=== PATIENT | male | born 1975 | race Caucasian/White ===

== ENCOUNTER 2022-03-05 18:53 | Inpatient (IN) ==
[2022-03-05 19:25] LABS: Basophils # (auto) 0.04 K/uL (0-0.2); Basophils % (auto) 0.5 %; Eosinophils # (auto) 0.09 K/uL (0-0.50); Eosinophils % (auto) 1.1 %; Hematocrit (blood only) 44.7 % (40.1-51.0); Hemoglobin 14.8 g/dl (14.0-18.0); Immature Granulocytes # (auto) 0.02 K/uL (0.00-0.02); Immature Granulocytes % (auto) 0.2 %; Lymphocytes # (auto) 2.11 K/uL (1.2-3.4); Lymphocytes % (auto) 25.7 %; Mean Corpuscular Hemoglobin 28.8 pg (25.0-34.0); Mean Corpuscular Hgb Conc 33.1 g/dL (32.0-36.0); Mean Platelet Volume 9.2 fL (9.4-12.4); Monocytes # (auto) 0.62 K/uL (0.24-0.82); Monocytes % (auto) 7.5 %; Neutrophils # (auto) 5.34 K/uL (1.4-6.5); Platelet Count 359 K/uL (130-400); RDW Coefficient of Variation 15.5 % (11.5-14.5); RDW Standard Deviation 49.1 fL (36.4-46.3); Red Blood Count 5.14 M/uL (4.63-6.08); White Blood Count 8.22 K/ul (4.8-10.8)
[2022-03-05 19:38] LABS: INR 1.2 (0.9-1.1); Partial Thromboplastin Ratio 0.9; Partial Thromboplastin Time 26.1 Seconds (21.0-31.0); Prothrombin Time 12.5 Seconds (9.0-12.0)
[2022-03-05 19:52] LABS: Troponin I High Sensitivity 35.1 pg/ml (0-20)
[2022-03-05 19:55] LABS: Albumin Globulin Ratio 1.3 (0.9-2); Albumin Level 3.9 gm/dl (3.4-5.0); BUN Creatinine Ratio 17.3 (10-20); Bilirubin,Total 1.1 mg/dl (0.2-1.0); Calcium 9.5 mg/dl (8.5-10.1); Creatinine Clr Calc Pharmacy 93.5 ml/min; Est GFR (African American) 98.6 ml/min; Est GFR (Non-African American) 85.1 ml/min; Globulin 3.1 gm/dl (2.5-4.0); Potassium 3.7 mmol/L (3.5-5.1)
--- NOTE | 2022-03-05 21:03 | XRay Report ---
XR chest 1V portable HISTORY: Atypical chest pain. Cough. COMPARISON: None. FINDINGS: No pneumothorax. No pleural effusions. The lungs are clear. The cardiac silhouette is mildl y enlarged. Cervical spinal fusion hardware is noted. No acute fractures identified. IMPRESSION: Mild cardiomegaly. ACT 112: Negative or not required by law. Electronically signed by: Misha Jerome M.D. 03/05/2022 9:02 PM
--- NOTE | 2022-03-05 23:03 | Emergency Department Note ---
Impression & Plan Chest pain, Abnormal EKG, Elevated troponin I level ED Provider Note NAME: JUDY READ AGE: 46 SEX: M : 1975 ARRIVES VIA: Walk-In INFORMANT: Patient, ED PROVIDER(S): Randolph Alejandro DO CHIEF COMPLAINT: Chest pain HPI: The patient is a 46-year-old male who presented to the emergency department for an evaluation of chest discomfort. The patient's been noticing chest discomfort as well as difficulty breathing. The patient states that the symptoms began over the course the last few weeks. He was seen at an outside facility and then transferred [place]. He states he had a work-up at that time but was discharged to follow-up as an outpatient. He has no primary bilingual patient support caseworker. His previous bilingual patient support caseworker retired. He has a history of ischemic cardiomyopathy. The patient has not had any cardiac work-up in some time. He presented to our facility today with the hopes of being evaluated for his chest discomfort. ROS: See above HPI for pertinent positives & negatives. A total of 10 systems reviewed and were otherwise negative. PAST MEDICAL HISTORY: See Below PAST SURGICAL HISTORY: See Below FAMILY HISTORY: See Below SOCIAL HISTORY: See Below HOME MEDICATIONS: See Below ALLERGIES: See Below VITALS: See Below PHYSICAL EXAMINATION: GENERAL: Patient is awake alert in no acute distress patient is resting comfortably and showing no signs of anxiety EYES: The conjunctivae are clear. The pupils are round and reactive. EARS, NOSE, MOUTH AND THROAT: The nose is without any evidence of any deformity. NECK: The neck is nontender and supple. RESPIRATORY: Diminished breath sounds are noted throughout. There is no tachypnea or conversational dyspnea. CARDIOVASCULAR: Regular rate and rhythm noted there no murmurs rubs or gallops normal S1 normal S2. GASTROINTESTINAL: The abdomen is soft. Abdomen is nontender. MUSCULOSKELETAL/EXTREMITIES: There is no evidence of gross deformity full range of motion is noted in the hips and shoulders. SKIN: Trace pedal edema was noted bilaterally. NEUROLOGIC: Patient is awake alert and oriented x3 MEDICAL DECISION MAKING: The patient is a 46-year-old male who presented to the emergency department for an evaluation of chest pain. The patient does have a history of coronary artery disease as well as cardiomyopathy. He states he has been doing well and taking all of his usual medications. He was seen at an outside facility recently for the similar complaints. He was transferred [place]. He states he had an observation at [place] but never had a complete cardiac work-up. He presents to our emergency department today requesting a full cardiac work-up. I discussed the patient's laboratory and radiographic studies with him. I also discussed the limitations of the emergency department work-up for chest pain with him. The patient had serial troponin measurements. He does have an underlying EKG which is abnormal. I have no previous EKG to compare this to. This reason and the patient's past medical history I discussed his condition with the on-call [facility] hospitalist. They have agreed to evaluate the patient in the emergency department. He was treated with aspirin in the emergency department. Triage Nursing notes reviewed. Prior medical records reviewed Vital Signs: reviewed and remarkable for elevated blood pressure. Differential diagnosis: Cardiac ischemia, aortic dissection, pulmonary embolism, pneumothorax, pneumonia, pericarditis, myocarditis, esophageal rupture, GERD, cholecystitis, pancreatitis, musculoskeletal, as well as other pathologies. ER treatment provided: See below Diagnostics interpreted by me: ECG: EKG was obtained in the emergency department. My interpretation is sinus tachycardia [address] segment depressions were noted in the inferior lateral leads. No previous tracing was available Cardiac Monitoring: An order was placed for continuous cardiac monitoring. The monitor shows a rate of 96 bpm with sinus rhythm. Laboratory studies: As stated above and show below. Imaging studies: See below. Radiographic imaging was reviewed by myself Consultation(s): I discussed this case with Dr. Salas who [facility]. Past Med/Surg History Medical History CAD (coronary atherosclerotic disease) High cholesterol History of heart attack Hypertension Social History Smoking Status: Current every day smoker Preferred Language: Spanish Feels Safe at Home: Yes Allergies Allergies Allergy/AdvReac Type Severity Reaction Status Date / Time Sulfa (Sulfonamide Allergy Intermediate Hives Verified 03/06/22 00:12 Antibiotics) Home Meds Home Medications Medication Instructions Recorded Confirmed albuterol sulfate 90 mcg/actuation 2 puff inhalation DIRECTED PRN 03/06/22 03/06/22 aerosol inhaler Shortness Of Breath Results & Data (ED) Vital Signs Vital Signs - 24 hr 03/05/22 18:59 03/05/22 22:33 03/05/22 22:47 Temperature 35.9 C L Temperature Source Temporal Artery Scan Pulse Rate 111 H Pulse Rate [Apical] 104 H 99 H Pulse Rhythm [Apical] Regular Pulse Strength [Apical] Normal Respiratory Rate 18 20 Respiratory Effort / Characteristics Non-Labored Spontaneous Non-Labored Spontaneous Respiratory Depth Normal Normal Respiratory Pattern Regular Blood Pressure 147/104 H Blood Pressure [Right Arm] 146/94 H Blood Pressure Mean 118 Blood Pressure Mean [Right Arm] 111 Blood Pressure Position Sitting Blood Pressure Position [Right Arm] Sitting Pulse Oximetry 98 95 98 Oxygen Delivery Method Room Air Room Air Room Air Sepsis Recent Fever Within 48 Hours No Sepsis New/Unexplained Change in Mental Status No Sepsis Action Taken by Nursing No Action Required 03/05/22 23:00 03/05/22 23:30 Temperature Temperature Source Pulse Rate 98 H Pulse Rate [Apical] Pulse Rhythm [Apical] Pulse Strength [Apical] Respiratory Rate 20 20 Respiratory Effort / Characteristics Respiratory Depth Respiratory Pattern Blood Pressure 129/96 123/81 Blood Pressure [Right Arm] Blood Pressure Mean 107 95 Blood Pressure Mean [Right Arm] Blood Pressure Position Blood Pressure Position [Right Arm] Pulse Oximetry 97 100 Oxygen Delivery Method Room Air Room Air Sepsis Recent Fever Within 48 Hours Sepsis New/Unexplained Change in Mental Status Sepsis Action Taken by Care Home Medications Current Medication List: was personally reviewed by me Laboratory Data Attestation: I reviewed the patient's lab results. 03/05/22 19:10 03/05/22 19:10 Lab Results 03/05/22 03/05/22 03/05/22 Range/Units 19:10 19:10 19:10 WBC 8.22 (4.8-10.8) K/ul RBC 5.14 (4.63-6.08) M/uL Hgb 14.8 (14.0-18.0) g/dl Hct 44.7 (40.1-51.0) % MCV 87.0 (80.0-100.0) fL MCH 28.8 (25.0-34.0) pg MCHC 33.1 (32.0-36.0) g/dL RDW Std Deviation 49.1 H (36.4-46.3) fL RDW Coeff of Nicolás 15.5 H (11.5-14.5) % Plt Count 359 (130-400) K/uL MPV 9.2 L (9.4-12.4) fL Immature Gran % (Auto) 0.2 % Neut % (Auto) 65.0 % Lymph % (Auto) 25.7 % Hickman % (Auto) 7.5 % Eos % (Auto) 1.1 % Baso % (Auto) 0.5 % Neut # (Auto) 5.34 (1.4-6.5) K/uL Lymph # (Auto) 2.11 (1.2-3.4) K/uL Hickman # (Auto) 0.62 (0.24-0.82) K/uL Eos # (Auto) 0.09 (0-0.50) K/uL Baso # (Auto) 0.04 (0-0.2) K/uL Immature Gran # (Auto) 0.02 (0.00-0.02) K/uL PT 12.5 H (9.0-12.0) Seconds INR 1.2 H (0.9-1.1) APTT 26.1 (21.0-31.0) Seconds PTT Ratio 0.9 Sodium 138 (136-145) mmol/L Potassium 3.7 (3.5-5.1) mmol/L Chloride 99 (98-107) mmol/L Carbon Dioxide 31 (21-32) mmol/L Anion Gap 8 (3-11) BUN 18 (6-23) mg/dl Creatinine 1.04 (0.6-1.4) mg/dl Est Cr Clr Drug Dosing 93.5 ml/min Est GFR ( Amer) 98.6 ml/min Est GFR (Non-Af Amer) 85.1 ml/min BUN/Creatinine Ratio 17.3 (10-20) Glucose 93 (70-99(Fasting)) mg/dl Calcium 9.5 (8.5-10.1) mg/dl Total Bilirubin 1.1 H (0.2-1.0) mg/dl AST 28 (13-39) U/L ALT 22 (7-52) U/L Alkaline Phosphatase 88 (34-104) U/L Troponin I High Sens 35.1 H (0-20) pg/ml Total Protein 7.0 (6.0-8.3) gm/dl Albumin 3.9 (3.4-5.0) gm/dl Globulin 3.1 (2.5-4.0) gm/dl Albumin/Globulin Ratio 1.3 (0.9-2) SARS-CoV-2, RNA, NAAT (NEGATIVE) 03/05/22 03/05/22 Range/Units 21:43 23:16 WBC (4.8-10.8) K/ul RBC (4.63-6.08) M/uL Hgb (14.0-18.0) g/dl Hct (40.1-51.0) % MCV (80.0-100.0) fL MCH (25.0-34.0) pg MCHC (32.0-36.0) g/dL RDW Std Deviation (36.4-46.3) fL RDW Coeff of Nicolás (11.5-14.5) % Plt Count (130-400) K/uL MPV (9.4-12.4) fL Immature Gran % (Auto) % Neut % (Auto) % Lymph % (Auto) % Hickman % (Auto) % Eos % (Auto) % Baso % (Auto) % Neut # (Auto) (1.4-6.5) K/uL Lymph # (Auto) (1.2-3.4) K/uL Hickman # (Auto) (0.24-0.82) K/uL Eos # (Auto) (0-0.50) K/uL Baso # (Auto) (0-0.2) K/uL Immature Gran # (Auto) (0.00-0.02) K/uL PT (9.0-12.0) Seconds INR (0.9-1.1) APTT (21.0-31.0) Seconds PTT Ratio Sodium (136-145) mmol/L Potassium (3.5-5.1) mmol/L Chloride (98-107) mmol/L Carbon Dioxide (21-32) mmol/L Anion Gap (3-11) BUN (6-23) mg/dl Creatinine (0.6-1.4) mg/dl Est Cr Clr Drug Dosing ml/min Est GFR ( Amer) ml/min Est GFR (Non-Af Amer) ml/min BUN/Creatinine Ratio (10-20) Glucose (70-99(Fasting)) mg/dl Calcium (8.5-10.1) mg/dl Total Bilirubin (0.2-1.0) mg/dl AST (13-39) U/L ALT (7-52) U/L Alkaline Phosphatase (34-104) U/L Troponin I High Sens 34.2 H (0-20) pg/ml Total Protein (6.0-8.3) gm/dl Albumin (3.4-5.0) gm/dl Globulin (2.5-4.0) gm/dl Albumin/Globulin Ratio (0.9-2) SARS-CoV-2, RNA, NAAT NEGATIVE (NEGATIVE) Administered Medications Discontinued Medications Aspirin (Aspirin Chew 324 Mg) 324 mg PO NOW STA Stop: 03/05/22 23:07 Last Admin: 03/05/22 23:12 Dose: 324 mg Documented By: LANRE Potassium Chloride (Potassium Chloride Crtab 20 Meq Tabcr) 40 meq PO NOW STA Stop: 03/06/22 00:37 Last Admin: 03/06/22 00:55 Dose: 40 meq Documented By: LANRE Imaging Data Radiologist's Impression: Chest X-Ray 03/05/22 19:04 XR chest 1V portable HISTORY: Atypical chest pain. Cough. COMPARISON: None. FINDINGS: No pneumothorax. No pleural effusions. The lungs are clear. The cardiac silhouette is mildly enlarged. Cervical spinal fusion hardware is noted. No acute fractures identified. IMPRESSION: Mild cardiomegaly. ACT 112: Negative or not required by law. Electronically signed by: Misha Jerome M.D. 03/05/2022 9:02 PM Discharge Plan Visit Data Chief Complaint: Cardiac Assessment Stated Complaint: HEART ISSUES, LOW BLOOD FLOW, ENLARGED ED Provider: Randolph Alejandro Discharge Problem: Chest pain, Abnormal EKG, Elevated troponin I level Patient Disposition: Being Evaluated by Hospitalist Discharge Instructions Interventions: ED Discharge Assessment Last Done: 03/06/22 00:39
[2022-03-05] MEDS ORDERED: ASPIRIN CHEW 324 MG PO STA (23:06)
--- NOTE | 2022-03-05 23:40 | History & Physical Report ---
Date of Service March 05, 2022 Assessment & Plan (1) Chest pain: Plan: 46-year-old man prior history of MT 2 years ago who presents with concern for persistent cough, and progressive chest discomfort, exertional dyspnea, paroxysmal nocturnal dyspnea x3 months. Admitted for further evaluation of abnormal EKG findings, and stable but mildly elevated troponin. Chest discomfort/elevated troponin -History of CAD (MT 2 years ago). No cardiac follow-up. Current everyday smoker. Recent echo 3 days ago showing severely diminished EF, per patient (unable to obtain records at this time) -ST depression in lateral leads on EKG, troponin of 35.1, 34.2 on admission. -Now s/p aspirin 324 mg x 1 in ED, KCl 40 mEq. -Given gradual presentation of symptoms, mildly elevated troponin on admission, suspect chronic or late MT vs acute MT/ACS. May also represent early presentation of CHF. * Admit to MedSurg with telemetry for evaluation of likely chronic/late MT * Cardiology consult for medical management. Patient will also likely need to establish care as he does not have a church administrator at present * AM TTE echo to assess LV function. BNP pending * Valsartan 80 mg daily * Aspirin 81 mg daily * Rosuvastatin 20 mg daily * As needed nitroglycerin, morphine for chest pain History of coronary artery disease -MT 2 years ago without proper cardiology follow-up since care home of former church administrator. * Cardiology consult, as above. Recommend establishing care as patient in need of church administrator * Recommend outpatient primary care follow-up Current everyday smoker * Nicotine patch * Recommend smoking cessation conversation Code: Full code Dispo: Med-Surg telemetry FEN/GI: NPO DVT Prophylaxis: Heparin 5000 units every 12 hours PT/OT: No Consults: Cardiology (2) Elevated troponin I level: (3) Abnormal EKG: History of Present Illness Primary Care Provider: NO PCP Eagle is a 46-year-old man with a history of CAD (MT 2 years ago) who presented to the emergency department for evaluation of chest discomfort. Specifically, he reports persistent cough, worsening shortness of breath with exertion, and orthopnea x3 months. As his symptoms began with cough, he thought it was a cold. After multiple treatments for presumed upper respiratory infection times several months, PCP recommended he go to the hospital for cardiac evaluation. He reports he got a "heart ultrasound" at [facility] showing a severely reduced EF from prior baseline. He was subsequently transferred to [place], where he reports he was discharged for outpatient follow-up. However, he has no church administrator, as his former church administrator retired. Therefore, he presented to this hospital to be evaluated for his symptoms. In the ED, vitals were notable for tachycardia to the 100s, and a blood pressure of 147/104. Labs were notable for PT 4.5, INR of 1.2, and an elevated high- sensitivity troponin of 35.1 (subsequent 2-hr troponin 34.2). EKG showed nonspecific ST depression in inferolateral leads. CXR notable for mild cardiomegaly. He received aspirin 324 mg x 1, and was admitted for evaluation of his abnormal EKG, troponin in the setting of his recent chest discomfort. On admission, he reports persistent productive cough, improved SOB, chest discomfort at the base of his sternum, and diaphoresis. ROS + bloating, orthopnea, paroxysmal nocturnal dyspnea, LE swelling, nausea, vomiting, and tingling in his fingers. Allergies Allergy/AdvReac Type Severity Reaction Status Date / Time Sulfa (Sulfonamide Allergy Intermediate Hives Verified 03/06/22 00:12 Antibiotics) Home Medications Medication Instructions Recorded Confirmed Type albuterol sulfate 90 mcg/actuation 2 puff inhalation DIRECTED PRN 03/06/22 03/06/22 History aerosol inhaler Shortness Of Breath Past Med/Surg History Medical History (Updated 03/07/22 @ 10:39 by Rich Mcnulty MD) Cardiomyopathy High cholesterol History of heart attack Hypertension Tobacco abuse Social History Smoking Status: Current every day smoker Cigarettes Per Day: 20; Hx Alcohol Use: No Hx Substance Use: Yes Last Used Substance: Hours (ago) Preferred Language: [place] Islander Communication Ability: Effective Consulting It Architect Required: No Beliefs That Will Affect Care: None Current Living Situation: Spouse Feels Safe at Home: Yes Assistive Devices: None Review of Systems Review of Systems: All systems reviewed & are unremarkable except as noted in HPI & below Physical Exam Physical Exam: General: Tired-appearing man who is otherwise alert, interactive, and in no acute distress. HEENT: Normocephalic, atraumatic. EOM intact. Good conjugate gaze. Nares patent. Moist mucosal membranes. Neck: Supple. No lymphadenopathy. Normal ROM. CV: Tachycardic. Normal S1 and S2. No murmurs gallops or rubs. Respiratory: Faint inspiratory, expiratory wheeze heard diffusely on auscultation. Abdomen: Soft, nondistended abdomen. No bruits heard on auscultation. No tenderness to deep palpation. Extremities: Capillary refill <2 sec. 2+ dp equal bilaterally. No pedal edema. Neuro: Alert and oriented x3. Skin: Clean, dry, and intact. No rashes, bruises, or erythema. Results & Data Results & Data ([facility]) Vital Signs (Past 12 Hours) Vital Signs Temp Pulse Pulse Resp BP BP Pulse Ox 03/05/22 23:00 98 H 20 129/96 97 03/05/22 22:47 99 H 98 03/05/22 22:33 104 H 20 146/94 H 95 03/05/22 18:59 35.9 C L 111 H 18 147/104 H 98 O2 Del Method 03/05/22 23:00 Room Air 03/05/22 22:47 Room Air 03/05/22 22:33 Room Air 03/05/22 18:59 Room Air Supervising Physician Co-Signing Physician Notes Attending addendum: I have physically seen this patient, have supervised the medical residents contreras stark, and agree with the H&P unless as otherwise noted. Assessment and Plan: Chest pain/elevated troponin/CAD/history of MT 3 years ago/systolic heart dysfunction- Abnormal EKG with ST depression lateral leads In ED given aspirin 324 mg and potassium chloride 40 mEq The patient will be admitted to telemetry for serial cardiac enzymes, serial EKG's, cardiac rhythm monitoring and a 2-D echocardiogram with Dopplers. Continue aspirin 81 mg daily and valsartan 80 mg daily Cardiology consult Tobacco use disorder- Nicotine patch Cessation counseling Remaining orders and notations as noted Resident Activity Tracking Resident Involvement: Resident Care Provided Care Provided: Adult Hospital Medicine (1) Chest pain Chest pain type: unspecified Qualified Code(s): R07.9 - Chest pain, unspeci fied
[2022-03-06] MEDS ORDERED: POTASSIUM CHLORIDE CRTAB 20 MEQ TABCR PO STA (00:36)
[2022-03-06] MEDS ORDERED: MoRPHine SULFATE 2 MG/ML CARP IV PRN ×2 (00:41→22:04)
[2022-03-06] MEDS ORDERED: ACETAMINOPHEN 325 MG TAB PO PRN (00:41)
[2022-03-06] MEDS ORDERED: ONDANSETRON INJ 2 MG/ML 2 ML VIAL IV PRN (00:41)
[2022-03-06] MEDS ORDERED: POLYETHYLENE (MIRALAX) 17 GM PACK PO PRN (00:41)
[2022-03-06] MEDS ORDERED: NITROGLYCERIN SL 0.4 MG/TAB TAB SL PRN (00:41)
[2022-03-06] MEDS ORDERED: VALSARTAN 80 MG TAB PO STA (01:01)
[2022-03-06] MEDS ORDERED: ALBUTEROL HFA 8 GM INHALER INH ONE (01:12)
[2022-03-06 01:49] LABS: Magnesium 1.9 mg/dl (1.7-2.4)
[2022-03-06 01:55] LABS: Phosphorus 3.7 mg/dl (2.5-4.9)
[2022-03-06] MEDS ORDERED: FLUARIX QUADRIVALENT 0.5 ML SYR IM ONE (05:04)
[2022-03-06] MEDS ORDERED: PNEUMOCOCCAL POLYSACCHARIDES 25 MCG/0.5 ML VIAL/SYR IM ONE (05:04)
[2022-03-06 06:54] LABS: Basophils # (auto) 0.06 K/uL (0-0.2); Basophils % (auto) 0.7 %; Eosinophils # (auto) 0.08 K/uL (0-0.50); Hematocrit (blood only) 44.3 % (40.1-51.0); Hemoglobin 14.8 g/dl (14.0-18.0); Immature Granulocytes # (auto) 0.02 K/uL (0.00-0.02); Immature Granulocytes % (auto) 0.2 %; Lymphocytes % (auto) 28.7 %; Mean Corpuscular Hemoglobin 28.7 pg (25.0-34.0); Mean Corpuscular Hgb Conc 33.4 g/dL (32.0-36.0); Mean Platelet Volume 9.6 fL (9.4-12.4); Monocytes # (auto) 0.63 K/uL (0.24-0.82); Monocytes % (auto) 7.9 %; Neutrophils # (auto) 4.92 K/uL (1.4-6.5); Neutrophils % (auto) 61.5 %; Platelet Count 368 K/uL (130-400); RDW Coefficient of Variation 15.6 % (11.5-14.5); RDW Standard Deviation 48.8 fL (36.4-46.3); Red Blood Count 5.15 M/uL (4.63-6.08); White Blood Count 8.01 K/ul (4.8-10.8)
[2022-03-06 07:31] LABS: Troponin I High Sensitivity 32.4 pg/ml (0-20)
[2022-03-06 07:48] LABS: Albumin Level 3.8 gm/dl (3.4-5.0); Bilirubin,Total 1.3 mg/dl (0.2-1.0); Calcium 9.1 mg/dl (8.5-10.1)
[2022-03-06 07:54] LABS: BUN Creatinine Ratio 22.2 (10-20); Creatinine Clr Calc Pharmacy 142.4 ml/min; Est GFR (African American) 117.5 ml/min; Est GFR (Non-African American) 101.4 ml/min
[2022-03-06 07:56] LABS: Albumin Globulin Ratio 1.3 (0.9-2); Globulin 2.9 gm/dl (2.5-4.0); Total Protein 6.7 gm/dl (6.0-8.3)
[2022-03-06] MEDS: NICOTINE 21 MG/24 HR TDSY TD SCH (08:41)
[2022-03-06] MEDS: ASPIRIN 81 MG ECTAB PO SCH (08:42)
[2022-03-06] MEDS: ROSUVASTATIN CALCIUM 20 MG TAB PO SCH (08:42)
[2022-03-06] MEDS: HEPARIN SOD 5,000 UNIT/0.5 ML VIAL SQ SCH ×2 (08:42→21:26)
[2022-03-06] MEDS ORDERED: VALSARTAN 80 MG TAB PO SCH (09:00)
--- NOTE | 2022-03-06 09:38 | Hospitalist Progress Note ---
Date of Service March 06, 2022 Assessment & Plan (1) Chest pain: Plan: 46-year-old man prior history of NM 2 years ago with associated EF reduction to 15% now recovering to 40%, current daily tobacco use, who presents with concern for persistent cough, and progressive chest discomfort, exertional dyspnea, paroxysmal nocturnal dyspnea x3 months. Admitted for further evaluation of abnormal EKG findings, and stable but mildly elevated troponin. Acute on chronic HFrEF exacerbation -BNP 2200 and CXR- mild cardiomegaly w/o overt pulmonary edema -TTE pending. Awaiting previous TTE results from [facility] which reportedly showed severely reduced EF -Cardiology consulted -Initiate Lasix 40 mg IV daily -Initiate spironolactone 25 mg daily -Discontinue valsartan, initiate Entresto -Initiate beta roque once acute decompensation resolving and HR/BP permits -Should initiate SGLT2 inhibitor in near future after acute decompensation resolves Coronary artery disease -Troponin 35 with downtrend to 32 -EKG with ST-changes of V5-V6 though no overt elevations/depressions -Suspect pt's chest discomfort driven by CHF as above rather than ACS/CAD, mild troponin elevation + ST changes likely due to demand ischemia -Continue statin, aspirin, Entresto -Cardiology consulted -Initiate beta roque later during hospital stay -Cardiomyopathy etiology uncertain- awaiting [place] records for review -May need cardiac catheterization this stay if cardiomyopathy is new Code: Full code Dispo: Medical/surgical with telemetry FEN/GI: Low-salt diet DVT Prophylaxis: Heparin 5000u BID PT/OT: Will order Consults: Cardiology (2) Elevated troponin I level: (3) Abnormal EKG: Admission and Anticipated Discharge Date Admission Date: March 05, 2022 Supervising Physician Co-Signing Physician Notes I personally examined the patient and verified all rachel points of history and exam, discussed case, and agree with decision making with Dr Uribe. Feeling better but still not quite breathing perfectly. Extensive discussion of his prior historyafter his NM was actually walking up to about as much as 5 miles a dayits only been in the last month or so that he has had a drastic reduction in exercise tolerance. While it was not entirely clear if he ran out of all of his meds or some or how long he was out of his medicationsbetween his regular physicians retiring or moving away, it does sound like he was out of medications at least some for the last monthalthough it was odd to because even with very directed questioning he would give sort of vague and roundabout answers. Vitals noted, in general he is awake and alert pleasant no distress. HEENT normocephalic atraumatic mucous membranes moist. Lungs show faint bibasilar rales. No focal neurodeficits. Acute on chronic HFrEF with severe ischemic cardiomyopathydiuresis, afterload reduction, med management. Hopefully home soon. Definitely needs close outpatient follow-up. Otherwise as above. Subjective No acute events overnight. Pt was tired and sleepy on evaluation this morning. He denied any active chest pain and felt his breathing was very slightly improving. Otherwise reported fatigue. Denied other acute complaints. Review of Systems Review of Systems: Per HPI Physical Exam Physical Exam: General: Tired-appearing man laying in bed HEENT: Moist mucous membranes Neck: No JVD b/l CV: RRR, normal S1 and S2, Low-grade systolic murmur Respiratory: Diffuse inspiratory and expiratory wheezes, diminished breath sounds Abdomen: Soft, nondistended abdomen. No tenderness to deep palpation. Extremities: Capillary refill <2 sec. 2+ dorsalis pedis pulses equal bilaterally. No pedal edema. Skin: No rashes, bruises, or erythema. Results & Data Results & Data ([facility]) Vital Signs (Past 12 Hours) Vital Signs Temp Pulse Pulse Resp BP BP Pulse Ox 03/06/22 07:59 03/06/22 07:59 36.6 C 89 20 123/86 99 03/06/22 06:35 03/06/22 06:00 88 17 126/94 92 03/06/22 05:30 19 138/97 95 03/06/22 05:00 90 20 135/97 92 03/06/22 04:30 92 H 20 118/92 92 03/06/22 04:04 90 17 119/84 95 03/06/22 03:30 93 H 22 114/84 99 03/06/22 03:00 94 H 20 123/100 100 03/06/22 00:47 96 H 21 145/112 H 100 03/05/22 23:30 20 123/81 100 03/05/22 23:00 98 H 20 129/96 97 03/05/22 22:47 99 H 98 03/05/22 22:33 104 H 20 146/94 H 95 Pulse Ox O2 Del Method O2 Del Method 03/06/22 07:59 99 Room Air 03/06/22 07:59 Room Air 03/06/22 06:35 Room Air 03/06/22 06:00 Room Air 03/06/22 05:30 Room Air 03/06/22 05:00 Room Air 03/06/22 04:30 Room Air 03/06/22 04:04 Room Air 03/06/22 03:30 Room Air 03/06/22 03:00 Room Air 03/06/22 00:47 Room Air 03/05/22 23:30 Room Air 03/05/22 23:00 Room Air 03/05/22 22:47 Room Air 03/05/22 22:33 Room Air Resident Activity Tracking Resident Involvement: Resident Care Provided Care Provided: Adult Hospital Medicine (1) Chest pain Chest pain type: unspecified Qualified Code(s): R07.9 - Chest pain, unspecified
[2022-03-06 09:44] LABS: Chol HDL Ratio 5.7 (0-5)
[2022-03-06] MEDS ORDERED: ALBUTEROL HFA 8 GM INHALER INH PRN (10:58)
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
[2022-03-06] MEDS: SPIRONOLACTONE 25 MG TAB PO SCH (12:21)
[2022-03-06] MEDS: FUROSEMIDE 40 MG/4 ML VIAL IV SCH (12:22)
--- NOTE | 2022-03-06 15:15 | XCELERA ---
[id number]
--- NOTE | 2022-03-06 19:00 | Billing Data ---
Date of Service March 06, 2022 Coding Level of Care Code 20862 SUB INP/OBS CARE MIN
[2022-03-06] MEDS ORDERED: ACETAMINOPHEN 325 MG SUPP PR STA (21:14)
[2022-03-06] MEDS ORDERED: MoRPHine SULFATE 2 MG/ML CARP IV STA (22:04)
[2022-03-07] MEDS: ACETAMINOPHEN 500 MG TAB PO SCH ×3 (05:00→21:12)
--- NOTE | 2022-03-07 06:39 | Electrocardiogram Report ---
Test Reason : Blood Pressure : / mmHG Vent. Rate : 108 BPM Atrial Rate : 108 BPM P-R Int : 170 ms QRS Dur : 122 ms QT Int : 368 ms P-R-T Axes : 072 -40 078 degrees QTc Int : 493 ms Sinus tachycardia Biatrial enlargement Left axis deviation Non-specific intra-ventricular conduction block Left ventricular hypertrophy with QRS widening Nonspecific ST and T wave abnormality Abnormal ECG No previous ECGs available Confirmed by Rich Mcnulty ([id number]) on 03/07/2022 6:38:53 AM Referred By: REFERRED SELF Confirmed By:Rich Mcnulty
[2022-03-07] MEDS ORDERED: MoRPHine SULFATE 2 MG/ML CARP IV PRN (07:22)
[2022-03-07 07:23] LABS: Basophils # (auto) 0.04 K/uL (0-0.2); Basophils % (auto) 0.6 %; Eosinophils # (auto) 0.08 K/uL (0-0.50); Eosinophils % (auto) 1.1 %; Hematocrit (blood only) 46.2 % (40.1-51.0); Hemoglobin 15.5 g/dl (14.0-18.0); Immature Granulocytes # (auto) 0.01 K/uL (0.00-0.02); Immature Granulocytes % (auto) 0.1 %; Lymphocytes # (auto) 2.35 K/uL (1.2-3.4); Lymphocytes % (auto) 32.4 %; Mean Corpuscular Hemoglobin 28.4 pg (25.0-34.0); Mean Corpuscular Hgb Conc 33.5 g/dL (32.0-36.0); Mean Corpuscular Volume 84.8 fL (80.0-100.0); Mean Platelet Volume 9.6 fL (9.4-12.4); Monocytes # (auto) 0.75 K/uL (0.24-0.82); Monocytes % (auto) 10.3 %; Neutrophils # (auto) 4.03 K/uL (1.4-6.5); Neutrophils % (auto) 55.5 %; Platelet Count 372 K/uL (130-400); RDW Coefficient of Variation 15.8 % (11.5-14.5); RDW Standard Deviation 48.3 fL (36.4-46.3); Red Blood Count 5.45 M/uL (4.63-6.08); White Blood Count 7.26 K/ul (4.8-10.8)
[2022-03-07 07:28] LABS: Estimated Average Glucose 146 mg/dl; Hemoglobin A1C 6.7 % (4.5-5.6)
[2022-03-07] MEDS: HEPARIN SOD 5,000 UNIT/0.5 ML VIAL SQ SCH ×2 (08:08→21:12)
[2022-03-07 08:44] LABS: Albumin Globulin Ratio 1.3 (0.9-2); Albumin Level 3.8 gm/dl (3.4-5.0); BUN Creatinine Ratio 22.3 (10-20); Bilirubin,Total 1.3 mg/dl (0.2-1.0); Calcium 8.9 mg/dl (8.5-10.1); Creatinine Clr Calc Pharmacy 79.5 ml/min; Est GFR (African American) 82.1 ml/min; Est GFR (Non-African American) 70.9 ml/min; Globulin 2.9 gm/dl (2.5-4.0); Magnesium 1.9 mg/dl (1.7-2.4); Phosphorus 3.5 mg/dl (2.5-4.9); Potassium 3.8 mmol/L (3.5-5.1); Total Protein 6.7 gm/dl (6.0-8.3)
[2022-03-07] MEDS ORDERED: VALSARTAN/SACUBITRIL 26/24MG TAB PO SCH (09:00)
[2022-03-07] MEDS: ROSUVASTATIN CALCIUM 20 MG TAB PO SCH (09:29)
[2022-03-07] MEDS: NICOTINE 21 MG/24 HR TDSY TD SCH (09:29)
[2022-03-07] MEDS: SPIRONOLACTONE 25 MG TAB PO SCH (09:30)
[2022-03-07] MEDS: ASPIRIN 81 MG ECTAB PO SCH (09:30)
[2022-03-07] MEDS: FUROSEMIDE 40 MG/4 ML VIAL IV SCH (09:30)
--- NOTE | 2022-03-07 10:16 | Cardiology Progress Note ---
Date of Service March 07, 2022 Assessment & Plan (1) Acute HFrEF (heart failure with reduced ejection fraction): (2) Cardiomyopathy: (3) Chest pain: (4) Palpitations: (5) Elevated troponin I level: (6) Mitral regurgitation: (7) Tricuspid regurgitation: (8) Pulmonary hypertension: (9) Tobacco abuse: (10) Ventricular tachycardia: (11) Paroxysmal SVT (supraventricular tachycardia): Plan ASSESSMENT/PLAN: 1. Acute heart failure with reduced EF: He appears hypervolemic. Received Lasix 40 mg IV this morning and yesterday. Had reasonable urine output. Labs suggest azotemia. Continue to monitor. Strict I's and O's.. Daily weights. Low-sodium diet, less than 2000 mg daily. During this hospital stay, he has been placed on Entresto and spironolactone. Will start metoprolol succinate 25 mg today. SGLT2 inhibitor in the near future. Heart failure program referral. 2. Cardiomyopathy: Nonischemic. Had cardiac catheterization at [facility] in 2019 with EF of 10 to 15% at that time. Other secondary work-up ordered. Medical therapy as above. ICD for primary prevention and no significant improvement at this time optimal medical therapy in 3 months. 3. Pulmonary hypertension: Likely at least due to CHF. Also likely to have COPD or emphysema given significant smoking history. RVSP likely to improve with diuresis. 4. Mitral and tricuspid regurgitation: Nonsevere mitral regurgitation with severe tricuspid regurgitation. These may improve with diuresis. Will monitor over time. 5. Chest pain: No CAD in June 2019. Continues to have intermittent chest discomfort. Troponin has been flat. May be due to CHF exacerbation. 6. Palpitations: Continue telemetry. Noted to have nonsustained ventricular tachycardia and nonsustained SVT. Beta-roque initiated. 7. Elevated troponin: Likely due to decompensated CHF. No CAD in 2019. 8. Ventricular tachycardia and SVT: Noted on telemetry. Unclear if he was symptomatic. Initiating beta-roque. 9. Disposition: Significantly ill gentleman with severely reduced LV systolic function. Cardiology will continue to follow along. Expect several day hospital stay. Patient care communicated with primary hospitalist, Dr. Leija. HF program referral. Highly complex medical issues. Admission and Anticipated Discharge Date Admission Date: March 05, 2022 Subjective He continues to have shortness of breath and orthopnea. He had an episode of chest discomfort today that apparently resolved with nitroglycerin. He spent most of our meeting today talking about his concerns with his bipolar disorder and making sure that he is receiving appropriate treatment. He has his medication list on his phone and it appears as though he takes Abilify. He denies syncope, edema, or bleeding. He has noted palpitations. He describes the chest pain as a flutter sensation but then later describes it as a sharp pain. He was chest pain-free at the time of our visit. Review of systems: As above. Physical Exam Physical Exam: Gen.: No acute distress. Alert. HEENT: Anicteric sclera. Neck: Elevated JVD. Hepatojugular reflux noted. Cardiac: No ventricular heave. Regular. Normal S1-S2. 2/6 holosystolic murmur best heard at the apex. No rubs or gallops. Pulmonary: Decreased breath sounds throughout both lung [place] with minimal wheezing. Abdomen: Soft, nontender, nondistended, with normoactive bowel sounds. No bruits noted. Extremities: 2+ radial pulses bilaterally. 2+ posterior tibialis pulses bilaterally. Trace bilateral pitting edema. No cyanosis. Psychiatric: Affect appears appropriate. Results & Data ([facility]) Vital Signs (Past 12 Hours) Vital Signs Temp Pulse Resp BP Pulse Ox O2 Del Method 03/07/22 07:50 36.7 C 84 20 157/78 H 99 Room Air 03/07/22 07:22 36.5 C 87 18 136/94 95 Room Air 03/06/22 22:58 36.6 C 92 H 18 138/101 H 98 Room Air Intake & Output 03/05/22 03/06/22 03/07/22 03/08/22 06:59 06:59 06:59 06:59 Intake Total 1020 / 1020 Output Total 2200 / 2200 Balance -1180 / -1180 Weight 290 lb 2.053 oz 164 lb 3.91 oz Laboratory Results Laboratory Results - last 24 hr 03/07/22 03/07/22 03/07/22 06:10 06:10 06:10 WBC 7.26 RBC 5.45 Hgb 15.5 Hct 46.2 MCV 84.8 MCH 28.4 MCHC 33.5 RDW Std Deviation 48.3 H RDW Coeff of Nicolás 15.8 H Plt Count 372 MPV 9.6 Immature Gran % (Auto) 0.1 Neut % (Auto) 55.5 Lymph % (Auto) 32.4 Cowley % (Auto) 10.3 Eos % (Auto) 1.1 Baso % (Auto) 0.6 Neut # (Auto) 4.03 Lymph # (Auto) 2.35 Cowley # (Auto) 0.75 Eos # (Auto) 0.08 Baso # (Auto) 0.04 Immature Gran # (Auto) 0.01 Sodium 133 L Potassium 3.8 Chloride 96 L Carbon Dioxide 29 Anion Gap 8 BUN 27 H Creatinine 1.21 D Est Cr Clr Drug Dosing 79.5 Est GFR ( Amer) 82.1 Est GFR (Non-Af Amer) 70.9 BUN/Creatinine Ratio 22.3 H Glucose 119 H Estimat Average Glucose 146 Hemoglobin A1c 6.7 H Calcium 8.9 Phosphorus 3.5 Magnesium 1.9 Total Bilirubin 1.3 H AST 26 ALT 21 Alkaline Phosphatase 80 Total Protein 6.7 Albumin 3.8 Globulin 2.9 Albumin/Globulin Ratio 1.3 Triglycerides 123 Cholesterol 163 LDL Cholesterol, Calc 111 VLDL Cholesterol, Calc 25 HDL Cholesterol 27 Cholesterol/HDL Ratio 6.0 H Diagnostic Findings Telemetry personally reviewed: 7 beat run of nonsustained ventricular tachycardia noted this morning. Also, at 11:31 PM on 01/04/2023, nonsustained SVT. Otherwise, sinus rhythm and overall heart rate trend has improved. Chart reviewed. Labs reviewed: Hyponatremia and labs suggest azotemia. [facility] outside records reviewed including discharge summary and cardiac catheteri zation report. Cardiac catheterization report [facility] 07/13/2019: No CAD. EF 10 to 15%. LVEDP 24. ECG personally reviewed 01/05/2023: Sinus rhythm 77 bpm. IVCD. Nonspecific T wave abnormality. Medications Administered Current Inpatient Medications Acetaminophen (Acetaminophen 500 Mg Tab) 1,000 mg PO Q8H JUSTINO Stop: 04/06/22 03:59 Last Admin: 03/07/22 05:00 Dose: 1,000 mg Albuterol (Albuterol Hfa 8 Gm Inhaler) 2 puffs INH Q4H PRN PRN Reason: dyspnea Stop: 04/05/22 10:57 Aspirin (Aspirin 81 Mg Ectab) 81 mg PO QAM JUSTINO Stop: 04/05/22 08:59 Last Admin: 03/07/22 09:30 Dose: 81 mg Heparin Sodium (Porcine) (Heparin Sod 5,000 Unit/0.5 Ml Vial) 5,000 units SQ Q12 [facility] Stop: 04/05/22 08:59 Last Admin: 03/07/22 08:08 Dose: Not Given Metoprolol Tartrate (Metoprolol Tartrate 25 Mg Tab) [facility] [place] Stop: 04/07/22 08:59 Miscellaneous (Remove Nicoderm Patch) 1 each N/A DAILY@0859 [facility] Stop: 04/05/22 08:58 Last Admin: 03/07/22 08:08 Dose: 1 each Morphine Sulfate (Morphine Sulfate 2 Mg/Ml Carp) 2 mg IV Q2H PRN PRN Reason: Pain Stop: 03/20/22 22:03 Nicotine (Nicotine 21 Mg/24 Hr Tdsy) 21 mg TD [facility] Stop: 04/05/22 08:59 Last Admin: 03/07/22 09:29 Dose: 21 mg Nitroglycerin (Nitroglycerin Sl 0.4 Mg/Tab Tab) 0.4 mg SL UD PRN PRN Reason: Chest Pain Stop: 04/05/22 00:40 Last Admin: 03/07/22 07:54 Dose: 0.4 mg Ondansetron HCl (Ondansetron Inj 2 Mg/Ml 2 Ml Vial) 4 mg IV Q6H PRN PRN Reason: Nausea Stop: 04/05/22 00:40 Last Admin: 03/07/22 07:14 Dose: 4 mg Polyethylene Glycol (Polyethylene (Miralax) 17 Gm Pack) 17 gm PO DAILY PRN PRN Reason: Constipation Stop: 04/05/22 00:40 Rosuvastatin Calcium (Rosuvastatin Calcium 20 Mg Tab) 40 mg PO [facility] Stop: 04/07/22 08:59 Sacubitril/Valsartan (Valsartan/Sacubitril 51/49 Mg Tab) 1 tab PO BID [facility] Stop: 04/06/22 20:59 Spironolactone (Spironolactone 25 Mg Tab) 25 [facility] [place] Stop: 04/05/22 11:44 Last Admin: 03/07/22 09:30 Dose: 25 mg PG Care Time/CCT Total # of Minutes Spent Total Time Spent with Patient: Total time spent is greater than 50% in coordination of care (as documented) at patient's floor/unit and/or counseling patient: Coding Level of Care Code 76008 SUB INP/OBS CARE 350MIN Diagnoses Acute HFrEF (heart failure with reduced ejection fraction) I50.21 Cardiomyopathy I42.9 Chest pain R07.9 Chest pain type: unspecified Palpitations R00.2 Elevated troponin I level R77.8 Mitral regurgitation I34.0 Tricuspid regurgitation I07.1 Pulmonary hypertension I27.20 Tobacco abuse Z72.0 Ventricular tachycardia I47.20 Paroxysmal SVT (supraventricular tachycardia) I47.1 (1) Chest pain Chest pain type: unspecified Qualified Code(s): R07.9 - Chest pain, unspecified
--- NOTE | 2022-03-07 10:41 | Hospitalist Progress Note ---
Date of Service March 07, 2022 Assessment & Plan (1) Chest pain: Plan: 46-year-old man prior history of ND 2 years ago with associated EF reduction to 15% now recovering to 40%, current daily tobacco use, who presents with concern for persistent cough, and progressive chest discomfort, exertional dyspnea, paroxysmal nocturnal dyspnea x3 months. Admitted for further evaluation of abnormal EKG findings, and stable but mildly elevated troponin. Acute on chronic HFrEF exacerbation -BNP 2200 and CXR- mild cardiomegaly w/o overt pulmonary edema -TTE -15-20% EF, severe global hypokinesis, LVH, severe biatrial dilation -Cardiology consulted -Today he is improving in regard to fluid status, -1.2L balance with Cr 0.9 - > 1.2 -Will switch Lasix 40 mg IV to PO tomorrow -Continue spironolactone 25 mg daily -Increased Entresto dose to today -Initiated Toprol 25 mg today -Will prescribe SGLT2 inhibitor on discharge -Will need 3 months of optimal therapy with EF < 35% before consideration of ICD for primary prevention of SCD Nonischemic cardiomyopathy -Troponin 35 with downtrend to 32 -EKG with ST-changes of V5-V6 though no overt elevations/depressions -Suspect pt's chest discomfort driven by CHF as above rather than ACS/CAD, mild troponin elevation + ST changes likely due to demand ischemia -Cardiology consulted -[place] records reviewed- catheterization 2019 does not suggest CAD -Continue medical management in interim- statin, aspirin, Entresto, beta roque Hyperlipidemia -Total 163, LDL 111, HDL 25 -Increased rosuvastatin to 40 mg today Type 2 diabetes -New diagnosis, A1C 6.7% -Avoiding SSI/basal insulin for now as BSGs acceptable -Will discuss lifestyle modification with patient Agitation -May be due to anxiety/depression rather than bipolar disorder although pt states he has this diagnosis -Will re-initiate his Abilify 5 mg daily per home medications Code: Full code Dispo: Medical/surgical with telemetry FEN/GI: Low-salt heart-healthy diet, 1500 ml fluid restriction DVT Prophylaxis: Heparin 5000u BID PT/OT: Will order Consults: Cardiology (2) Elevated troponin I level: (3) Abnormal EKG: Admission and Anticipated Discharge Date Admission Date: March 05, 2022 Supervising Physician Co-Signing Physician Notes I personally examined the patient and verified all rachel points of history and exam, discussed case, and agree with decision making with Dr Uribe. Overall feeling slightly but surely better. Probably does still have a little bit of orthopneapredominantly noted as a restlessness while he was trying to sleep. Vitals noted, in general he is awake and alert pleasant no distress. HEENT normocephalic atraumatic mucous membranes moist. Breathing unlabored no accessory muscle use good effort. Skin no rashes pallor or icterus. No focal neurodeficits. Acute on chronic HFrEF with severe ischemic cardiomyopathydiuresis, afterload reduction, continue to titrate med management. Hopefully home soon. Definitely needs close outpatient follow-up. Otherwise as above. Subjective Overnight, pt was reportedly irate and told hospitalist he has bipolar disorder that isn't being treated while he's here in the hospital. No behavioral disturbances. Earlier this morning around 8 AM, pt reportedly began to experience 10/10 sharp substernal L-sided chest pain along with nausea. He did receive nitroglycerin and by the time I came to evaluate him a few minutes after pain onset, he stated it was improving to a 7/10. EKG at the time was not concerning for new infarction. Review of Systems Review of Systems: Per HPI Physical Exam Physical Exam: General: Tired-appearing man laying in bed HEENT: Moist mucous membranes Neck: No JVD b/l CV: RRR, normal S1 and S2, Low-grade systolic murmur Respiratory: Diminished but improved breath sounds compared to day prior, no basilar crackles appreciated today, mild expiratory wheezes Abdomen: Soft, nondistended abdomen. No tenderness to deep palpation. Extremities: Capillary refill <2 sec. 2+ dorsalis pedis pulses equal bilaterall y. No pedal edema. Skin: No rashes, bruises, or erythema. Results & Data Results & Data ([facility]) Vital Signs (Past 12 Hours) Vital Signs Temp Pulse Resp BP Pulse Ox O2 Del Method 03/07/22 07:50 36.7 C 84 20 157/78 H 99 Room Air 03/07/22 07:22 36.5 C 87 18 136/94 95 Room Air 03/06/22 22:58 36.6 C 92 H 18 138/101 H 98 Room Air Resident Activity Tracking Resident Involvement: Resident Care Provided Care Provided: [facility] (1) Chest pain Chest pain type: unspecified Qualified Code(s): R07.9 - Chest pain, unspecified
[2022-03-07] MEDS: METOPROLOL SUCC 25MG EXT REL TAB PO SCH (11:13)
[2022-03-07 12:25] LABS: Ferritin 31.7 ng/ml (8-388)
[2022-03-07] MEDS: ARIPiprazole 5 MG TAB PO SCH (12:38)
--- NOTE | 2022-03-07 17:28 | Billing Data ---
Date of Service March 07, 2022 Coding Level of Care Code 96457 SUB INP/OBS CARE MIN
[2022-03-07] MEDS ORDERED: NICOTINE 21 MG/24 HR TDSY TD SCH (19:45)
[2022-03-07] MEDS ORDERED: MELATONIN 3 MG TAB PO PRN (20:45)
[2022-03-07] MEDS: VALSARTAN/SACUBITRIL 51/49 MG TAB PO SCH (21:13)
--- NOTE | 2022-03-08 00:35 | Billing Data ---
Date of Service March 08, 2022 Coding Level of Care Code 17336 INT INP/OBS CARE
[2022-03-08] MEDS: ACETAMINOPHEN 500 MG TAB PO SCH (04:41)
--- NOTE | 2022-03-08 06:53 | Discharge Summary ---
Date of Service March 08, 2022 Admission HPI Per Admitting Provider Eagle is a 46-year-old man with a history of CAD (CT 2 years ago) who presented to the emergency department for evaluation of chest discomfort. Specifically, he reports persistent cough, worsening shortness of breath with exertion, and orthopnea x3 months. As his symptoms began with cough, he thought it was a cold. After multiple treatments for presumed upper respiratory infection times several months, PCP recommended he go to the hospital for cardiac evaluation. He reports he got a "heart ultrasound" at [place] showing a severely reduced EF from prior baseline. He was subsequently transferred to [place], where he reports he was discharged for outpatient follow-up. However, he has no dye tub tender, as his former dye tub tender retired. Therefore, he presented to this hospital to be evaluated for his symptoms. In the ED, vitals were notable for tachycardia to the 100s, and a blood pressure of 147/104. Labs were notable for PT 4.5, INR of 1.2, and an elevated high- sensitivity troponin of 35.1 (subsequent 2-hr troponin 34.2). EKG showed nonspecific ST depression in inferolateral leads. CXR notable for mild cardiomegaly. He received aspirin 324 mg x 1, and was admitted for evaluation of his abnormal EKG, troponin in the setting of his recent chest discomfort. On admission, he reports persistent productive cough, improved SOB, chest discomfort at the base of his sternum, and diaphoresis. ROS + bloating, orthopnea, paroxysmal nocturnal dyspnea, LE swelling, nausea, vomiting, and tingling in his fingers. Admission Exam Per Admitting Provider General: Tired-appearing man who is otherwise alert, interactive, and in no acute distress. HEENT: Normocephalic, atraumatic. EOM intact. Good conjugate gaze. Nares patent. Moist mucosal membranes. Neck: Supple. No lymphadenopathy. Normal ROM. CV: Tachycardic. Normal S1 and S2. No murmurs gallops or rubs. Respiratory: Faint inspiratory, expiratory wheeze heard diffusely on auscultation. Abdomen: Soft, nondistended abdomen. No bruits heard on auscultation. No tenderness to deep palpation. Extremities: Capillary refill <2 sec. 2+ dp equal bilaterally. No pedal edema. Neuro: Alert and oriented x3. Skin: Clean, dry, and intact. No rashes, bruises, or erythema. Principal Diagnosis [id number] HFrEF nonischemic cardiomyopathy Discharge Exam General: 46-year old male who is alert, oriented, and appears in no acute distress. HEENT: NCAT. - Eyes - Sclera are white, anicteric, and without injection. - Mouth - MMM - Neck - supple, no appreciable JVD Cardiac: Normal rate and regular rhythm; S1 and S2 present with no murmurs, rubs, or gallops. Pulmonary: Good respiratory effort with symmetric expansion of the chest. No use of accessory muscles. Lungs were clear to auscultation bilaterally with no crackles or wheezes. Abdominal: Normoactive bowel sounds. Abdomen was soft, nondistended, and non- tender to palpation. Extremities: Upper and lower extremities are warm and well perfused. No peripheral edema in the lower extremities bilaterally Psych: Well-developed, well-nourished, appropriately dressed for occasion. Behavior is cooperative and appropriate. Affect is WNL. Insight is appropriate. Discharge Data Allergies Allergy/AdvReac Type Severity Reaction Status Date / Time Sulfa (Sulfonamide Allergy Intermediate Hives Verified 03/06/22 00:12 Antibiotics) Consultations 03/05/22 23:17 ED Decision to Admit Stat 03/06/22 00:41 Consult Cardiology Routine -- Excerpted from Dr. Anup Mcnulty on 03/07/22: "1. Acute heart failure with reduced EF: He appears hypervolemic. Received Lasix 40 mg IV this morning and yesterday. Had reasonable urine output. Labs suggest azotemia. Continue to monitor. Strict I's and O's.. Daily weights. Low-sodium diet, less than 2000 mg daily. During this hospital stay, he has been placed on Entresto and spironolactone. Will start metoprolol succinate 25 mg today. SGLT2 inhibitor in the near future. Heart failure program referral. 2. Cardiomyopathy: Nonischemic. Had cardiac catheterization at [facility] in 2020 with EF of 10 to 15% at that time. Other secondary work-up ordered. Medical therapy as above. ICD for primary prevention and no significant improvement at this time optimal medical therapy in 3 months. 3. Pulmonary hypertension: Likely at least due to CHF. Also likely to have COPD or emphysema given significant smoking history. RVSP likely to improve with diuresis. 4. Mitral and tricuspid regurgitation: Nonsevere mitral regurgitation with severe tricuspid regurgitation. These may improve with diuresis. Will monitor over time. 5. Chest pain: No CAD in June 2019. Continues to have intermittent chest discomfort. Troponin has been flat. May be due to CHF exacerbation. 6. Palpitations: Continue telemetry. Noted to have nonsustained ventricular tachycardia and nonsustained SVT. Beta-roque initiated. 7. Elevated troponin: Likely due to decompensated CHF. No CAD in 2019. 8. Ventricular tachycardia and SVT: Noted on telemetry. Unclear if he was symptomatic. Initiating beta-roque. 9. Disposition: Significantly ill gentleman with severely reduced LV systolic function. Cardiology will continue to follow along. Expect several day hospital stay. Patient care communicated with primary hospitalist, Dr. Leija. HF program referral. Highly complex medical issues." 03/06/22 11:24 HIM [Consult Health Information Management] Stat 03/06/22 11:44 [facility] CHF Program Referral Routine Hospital Course (1) Chest pain: 46-year-old man prior history of CT 2 years ago with associated EF reduction to 15%, current daily tobacco use, who presents with concern for persistent cough, and progressive chest discomfort, exertional dyspnea, paroxysmal nocturnal dyspnea x3 months, consistent with rlqlp-[id number] HFrEF. Acute on chronic HFrEF exacerbation -BNP 2200 and CXR- mild cardiomegaly w/o overt pulmonary edema -TTE: 15-20% EF, severe global hypokinesis, LVH, severe biatrial dilation -Cardiology consulted and followed while here -Initiated on GDMT while here: metoprolol succinate 25mg daily, Entresto 49/51mg, spironolactone 25mg daily, empagliflozin 10mg daily -Will need 3 months of optimal therapy with EF < 35% before consideration of ICD for primary prevention of SCD -Heart failure clinic referral has been placed -Recommend checking BMP in ~5 days post-discharge given initiation of new medications Nonischemic cardiomyopathy -On admission: Troponin 35 with downtrend to 32 + EKG with ST-changes of V5-V6 though no overt elevations/depressions --> suspect CP was sec to CHF, no e/o ACS -[place] records reviewed- catheterization 2019 does not suggest CAD -GDMT as above Hyperlipidemia -Total 163, LDL 111, HDL 25 -Rosuvastatin 40mg daily Type 2 diabetes -New diagnosis, A1C 6.7% -Lifestyle measures discussed while here. -Initiated on empagliflozin while here, as above, for HFrEF Agitation, ?Reported h/o BPD -Suspect secondary to anxiety/depression rather than bipolar disorder, although pt states he's been told he has BPD -Will re-initiate his Abilify 5 mg daily per home medications -Recommend outpatient diagnostic evaluation for BPD given unclear history Code:Full code FEN/GI:Low-salt heart-healthy diet, 1500 ml fluid restriction (2) Elevated troponin I level: (3) Abnormal EKG: Total Time Total Time Spent Total Time Spent (In Minutes): 30 Discharge Plan Discharge Items Patient Disposition: Home - Self-Care Reason For Visit: ACS RULE OUT Discharge Diagnosis: [id number] HFrEF nonischemic cardiomyopathy Activity: Per Instructions section Non-emergency contact: Primary Care Provider and Movie Critic Call non-emergency contact if: you have any medication questions, your symptoms worsen and your temperature is above 101.5 Follow-up/Referrals: Irene Sainz PA-C [Physician Electrotyper Apprentice] - 03/15/22 11:00 am (Congestive Heart Failure Program Appointment Information Early follow up is essential to managing your heart failure. An appointment has been scheduled for you with the [facility] Heart Failure Program within 7 days of discharge. Anticipate this visit to be 30-60 minutes long. Please expect a ui application developer phone call from one of our nurses approximately 48 hours from discharge. They will also be placing an order for lab work to be completed 1-2 days prior to your heart failure follow up appointment. Please be sure to have this done so we can go over the results when you come in. Office Location The cardiology office building is located in front of the hospital at [address] Bring the following with you to your follow-up doctor appointments: Please bring your daily weight log any discharge paperwork all of your medication bottles with you to this visit. ) PCP,NO [Primary Care Provider] - Diet: Heart Healthy and Low Sodium (2gm) Ambulatory Orders: Basic Metabolic Panel (Routine) Timeframe: 5 Days Location: Determined by Patient Ordered By: Cyril Matthews Addtl Attending Provider Instructions: You were seen in [facility] for evaluation of shortness of breath. Upon your arrival here, you underwent several tests to determine the cause of your symptoms. It was determined that the culprit of your symptoms was likely due to evaluation of your pre-existing heart failure. Thankfully, you demonstrated excellent response to fluid removal therapy. You were seen by cardiology here who helped initiate several medications that, over time, should preserve the function of your heart. It will be critical that you follow-up with them in the outpatient setting to determine next steps. A heart failure clinic referral at [facility] has been placed; you have an appointment on March 15 as outlined. During your visit, we also extensively discussed lifestyle modifications to help preserve your heart function and improve your overall health. Please continue to consume less than 2000 mg daily of salt; monitoring nutrition facts on the back of the box of foods can be helpful in this regard. It will also be critica l that you reduce tobacco use, as over time this can damage blood vessels and heart function, which can significantly worsen heart failure. Please note the following medication changes/additions while here: Initiate furosemide (Lasix) 40 mg daily Initiate empagliflozin (Jardiance) 10 mg daily Initiate Entresto , once daily Initiate metoprolol succinate (Toprol) 25 mg daily Increase rosuvastatin (Crestor) to 40 mg daily Restart Abilify 5 mg nightly. Please follow-up with your primary care physician within 1 week to review this visit. At that time, will be critical to review your medications. In the interim, if you experience any worsening chest pain, palpitations, shortness of breath, significantly worsening shortness of breath with exertion, or other worrisome symptoms, please report to the ER immediately for evaluation. Please check your labs within 5 days to ensure there are no issues with your medications! It was a pleasure for caring for you while here and we wish you all the best in your recovery. ---- Call 911 and go to the Emergency Room if: * You have tightness or pain in your chest that does not go away with rest or Nitroglycerin * You are very short of breath even with rest Call your doctor if any of the following symptoms or problems start or get worse: * Shortness of breath or difficulty breathing * Wake up at night short of breath * Chest pain * Cough * Swelling of your hands, fee, or legs * More fatigued or tired with your normal activity * Palpitations - sudden fast heart beats WEIGHT * Weigh yourself every morning after using the bathroom. * Use the same scale. * Wear the same amount of clothing. * Write your weight down on your chart. * Call your doctor if you gain more than 2-3 pounds in 1-2 days. MEDICATIONS * Use this discharge instruction sheet for instructions. * Take your medications at the time your doctor ordered. * Do not skip a dose of your medicines. * If you miss a dose of medicine, take as soon as possible, but DO NOT DOUBLE A DOSE. * Read your medicine information when you get home. * Know all of the side effects of your medicine. * Call your doctor's office if you have any side effects. * Be sure all of your doctors know what medicine and herbs you take (including cold, flu, and herbal medicine). * Pain Medicine: If you do not get relief from your pain, please call your doctor for help. Take the following with you to your follow-up doctor appointments: * Weight Chart * Medication List * List of questions Do not drink excessive alcohol, beer or wine. Pending Studies at Discharge: No Stand-Alone Forms: My [facility] [employer], Smoking Cessation Medications and DC Order Prescriptions: New furosemide 40 mg Tablet 40 mg PO QAM 30 Days Qty: 30 1RF spironolactone 25 mg Tablet 25 mg PO QAM 30 Days Qty: 30 1RF metoprolol succinate 25 mg Tablet Extended Release 24 Hr 25 mg PO QAM Qty: 30 1RF aripiprazole [Abilify] 5 mg Tablet 5 mg PO QAM 30 Days Qty: 30 0RF rosuvastatin [Crestor] 20 mg Tablet 40 mg PO QAM Qty: 30 1RF Entresto 49-51 mg Tablet 1 tab PO BID 30 Days Qty: 60 1RF Continued albuterol sulfate 90 mcg/actuation HFA aerosol inhaler 2 puff INHALATION DIRECTED PRN (Reason: Shortness Of Breath) Discharge Orders: Discharge Order- CHF (Routine); Ordered 03/08/22 Ordered By: Cyril Villarreal/Other Patient Handouts: High Blood Sugar (Hyperglycemia), Managing Type 2 Diabetes, Heart Failure Dc Admission Data Admit Date/Time: 03/05/22 23:57 Attending Provider: Cyril Leija Admit Provider: Ha Nunez Primary Care Provider: PCP,NO Other Providers: Noel Salas ; Napoleon Cooney ; Eran Amezquita ; Randolph Beckwith ; Aren Fish ; Crispin Mills ; Teofilo Hines Jr ; Rich Mcnulty ; Latasha Hernandez ; Jessica Diaz ; Ron Sotomayro ; Cheko Rouse ; Maikol Rhodes ; Irene Sainz ; Oksana Saldana ; Wojciech Martin ; Vern Johnson ; Zechariah Marks ; Aren Lloyd V. Other Interventions: Discharge Summary Assessment (RN) Last Done: 03/08/22 10:37 Supervising Physician Co-Signing Physician Notes I personally examined the patient and verified all rachel points of history and exam, discussed case, and agree with decision making with Dr Matthews Feels up to going home. No current new complaints. Vitals noted, in general he is awake and alert pleasant no distress. HEENT normocephalic atraumatic mucous membranes moist. Breathing unlabored no accessory muscle use good effort. Skin no rashes pallor or icterus. No focal neurodeficits. Acute on chronic HFrEF with severe ischemic cardiomyopathysafe for home, aggressive med management/afterload reduction, close PCP and cardiology follow- up. Encourage therapeutic lifestyle as well. Resident Activity Tracking Resident Involvement: Resident Care Provided Care Provided: Adult Hospital Medicine
[2022-03-08 08:37] LABS: Basophils # (auto) 0.02 K/uL (0-0.2); Basophils % (auto) 0.3 %; Eosinophils # (auto) 0.09 K/uL (0-0.50); Eosinophils % (auto) 1.5 %; Hemoglobin 15.7 g/dl (14.0-18.0); Immature Granulocytes # (auto) 0.02 K/uL (0.00-0.02); Immature Granulocytes % (auto) 0.3 %; Lymphocytes # (auto) 2.02 K/uL (1.2-3.4); Lymphocytes % (auto) 32.8 %; Mean Corpuscular Hemoglobin 28.4 pg (25.0-34.0); Mean Corpuscular Hgb Conc 33.4 g/dL (32.0-36.0); Mean Platelet Volume 9.5 fL (9.4-12.4); Monocytes # (auto) 0.64 K/uL (0.24-0.82); Monocytes % (auto) 10.4 %; Neutrophils # (auto) 3.36 K/uL (1.4-6.5); Neutrophils % (auto) 54.7 %; Platelet Count 379 K/uL (130-400); RDW Coefficient of Variation 15.4 % (11.5-14.5); RDW Standard Deviation 47.8 fL (36.4-46.3); Red Blood Count 5.53 M/uL (4.63-6.08); White Blood Count 6.15 K/ul (4.8-10.8)
[2022-03-08] MEDS ORDERED: EMPAGLIFLOZIN 10 MG TAB PO SCH (09:00)
[2022-03-08] MEDS ORDERED: METOPROLOL TARTRATE 25 MG TAB PO SCH (09:00)
[2022-03-08] MEDS ORDERED: FUROSEMIDE 40 MG TAB PO SCH (09:00)
[2022-03-08] MEDS ORDERED: ROSUVASTATIN CALCIUM 20 MG TAB PO SCH (09:00)
[2022-03-08] MEDS: HEPARIN SOD 5,000 UNIT/0.5 ML VIAL SQ SCH (09:51)
[2022-03-08] MEDS: METOPROLOL SUCC 25MG EXT REL TAB PO SCH (09:52)
[2022-03-08] MEDS: ARIPiprazole 5 MG TAB PO SCH (09:52)
[2022-03-08] MEDS: VALSARTAN/SACUBITRIL 51/49 MG TAB PO SCH (09:52)
[2022-03-08] MEDS: ASPIRIN 81 MG ECTAB PO SCH (09:53)
[2022-03-08] MEDS: SPIRONOLACTONE 25 MG TAB PO SCH (09:54)
[2022-03-08] MEDS: NICOTINE 21 MG/24 HR TDSY TD SCH (09:59)
[2022-03-08 10:20] LABS: Albumin Globulin Ratio 1.3 (0.9-2); Albumin Level 3.4 gm/dl (3.4-5.0); BUN Creatinine Ratio 19.8 (10-20); Bilirubin,Total 0.8 mg/dl (0.2-1.0); Calcium 8.4 mg/dl (8.5-10.1); Creatinine Clr Calc Pharmacy 86.6 ml/min; Est GFR (African American) 91.2 ml/min; Est GFR (Non-African American) 78.7 ml/min; Globulin 2.6 gm/dl (2.5-4.0); Magnesium 1.9 mg/dl (1.7-2.4); Phosphorus 3.8 mg/dl (2.5-4.9); Potassium 3.6 mmol/L (3.5-5.1)
--- NOTE | 2022-03-08 10:28 | Cardiology Progress Note ---
Date of Service March 08, 2022 Assessment & Plan (1) Acute HFrEF (heart failure with reduced ejection fraction): (2) Cardiomyopathy: (3) Chest pain: (4) Palpitations: (5) Elevated troponin I level: (6) Mitral regurgitation: (7) Tricuspid regurgitation: (8) Pulmonary hypertension: (9) Tobacco abuse: (10) Ventricular tachycardia: (11) Paroxysmal SVT (supraventricular tachycardia): Plan ASSESSMENT/PLAN: 1. Acute Heart Failure with reduced EF: -- He appears euvolemic at this time. Cumulative I&O's - 1485 mL. Monitor daily weights. 2 gram low-sodium diet. -- He is now on a good regimen for his HFrEF/Cardiomyopathy including Entresto 49-51 mg b.i.d, Toprol XL 25 mg daily, Spironolactone 25 mg daily, Jardiance 10 mg daily, and Lasix 40 mg daily. -- Heart failure program referral. 2. Cardiomyopathy: --Nonischemic. -- Cardiac Catheterization at [facility] in 2019 with LVEF of 10% to 15% at that time. -- Other secondary work-up ordered. -- Medical therapy as above. -- AICD for primary prevention if no significant improvement after being on opt imal medical therapy x 3 months. 3. Pulmonary Hypertension: -- Likely due to CHF. -- Also likely to have COPD or emphysema given significant smoking history. -- RVSP likely to improve with diuresis. 4. Mitral and Tricuspid Regurgitation: -- Nonsevere mitral regurgitation. -- Severe tricuspid regurgitation. -- These may improve with diuresis. -- Continue to monitor over time. 5. Chest Pain: -- No CAD in June 2019. -- Continues to have intermittent chest discomfort. -- Troponin trend has been flat. -- Possibly due to this CHF exacerbation. 6. Palpitations: -- Noted to have nonsustained ventricular tachycardia and nonsustained SVT - none in the past 24 hours. -- Continue beta-roque. 7. Elevated Troponin I: -- Most likely due to decompensated CHF. -- No CAD on Cardiac Catheterization in 2019. 8. Ventricular Tachycardia and SVT: -- Unclear if he was symptomatic with these arrhythmias. -- Continue beta-roque. 9. Disposition: -- Significantly ill patient with severely reduced LV systolic function. -- Cardiology will continue to follow along in both inpatient and outpatient settings. -- [facility] [place] [facility] [place]. Admission and Anticipated Discharge Date Admission Date: March 05, 2022 Subjective Mr. Weeks was admitted on 03/05/22 with Acute on Chronic HFrEF and a Non-Ischemic Cardiomyopathy who presented to our ER for evaluation of chest discomfort. Specifically, he reported a persistent cough, worsening shortness of breath with exertion, and orthopnea x 3 months. As his symptoms began with cough, he thought it was a cold. After multiple treatments for presumed URI x several months, PCP recommended he go to the hospital for cardiac evaluation. He had an Echocardiogram at [facility] showing a severely reduced EF compared to his prior baseline. He was subsequently transferred to [place], where he reports he was discharged for outpatient follow-up. 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 Therefore, he presented to [facility] to be evaluated for his symptoms. In the ER, his vital signs were notable for tachycardia in the 100s, and a blood pressure of 147/104. Labs were notable for PT 4.5, INR of 1.2, and an elevated high-sensitivity troponin of 35.1 pg/mL (subsequent 2-hr troponin 34.2 pg/mL). EKG showed nonspecific ST depression in inferolateral leads. CXR demonstrated mild cardiomegaly. He received Aspirin 324 mg x 1, and was admitted for evaluation of his abnormal EKG and troponin in the setting of his recent chest discomfort and reduced LV systolic function. On admission, he had a persistent productive cough, improved but mild ongoing SOB, and chest discomfort at the base of his sternum with associated diaphoresis. ROS was positive for abdominal bloating, orthopnea, paroxysmal nocturnal dyspnea, leg swelling, nausea, vomiting, and tingling in his fingers. ECHOCARDIOGRAM 03/06/22: -- Moderately dilated LV with severe global hypokinesis. -- LVEF 15% to 20%. -- Moderate concentric LVH with grade II LV diastolic dysfunction. -- Moderately dilated RV with moderately reduced RV systolic function. -- Severe biatrial dilation. -- Mild AI. -- Mild MR. -- Severe TR. -- Moderate pulmonary hypertension, RVSP 58 mmHg. Patient is feeling significantly better at this point -- his SOB, edema, abdominal bloating, KINGSLEY, orthopnea, and PND have all resolved. he slept very well last night, better than he has in months. He denies further chest pain or diaphoresis. He is on a good regimen for his HFrEF/Cardiomyopathy including Entresto 49-51 mg b.i.d, Toprol XL 25 mg daily, Spironolactone 25 mg daily, Jardiance 10 mg daily, and Lasix 40 mg daily. He is also on Crestor 40 mg daily. he is tolerating these medications without adverse side effects. Review of Systems Review of Systems: 10 point ROS was completed and negative with the exception of what is mentioned in the HPI. Physical Exam Physical Exam: GENERAL: Patient in no acute distress. HEENT: Head is atraumatic, normocephalic. EOM's intact. Facies symmetric. No perioral cyanosis. NECK: No JVD. JVP is not elevated. Carotid upstrokes are + 2 bilaterally without obvious bruits. CHEST/LUNGS: Diminished breath sounds throughout but otherwise clear. No wheezes, rales, or crackles. CVS: S1 and S2 are regular with a grade 2/6 apical systolic murmur. No diastolic murmurs. No gallops or rubs. PMI is nondisplaced. No lifts, heaves, or thrills. No abdominal aortic or renal bruits. ABDOMINAL EXAM: Bowel sounds are present. No masses, organomegaly, or tenderness. EXTREMITIES: No clubbing or cyanosis. No edema. Intact posterior tibial and radial pulses bilaterally. NEUROLOGIC EXAM: Patient is awake, alert, and oriented. Pleasant and cooperative. Answers questions appropriately. Speech is clear. Radiology Therapist: -- Normal sinus rhythm at normal rates. Results & Data ([facility]) Vital Signs (Past 12 Hours) Vital Signs Temp Pulse Pulse Resp BP Pulse Ox O2 Del Method 03/08/22 08:04 36.4 C L 67 18 125/82 95 Room Air 03/08/22 07:22 79 03/07/22 23:21 36.4 C L 66 18 119/77 97 Room Air 03/07/22 23:11 70 Laboratory Results Laboratory Results - last 24 hr 03/07/22 03/07/22 03/07/22 09:45 10:49 10:49 WBC RBC Hgb Hct MCV MCH MCHC RDW Std Deviation RDW Coeff of Nicolás Plt Count MPV Immature Gran % (Auto) Neut % (Auto) Lymph % (Auto) Barren % (Auto) Eos % (Auto) Baso % (Auto) Neut # (Auto) Lymph # (Auto) Barren # (Auto) Eos # (Auto) Baso # (Auto) Immature Gran # (Auto) Sodium Potassium Chloride Carbon Dioxide Anion Gap BUN Creatinine Est Cr Clr Drug Dosing Est GFR ( Amer) Est GFR (Non-Af Amer) BUN/Creatinine Ratio Glucose POC Glucose Calcium Phosphorus Magnesium Transferrin 375 H Ferritin 31.7 Total Bilirubin AST ALT Alkaline Phosphatase Troponin I High Sens 28.7 H Total Protein Total Protein (PEP) Pending Albumin Albumin (PEP) Pending Globulin Albumin/Globulin Ratio Tdshs-5-Hfvnkpqzg Pending Qlqfx-8-Sqwcdayzz Pending Qkpq-3-Tdbxeezc Pending Oegp-7-Uplzbvql Pending Gamma Globulins Pending Monoclonal Peak 3 Pending Ser Monoclonl Protein Pending Ser Monoclonal Prot 2 Pending PEP Interpretation Pending Angiotensin Convert Enz Pending U Random Total Protein Ur Creatinine mg/dL Protein/Creatinin Ratio Urine Albumin (%) U Hdtyi-1-Krdofpui (%) U Sijfk-5-Qvknsslh (%) U Beta Globulin (%) U Gamma Globulin (%) U Abnormal Prot Band 1 U Abnormal Prot Band 2 U Abnormal Prot Band 3 Urine PEP Interpret 03/07/22 03/07/22 03/08/22 12:00 13:50 08:12 WBC 6.15 RBC 5.53 Hgb 15.7 Hct 47.0 MCV 85.0 MCH 28.4 MCHC 33.4 RDW Std Deviation 47.8 H RDW Coeff of Nicolás 15.4 H Plt Count 379 MPV 9.5 Immature Gran % (Auto) 0.3 Neut % (Auto) 54.7 Lymph % (Auto) 32.8 Barren % (Auto) 10.4 Eos % (Auto) 1.5 Baso % (Auto) 0.3 Neut # (Auto) 3.36 Lymph # (Auto) 2.02 Barren # (Auto) 0.64 Eos # (Auto) 0.09 Baso # (Auto) 0.02 Immature Gran # (Auto) 0.02 Sodium Potassium Chloride Carbon Dioxide Anion Gap BUN Creatinine Est Cr Clr Drug Dosing Est GFR ( Amer) Est GFR (Non-Af Amer) BUN/Creatinine Ratio Glucose POC Glucose 106 H Calcium Phosphorus Magnesium Transferrin Ferritin Total Bilirubin AST ALT Alkaline Phosphatase Troponin I High Sens Total Protein Total Protein (PEP) Albumin Albumin (PEP) Globulin Albumin/Globulin Ratio Hrkfg-4-Lptaasypt Aiszi-3-Vqnuqghyb Rgnk-4-Smqxmrnw Wcvg-1-Afkybpge Gamma Globulins Monoclonal Peak 3 Ser Monoclonl Protein Ser Monoclonal Prot 2 PEP Interpretation Angiotensin Convert Enz U Random Total Protein Pending Ur Creatinine mg/dL Pending Protein/Creatinin Ratio Pending Urine Albumin (%) Pending U Pynsb-1-Jxwbbhnw (%) Pending U Rnrgx-8-Nkliiahp (%) Pending U Beta Globulin (%) Pending U Gamma Globulin (%) Pending U Abnormal Prot Band 1 Pending U Abnormal Prot Band 2 Pending U Abnormal Prot Band 3 Pending Urine PEP Interpret Pending 03/08/22 08:12 WBC RBC Hgb Hct MCV MCH MCHC RDW Std Deviation RDW Coeff of Nicolás Plt Count MPV Immature Gran % (Auto) Neut % (Auto) Lymph % (Auto) Barren % (Auto) Eos % (Auto) Baso % (Auto) Neut # (Auto) Lymph # (Auto) Barren # (Auto) Eos # (Auto) Baso # (Auto) Immature Gran # (Auto) Sodium 135 L Potassium 3.6 Chloride 97 L Carbon Dioxide 34 H Anion Gap 4 BUN 22 Creatinine 1.11 Est Cr Clr Drug Dosing 86.6 Est GFR ( Amer) 91.2 Est GFR (Non-Af Amer) 78.7 BUN/Creatinine Ratio 19.8 Glucose 97 POC Glucose Calcium 8.4 L Phosphorus 3.8 Magnesium 1.9 Transferrin Ferritin Total Bilirubin 0.8 D AST 23 ALT 19 Alkaline Phosphatase 73 Troponin I High Sens Total Protein 6.0 Total Protein (PEP) Albumin 3.4 Albumin (PEP) Globulin 2.6 Albumin/Globulin Ratio 1.3 Bnxvn-0-Offhbrbkh Zvngp-7-Rzwbvmtep Eroi-5-Dnzquxsj Hgsr-0-Zzrlfvmo Gamma Globulins Monoclonal Peak 3 Ser Monoclonl Protein Ser Monoclonal Prot 2 PEP Interpretation Angiotensin Convert Enz U Random Total Protein Ur Creatinine mg/dL Protein/Creatinin Ratio Urine Albumin (%) U Bhmfd-5-Yoidtaso (%) U Qnpxc-1-Btyxpsdc (%) U Beta Globulin (%) U Gamma Globulin (%) U Abnormal Prot Band 1 U Abnormal Prot Band 2 U Abnormal Prot Band 3 Urine PEP Interpret Medications Administered Medications albuterol sulfate 90 mcg/actuation aerosol inhaler 2 puff inhalation DIRECTED PRN Shortness Of Breath 03/06/22 [History Confirmed 03/06/22] aripiprazole 5 mg tablet (Abilify) 5 mg PO QAM 30 days #30 tabs 03/08/22 [Rx] furosemide 40 mg tablet 40 mg PO QAM 30 days #30 tabs 03/08/22 [Rx] metoprolol succinate 25 mg tablet,extended release 24 hr 25 mg PO QAM #30 tabs 03/08/22 [Rx] rosuvastatin 20 mg tablet (Crestor) 40 mg PO QAM #30 tabs 03/08/22 [Rx] sacubitril 49 mg-valsartan 51 mg tablet (Entresto) 1 tab PO BID 30 days #60 tabs 03/08/22 [Rx] spironolactone 25 mg tablet 25 mg PO QAM 30 days #30 tabs 03/08/22 [Rx] Home Medications Acetaminophen (Acetaminophen 500 Mg Tab) 1,000 mg PO Q8H [facility] Stop: 04/06/22 03:59 Last Admin: 03/08/22 04:41 Dose: 1,000 mg Albuterol (Albuterol Hfa 8 Gm Inhaler) 2 puffs INH Q4H PRN PRN Reason: dyspnea Stop: 04/05/22 10:57 Aripiprazole (Aripiprazole 5 Mg Tab) 5 mg PO QAM [facility] Stop: 04/06/22 11:29 Last Admin: 03/08/22 09:52 Dose: 5 mg Aspirin (Aspirin 81 Mg Ectab) 81 mg PO QAM [facility] Stop: 04/05/22 08:59 Last Admin: 03/08/22 09:53 Dose: 81 mg Empagliflozin (Empagliflozin 10 Mg Tab) 10 mg PO DAILY [facility] Stop: 04/07/22 08:59 Last Admin: 03/08/22 09:51 Dose: 10 mg Furosemide (Furosemide 40 Mg Tab) 40 mg PO QAM [facility] Stop: 04/07/22 08:59 Last Admin: 03/08/22 09:52 Dose: 40 mg Heparin Sodium (Porcine) (Heparin Sod 5,000 Unit/0.5 Ml Vial) 5,000 units SQ Q12 [facility] Stop: 04/05/22 08:59 Last Admin: 03/08/22 09:51 Dose: 5,000 units Melatonin (Melatonin 3 Mg Tab) 3 mg PO HS PRN PRN Reason: Sleep Stop: 04/06/22 20:44 Last Admin: 03/07/22 21:13 Dose: 3 mg Metoprolol Succinate (Metoprolol Succ 25mg Ext Rel Tab) [facility] Stop: 04/06/22 10:59 Last Admin: 03/08/22 09:52 Dose: 25 mg Miscellaneous (Remove Nicoderm Patch) 1 each N/A DAILY@0859 [facility] Stop: 04/05/22 08:58 Last Admin: 03/08/22 09:51 Dose: 1 each Morphine Sulfate (Morphine Sulfate 2 Mg/Ml Carp) 2 mg IV Q2H PRN PRN Reason: Pain Stop: 03/20/22 22:03 Last Admin: 03/07/22 21:12 Dose: 2 mg Nicotine (Nicotine 21 Mg/24 Hr Tdsy) [address] [facility] Stop: 04/05/22 08:59 Last Admin: 03/08/22 09:59 Dose: 21 mg Nitroglycerin (Nitroglycerin Sl 0.4 Mg/Tab Tab) 0.4 mg SL UD PRN PRN Reason: Chest Pain Stop: 04/05/22 00:40 Last Admin: 03/07/22 07:54 Dose: 0.4 mg Ondansetron HCl (Ondansetron Inj 2 Mg/Ml 2 Ml Vial) 4 mg IV Q6H PRN PRN Reason: Nausea Stop: 04/05/22 00:40 Last Admin: 03/07/22 07:14 Dose: 4 mg Polyethylene Glycol (Polyethylene (Miralax) 17 Gm Pack) 17 gm PO DAILY PRN PRN Reason: Constipation Stop: 04/05/22 00:40 Rosuvastatin Calcium (Rosuvastatin Calcium 20 Mg Tab) [address] [facility] Stop: 04/07/22 08:59 Last Admin: 03/08/22 09:53 Dose: 40 mg Sacubitril/Valsartan (Valsartan/Sacubitril 51/49 Mg Tab) 1 tab PO BID [facility] Stop: 04/06/22 20:59 Last Admin: 03/08/22 09:52 Dose: 1 tab Spironolactone (Spironolactone 25 Mg Tab) [address] [facility] Stop: 04/05/22 11:44 Last Admin: 01/20/23 09:54 Dose: 25 mg PG Care Time/CCT Total # of Minutes Spent Total Time Spent with Patient: Total time spent is greater than 50% in coordination of care (as documented) at patient's floor/unit and/or counseling patient:24 [place] [address] SUB INP/OBS CARE 3/50MIN Patient Type Established History Detailed Exam Detailed Medical Decision Making High Complexity Diagnoses Acute HFrEF (heart failure with reduced ejection fraction) I50.21 Cardiomyopathy I42.9 Chest pain R07.9 Chest pain type: unspecified Palpitations R00.2 Elevated troponin I level R77.8 Mitral regurgitation I34.0 Tricuspid regurgitation I07.1 Pulmonary hypertension I27.20 Tobacco abuse Z72.0 Ventricular tachycardia I47.20 Paroxysmal SVT (supraventricular tachycardia) I47.1 Time Spent (min) 53 (1) Chest pain Chest pain type: unspecified Qualified Code(s): R07.9 - Chest pain, unspecified
--- NOTE | 2022-03-08 10:49 | Electrocardiogram Report ---
Test Reason : Blood Pressure : / mmHG Vent. Rate : 077 BPM Atrial Rate : 077 BPM P-R Int : 182 ms QRS Dur : 126 ms QT Int : 466 ms P-R-T Axes : 064 -19 073 degrees QTc Int : 527 ms Normal sinus rhythm Possible Left atrial enlargement Non-specific intra-ventricular conduction block Nonspecific T wave abnormality Abnormal ECG When compared with ECG of 05-MAR-2022 19:03, No significant change was found Confirmed by Rich Mcnulty ([id number] on 03/08/2022 10:49:16 AM Referred By: REFERRED SELF Confirmed By:Rich Mcnulty
--- NOTE | 2022-03-08 17:49 | Billing Data ---
Date of Service March 08, 2022 Coding Level of Care Code HOSP INP/OBS DISCH 30 MIN/LESS
[2022-03-12 10:24] LABS: Albumin 3.5 g/dL (3.8-4.8); Alpha 1 Globulin 0.3 g/dL (0.2-0.3); Alpha 2 Globulin 0.7 g/dL (0.5-0.9); Angiotensin Converting Enzyme 35 U/L (9-67); Beta-1-Globulin 0.5 g/dL (0.4-0.6); Beta-2-Globulin 0.4 g/dL (0.2-0.5); Monoclonal Protein Band 1 DNR g/dL (NONE DETECTED); Monoclonal Protein Band 2 DNR g/dL (NONE DETECTED); Monoclonal Protein Band 3 DNR g/dL (NONE DETECTED); Total Protein 6.4 g/dL (6.1-8.1)
[2022-03-13 06:52] LABS: Creatinine Ur 27 mg/dL (20-320); Protein, Urine Random 46 mg/dL (5-25); Ur Protein/Creat Ratio mg/g 1704 mg/g creat (25-148); Urine Abnormal Protein Band 1 DNR mg/dL (NONE DETECTED); Urine Abnormal Protein Band 2 DNR mg/dL (NONE DETECTED); Urine Abnormal Protein Band 3 DNR mg/dL (NONE DETECTED); Urine Protein/Creatinine Ratio 1.704 (0.025-0.148)
== END 2022-03-08 13:04 | disposition home or self-care (01) | DRG 291 ==
LOC: ED 18:53 → SUATTDRO 23:57 → EDINP 23:57 → 2N 03-06 00:39
DX: R45.1 Restlessness and agitation; I34.0 Nonrheumatic mitral (valve) insufficiency; I25.10 Atherosclerotic heart disease of native coronary artery without angina pectoris; E11.9 Type 2 diabetes mellitus without complications; I27.20 Pulmonary hypertension, unspecified; E78.5 Hyperlipidemia, unspecified; I25.2 Old myocardial infarction; I50.23 Acute on chronic systolic (congestive) heart failure; F17.210 Nicotine dependence, cigarettes, uncomplicated; I24.8 Other forms of acute ischemic heart disease; Z88.2 Allergy status to sulfonamides; I11.0 Hypertensive heart disease with heart failure; I07.1 Rheumatic tricuspid insufficiency; I25.5 Ischemic cardiomyopathy

== ENCOUNTER 2022-10-02 23:28 | Inpatient (IN) ==
--- NOTE | 2022-10-02 23:59 | Emergency Department Note ---
Impression & Plan Chest pain, Dyspnea, Bilateral edema of lower extremity, Noncompliance ED Provider Note ED Provider Note NAME: JUDY READ AGE:46 SEX: Male : 1975 ARRIVES VIA: Private vehicle INFORMANT: Patient ED PROVIDER(s): Annabel Rabago DO CHIEF COMPLAINT: Shortness of breath, chest pain HPI: This is a 46-year-old male presents emergency department complaining of worsening shortness of breath over the last week or so, chest discomfort, and increased leg swelling. Patient states he does have cardiac history including a prior heart attack and is usually seen at the heart failure clinic. He states he has not taken his medication in over a month because he could not pick it up due to social and transportation problems. He states he has still been smoking. He denies fevers or chills. He denies any hemoptysis. He states his sputum has been more frequent and slightly thicker but is white. He is concerned that he feels he is "puffy" everywhere. PAST MEDICAL HISTORY:See Below PAST SURGICAL HISTORY:See Below FAMILY HISTORY:See Below SOCIAL HISTORY:See Below HOME MEDICATIONS:See Below ALLERGIES:See Below VITALS:See Below PHYSICAL EXAMINATION: GENERAL: alert, well appearing, well nourished, no distress, non-toxic EYE EXAM: normal conjunctiva, PERRL and EOM's grossly intact OROPHARYNX: no exudate, no erythema, lips, buccal mucosa, and tongue normal and mucous membranes are moist NECK: supple, no nuchal rigidity, no adenopathy, non-tender LUNGS: Clear to auscultation. Normal chest wall mechanics, no w/r/r HEART: no murmurs, S1 normal and S2 normal ABDOMEN: abdomen soft, non-tender, normo-active bowel sounds, no masses, no rebound or guarding. BACK: Back is symmetrical on inspection and there is no deformity, no midline tenderness, no CVA tenderness. SKIN: no rashes, petechiae, orbruising UPPER EXTREMITIES: upper extremities are grossly normal. FROM, nml pulses b/l. LOWER EXTREMITIES: No pitting edema. FROM, nml pulses b/l. NEURO EXAM: Normal sensorium, cranial nerves II-XII grossly intact, normal speech, no facial droop,nogross weakness of arms, no gross weakness of legs. Gross sensation intact. No ataxia. Vital Signs: reviewed and remarkable Differential Diagnosis: ACS, CHF, PE, pneumonia, pleural effusion, pericarditis, noncompliance, GERD, anxiety, as well as others were considered MEDICAL DECISION MAKING: This is a 46-year-old male presents emergency department due to concern for increased chest pain, leg swelling, and shortness of breath that have been worsening over the last 1 to 2 weeks. Patient admits to noncompliance with his current regimen despite his significant cardiac history. Patient was afebrile and vital signs stable. Labs drawn and sent, IV established, EKG and chest x- ray performed at bedside interpreted by me and patient monitored on telemetry. After review of recent cardiology note, patient was started on Lasix IV 40 mg and given a DuoNeb additionally due to his ongoing tobacco abuse and underlying COPD. Patient did report some improvement. Case discussed with Health systemist team for additional evaluation and management. Consultation(s): 0202: Discussed with Dr. Nunez and Dr. Salas, Health systemist admitting team. ER Treatment Provided: See below Diagnostics Interpreted By Me: -ECG: Normal sinus at 84, normal axis, prolonged QRS and QTc, nonspecific ST/T wave changes; no acute change compared to March 07, 2022 -Cardiac Monitoring: An order was placed for continuous cardiac monitoring. The monitor shows a rate of 80 with normal sinus rhythm. -Laboratory studies: As stated above and show below. -Imaging studies: X-ray Chest: A single view study of the chest was reviewed and was negative for focal infiltrate, effusion, pulmonary edema, or wide mediastinum. Cardiomegaly noted, similar to the prior. Triage Nursing Note Reviewed Prior/Outside Records Reviewed -prior CHF clinic note reviewed Past Med/Surg History Medical History Cardiomyopathy Chest pain Elevated troponin I level High cholesterol History of heart attack Hypertension Tobacco abuse Ventricular tachycardia Family History (Updated 10/03/22 @ 07:17 by Irene Hutchins RN) Father Myocardial infarction Mother Stroke Brother Cirrhosis Sister Hypertension Social History Smoking Status: Former smoker Tobacco Type: Cigarettes Cigarettes Per Day: 1/2 pack; Second Hand Exposure: Yes; Do You Dip or Chew Tobacco: No; Tobacco Cessation Education Requested by Patient: No Hx Alcohol Use: No Hx Substance Use: No Preferred Language: Hungarian Communication Ability: Effective Quality Assurance Lab Technician Required: No Beliefs That Will Affect Care: None Current Living Situation: Family Current Living Situation Comment: Son; Sister and brother in law Other Information That Helps Us Care for You: No Feels Safe at Home: Yes Assistive Devices: Denture - Upper and Denture - Lower Allergies Allergies Allergy/AdvReac Type Severity Reaction Status Date / Time Sulfa (Sulfonamide Allergy Intermediate Hives Verified 10/03/22 02:08 Antibiotics) Home Meds Home Medications Medication Instructions Recorded Confirmed albuterol sulfate 90 mcg/actuation 2 puff inhalation DIRECTED PRN 03/06/22 03/22/22 aerosol inhaler Shortness Of Breath Previous Rx's Medication Instructions Recorded furosemide 40 mg tablet 40 mg PO QAM 30 days #30 tabs 03/08/22 rosuvastatin 20 mg tablet (Crestor) 40 mg PO QAM #30 tabs 03/08/22 sacubitril 49 mg-valsartan 51 mg 1 tab PO BID 30 days #60 tabs 03/08/22 tablet (Entresto) spironolactone 25 mg tablet 25 mg PO QAM 30 days #30 tabs 03/08/22 metoprolol succinate 50 mg 50 mg PO QAM #30 tabs 03/22/22 tablet,extended release 24 hr Results & Data (ED) Vital Signs Vital Signs - 24 hr 10/02/22 23:41 10/02/22 23:39 10/02/22 23:39 Pulse Rate 85 84 Pulse Strength Normal Respiratory Rate 20 Respiratory Effort / Characteristics Non-Labored Non-Labored Spontaneous Respiratory Depth Deep Normal Respiratory Pattern Regular Blood Pressure 141/99 H Blood Pressure Mean 113 Blood Pressure Position Lying Pulse Oximetry 97 Oxygen Delivery Method Room Air Room Air Sepsis Recent Fever Within 48 Hours No Sepsis New/Unexplained Change in Mental Status No Sepsis Action Taken by Nursing No Action Required 10/02/22 23:39 10/02/22 23:39 10/03/22 00:00 Pulse Rate 87 Pulse Strength Respiratory Rate 21 Respiratory Effort / Characteristics Respiratory Depth Respiratory Pattern Blood Pressure 133/101 H Blood Pressure Mean 111 Blood Pressure Position Pulse Oximetry 95 Oxygen Delivery Method Room Air Room Air Room Air Sepsis Recent Fever Within 48 Hours Sepsis New/Unexplained Change in Mental Status Sepsis Action Taken by Nursing 10/03/22 01:00 10/03/22 02:00 Pulse Rate 93 H 86 Pulse Strength Respiratory Rate 24 20 Respiratory Effort / Characteristics Respiratory Depth Respiratory Pattern Blood Pressure 147/101 H 132/102 H Blood Pressure Mean 116 112 Blood Pressure Position Pulse Oximetry 97 98 Oxygen Delivery Method Room Air Room Air Sepsis Recent Fever Within 48 Hours Sepsis New/Unexplained Change in Mental Status Sepsis Action Taken by Nursing Laboratory Data 10/02/22 23:40 10/02/22 23:40 Lab Results 10/02/22 10/02/22 10/02/22 Range/Units 23:40 23:40 23:40 WBC 8.23 (4.8-10.8) K/ul RBC 5.34 (4.70-6.10) M/uL Hgb 15.7 (14.0-18.0) g/dl Hct 47.6 (42.0-52.0) % MCV 89.1 (80.0-100.0) fL MCH 29.4 (25.0-34.0) pg MCHC 33.0 (32.0-36.0) g/dL RDW Std Deviation 45.7 (36.4-46.3) fL RDW Coeff of Nicolás 14.3 (11.5-14.5) % Plt Count 341 (130-400) K/uL MPV 9.9 (9.4-12.4) fL Immature Gran % (Auto) 0.2 % Neut % (Auto) 55.9 % Lymph % (Auto) 31.0 % [place] % (Auto) 10.8 % Eos % (Auto) 1.2 % Baso % (Auto) 0.9 % Neut # (Auto) 4.60 (1.40-6.50) K/uL Lymph # (Auto) 2.55 (1.2-3.4) K/uL [place] # (Auto) 0.89 H (0.11-0.59) K/uL Eos # (Auto) 0.10 (0-0.50) K/uL Baso # (Auto) 0.07 (0-0.2) K/uL Immature Gran # (Auto) 0.02 (0.01-0.20) K/uL PT 13.5 H (9.0-12.0) Seconds INR 1.2 H (0.9-1.1) Sodium 137 (136-145) mmol/L Potassium 3.7 (3.5-5.1) mmol/L Chloride 102 (98-107) mmol/L Carbon Dioxide 27 (21-32) mmol/L Anion Gap 8 (3-11) BUN 9 (6-23) mg/dl Creatinine 0.99 (0.6-1.4) mg/dl Est Cr Clr Drug Dosing 114.3 ml/min Est GFR ( Amer) 104.7 ml/min Est GFR (Non-Af Amer) 90.3 ml/min BUN/Creatinine Ratio 9.1 L (10-20) Glucose 82 (70-99(Fasting)) mg/dl Calcium 8.8 (8.6-10.3) mg/dl Magnesium 1.5 L (1.7-2.4) mg/dl Total Bilirubin 1.4 H (0.2-1.0) mg/dl AST 27 (13-39) U/L ALT 20 (7-52) U/L Alkaline Phosphatase 98 (34-104) U/L Troponin I High Sens (0-20) pg/ml B-Natriuretic Peptide (0-100) pg/ml Total Protein 6.4 (6.0-8.3) gm/dl Albumin 3.7 (3.4-5.0) gm/dl Globulin 2.7 (2.5-4.0) gm/dl Albumin/Globulin Ratio 1.4 (0.9-2) SARS-CoV-2 (PCR) (Negative) Influenza Type A (PCR) (Neg) Influenza Type B (PCR) (Neg) RSV (RT-PCR) (Neg) 10/02/22 10/03/22 10/03/22 Range/Units 23:40 00:01 00:31 WBC (4.8-10.8) K/ul RBC (4.70-6.10) M/uL Hgb (14.0-18.0) g/dl Hct (42.0-52.0) % MCV (80.0-100.0) fL MCH (25.0-34.0) pg MCHC (32.0-36.0) g/dL RDW Std Deviation (36.4-46.3) fL RDW Coeff of Nicolás (11.5-14.5) % Plt Count (130-400) K/uL MPV (9.4-12.4) fL Immature Gran % (Auto) % Neut % (Auto) % Lymph % (Auto) % [place] % (Auto) % Eos % (Auto) % Baso % (Auto) % Neut # (Auto) (1.40-6.50) K/uL Lymph # (Auto) (1.2-3.4) K/uL [place] # (Auto) (0.11-0.59) K/uL Eos # (Auto) (0-0.50) K/uL Baso # (Auto) (0-0.2) K/uL Immature Gran # (Auto) (0.01-0.20) K/uL PT (9.0-12.0) Seconds INR (0.9-1.1) Sodium (136-145) mmol/L Potassium (3.5-5.1) mmol/L Chloride (98-107) mmol/L Carbon Dioxide (21-32) mmol/L Anion Gap (3-11) BUN (6-23) mg/dl Creatinine (0.6-1.4) mg/dl Est Cr Clr Drug Dosing ml/min Est GFR ( Amer) ml/min Est GFR (Non-Af Amer) ml/min BUN/Creatinine Ratio (10-20) Glucose (70-99(Fasting)) mg/dl Calcium (8.6-10.3) mg/dl Magnesium (1.7-2.4) mg/dl Total Bilirubin (0.2-1.0) mg/dl AST (13-39) U/L ALT (7-52) U/L Alkaline Phosphatase (34-104) U/L Troponin I High Sens 27.4 H (0-20) pg/ml B-Natriuretic Peptide 2574 H (0-100) pg/ml Total Protein (6.0-8.3) gm/dl Albumin (3.4-5.0) gm/dl Globulin (2.5-4.0) gm/dl Albumin/Globulin Ratio (0.9-2) SARS-CoV-2 (PCR) NEGATIVE (Negative) Influenza Type A (PCR) Negative (Neg) Influenza Type B (PCR) Negative (Neg) RSV (RT-PCR) Negative (Neg) Administered Medications Discontinued Medications Albuterol (Albut/Ipratrop 3mg/0.5mg Neb 3 Ml Vial) 3 ml NEB NOW STA; Protocol Stop: 10/03/22 00:40 Last Admin: 10/03/22 01:18 Dose: 3 ml Documented By: JULIO Furosemide (Furosemide 40 Mg/4 Ml Vial) 40 mg IV ONE ONE Stop: 10/03/22 00:41 Last Admin: 10/03/22 01:08 Dose: 40 mg Documented By: JULIO Magnesium Sulfate/Dextrose (Magnesium Sulfate / D5w) 1 gm in 100 mls @ 100 mls/hr IV NOW STA Stop: 10/03/22 01:38 Last Infusion: 10/03/22 02:12 Dose: 0 mls/hr Documented By: Admin: 10/03/22 01:08 Dose: 100 mls/hr Documented By: JULIO Acetaminophen (Ofirmev) 1,000 mg in 100 mls @ 400 mls/hr IV NOW STA Stop: 10/03/22 01:24 Last Infusion: 10/03/22 02:58 Dose: 0 mls/hr Documented By: Admin: 10/03/22 02:12 Dose: 400 mls/hr Documented By: JULIO Magnesium Sulfate/Dextrose (Magnesium Sulfate / D5w) 1 gm in 100 mls @ 100 mls/hr IV NOW STA Stop: 10/03/22 05:25 Last Infusion: 10/03/22 05:45 Dose: 0 mls/hr Documented By: Admin: 10/03/22 04:38 Dose: 100 mls/hr Documented By: JULIO Imaging Data Radiologist's Impression: Chest X-Ray 10/02/22 23:39 XR chest 1V portable HISTORY: Shortness of breath. COMPARISON: Chest 03/05/2022. FINDINGS: No pneumothorax. No pleural effusions. No focal lung consolidations to suggest a pneumonia. No evidence for pulmonary edema. The cardiac silhouette is moderately enlarged. This has slightly progressed in the interval. Cervical spinal fusion hardware is noted. IMPRESSION: Moderate cardiomegaly which has slightly progressed in the interval. This could be due to cardiac enlargement or possibly an underlying pericardial effusion. ACT 112: Negative or not required by law. Electronically signed by: Misha Jerome M.D. 10/03/2022 7:22 AM Discharge Plan Visit Data Chief Complaint: Chest Pain Stated Complaint: Chest Pain, Fluid Retention, Body Aches ED Provider: Annabel Rabago Discharge Problem: Chest pain, Dyspnea, Bilateral edema of lower extremity, Noncompliance Discharge Instructions Interventions: ED Discharge Assessment Last Done: 10/03/22 03:39
[2022-10-03 00:05] LABS: Basophils # (auto) 0.07 K/uL (0-0.2); Basophils % (auto) 0.9 %; Eosinophils % (auto) 1.2 %; Hematocrit (blood only) 47.6 % (42.0-52.0); Hemoglobin 15.7 g/dl (14.0-18.0); Immature Granulocytes # (auto) 0.02 K/uL (0.01-0.20); Immature Granulocytes % (auto) 0.2 %; Lymphocytes # (auto) 2.55 K/uL (1.2-3.4); Mean Corpuscular Hemoglobin 29.4 pg (25.0-34.0); Mean Corpuscular Volume 89.1 fL (80.0-100.0); Mean Platelet Volume 9.9 fL (9.4-12.4); Monocytes # (auto) 0.89 K/uL (0.11-0.59); Monocytes % (auto) 10.8 %; Neutrophils % (auto) 55.9 %; Platelet Count 341 K/uL (130-400); RDW Coefficient of Variation 14.3 % (11.5-14.5); RDW Standard Deviation 45.7 fL (36.4-46.3); Red Blood Count 5.34 M/uL (4.70-6.10); White Blood Count 8.23 K/ul (4.8-10.8)
[2022-10-03 00:17] LABS: Albumin Globulin Ratio 1.4 (0.9-2); Albumin Level 3.7 gm/dl (3.4-5.0); BUN Creatinine Ratio 9.1 (10-20); Bilirubin,Total 1.4 mg/dl (0.2-1.0); Calcium 8.8 mg/dl (8.6-10.3); Creatinine Clr Calc Pharmacy 114.3 ml/min; Est GFR (African American) 104.7 ml/min; Est GFR (Non-African American) 90.3 ml/min; Globulin 2.7 gm/dl (2.5-4.0); Magnesium 1.5 mg/dl (1.7-2.4); Potassium 3.7 mmol/L (3.5-5.1); Total Protein 6.4 gm/dl (6.0-8.3)
[2022-10-03 00:28] LABS: INR 1.2 (0.9-1.1); Prothrombin Time 13.5 Seconds (9.0-12.0)
[2022-10-03] MEDS ORDERED: MAGNESIUM SULFATE / D5W 1 GM/100 ML BAG IV STA ×2 (00:39→04:26)
[2022-10-03] MEDS ORDERED: ALBUT/IPRATROP 3MG/0.5MG NEB 3 ML VIAL NEB STA (00:39)
[2022-10-03] MEDS ORDERED: FUROSEMIDE 40 MG/4 ML VIAL IV ONE (00:40)
[2022-10-03 00:47] LABS: Influenza A virus by PCR Negative (Neg); Influenza B virus by PCR Negative (Neg); RSV by PCR Negative (Neg); SARS CoV2 RNA(COVID-19) Ceph NEGATIVE (Negative)
[2022-10-03] MEDS ORDERED: ACETAMINOPHEN 1,000 MG/100 ML VIAL IV STA (01:10)
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
[2022-10-03] MEDS ORDERED: NITROGLYCERIN SL 0.4 MG/TAB TAB SL PRN (03:39)
[2022-10-03] MEDS ORDERED: ALBUT/IPRATROP 3MG/0.5MG NEB 3 ML VIAL NEB PRN (04:19)
[2022-10-03] MEDS ORDERED: ONDANSETRON INJ 2 MG/ML 2 ML VIAL IV PRN (04:19)
[2022-10-03 05:14] LABS: BUN Creatinine Ratio 10.3 (10-20); Calcium 8.6 mg/dl (8.6-10.3); Creatinine Clr Calc Pharmacy 116.6 ml/min; Est GFR (African American) 107.3 ml/min; Est GFR (Non-African American) 92.6 ml/min; Potassium 3.7 mmol/L (3.5-5.1)
[2022-10-03 06:29] LABS: Estimated Average Glucose 148 mg/dl; Hemoglobin A1C 6.8 % (4.5-5.6)
--- NOTE | 2022-10-03 07:23 | XRay Report ---
XR chest 1V portable HISTORY: Shortness of breath. COMPARISON: Chest 03/05/2022. FINDINGS: No pneumothorax. No pleural effusions. No focal lung consolidations to suggest a pneumonia. No evidence for pulmonary edema. The cardiac silhouette is moderately enlarged. This has slightly pr ogressed in the interval. Cervical spinal fusion hardware is noted. IMPRESSION: Moderate cardiomegaly which has slightly progressed in the interval. This could be due to cardiac enl argement or possibly an underlying pericardial effusion. ACT 112: Negative or not required by law. Electronically signed by: Misha Jerome M.D. 10/03/2022 7:22 AM
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
[2022-10-03] MEDS ORDERED: SPIRONOLACTONE 12.5 MG TAB PO SCH ×2 (09:00→20:00)
[2022-10-03] MEDS ORDERED: VALSARTAN/SACUBITRIL 51/49 MG TAB PO SCH ×2 (09:00→20:00)
[2022-10-03] MEDS ORDERED: METOPROLOL SUCC 25MG EXT REL TAB PO SCH ×2 (09:00→20:00)
[2022-10-03] MEDS ORDERED: NICOTINE 21 MG/24 HR TDSY TD SCH (09:00)
[2022-10-03] MEDS ORDERED: FUROSEMIDE 40 MG/4 ML VIAL IV SCH (09:00)
[2022-10-03] MEDS ORDERED: EMPAGLIFLOZIN 10 MG TAB PO SCH (09:00)
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
--- NOTE | 2022-10-03 13:04 | XCELERA ---
[id number]
--- NOTE | 2022-10-03 15:44 | Electrocardiogram Report ---
Test Reason : Blood Pressure : / mmHG Vent. Rate : 084 BPM Atrial Rate : 084 BPM P-R Int : 182 ms QRS Dur : 128 ms QT Int : 456 ms P-R-T Axes : 067 -28 047 degrees QTc Int : 538 ms Normal sinus rhythm Possible Left atrial enlargement Left ventricular hypertrophy with QRS widening Abnormal ECG When compared with ECG of 07-MAR-2022 07:54, No significant change was found Confirmed by Randolph Beckwith ([id number]) on 10/03/2022 3:44:02 PM Referred By: REFERRED SELF Confirmed By:Randolph Beckwith
--- NOTE | 2022-10-03 18:00 | Billing Data ---
Date of Service October 03, 2022 Coding Level of Care Code 08769 SUB INP/OBS CARE MIN
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
[2022-10-03] MEDS ORDERED: FUROSEMIDE 80 MG TAB PO SCH (20:15)
--- NOTE | 2022-10-04 06:00 | Billing Data ---
Date of Service October 04, 2022 Coding Level of Care Code 71922 INT INP/OBS CARE
[2022-10-04] MEDS ORDERED: FUROSEMIDE 80 MG TAB PO SCH (09:00)
== END 2022-10-03 20:36 | disposition left against medical advice (07) | DRG 291 ==
LOC: ED 23:28 → EDINP 10-03 02:06 → SUATTDRO 10-03 02:06 → 2N 10-03 03:39

== ENCOUNTER 2023-03-14 18:26 | Observation (INO) ==
[2023-03-14] MEDS ORDERED: NITROGLYCERIN SL 0.4 MG/TAB TAB SL STA ×2 (18:50→19:23)
--- NOTE | 2023-03-14 18:58 | Emergency Department Note ---
History of Present Illness General Chief complaint: Cardiac Assessment Stated complaint: DIZZY AND BACK PAIN Time Seen by Provider: 03/14/23 18:38 Source: patient, RN notes reviewed and old records reviewed (I did review a cardiology office visit from 11-19-2022 for CHF) Mode of arrival: EMS Limitations: no limitations History of Present Illness Maximum Pain Intensity: 5 This patient is a 47-year-old male who has lightheadedness and pain in between his shoulder blades. He has had heart attacks before and says this feels similar he does have history of significant cardiomyopathy with an EF of 15 to 20% and CHF he is actually followed by our CHF clinic he does have valvular heart disease as well. He started getting short of breath yesterday and lightheaded he was at his sister's house and walked and felt like he was in a pass out. He has some minimal left-sided chest pain and pain between shoulder blades on route he received aspirin 3 and 24 mg nitroglycerin sublingual x 1 he is feeling a lot better has minimal discomfort at present. He has been compliant with his medications no recent change no fever or cough. He does have some mild lower extremity edema. This is worse than normal. Home Medications Medication Instructions Recorded Confirmed Type albuterol sulfate 90 mcg/actuation 2 puff inhalation Q6H PRN 11/01/22 03/14/23 Rx aerosol inhaler (Ventolin HFA) shortness of breath or wheezing #8.5 grams aspirin 81 mg tablet,delayed 81 mg PO DAILY #30 tabs 11/01/22 03/14/23 Rx release nicotine 21 mg/24 hr daily 21 mg transdermal QAM #14 ea 11/01/22 03/14/23 Rx transdermal patch (Nicoderm CQ) nitroglycerin 0.4 mg sublingual 0.4 mg sublingual Q5M PRN chest 11/01/22 03/14/23 Rx tablet (Nitrostat) pain #30 tabs pantoprazole 40 mg tablet,delayed 40 mg PO QAM #30 tabs 11/01/22 03/14/23 Rx release rosuvastatin 20 mg tablet (Crestor) 20 mg PO QAM #30 tabs 11/01/22 03/14/23 Rx furosemide 40 mg tablet (Lasix) 40 mg PO QAM #30 tabs 11/19/22 03/14/23 Rx metoprolol succinate 25 mg 25 mg PO QAM #30 tabs 11/19/22 03/14/23 Rx tablet,extended release 24 hr potassium chloride 20 mEq 20 meq PO QAM #30 tabs 11/19/22 03/14/23 Rx tablet,extended release(part/cryst) sacubitril 49 mg-valsartan 51 mg 1 tab PO BID #60 tabs 11/19/22 03/14/23 Rx tablet (Entresto) spironolactone 25 mg tablet 25 mg PO QAM #90 tabs 11/19/22 03/14/23 Rx Allergies Allergy/AdvReac Type Severity Reaction Status Date / Time Sulfa (Sulfonamide Allergy Intermediate Hives Verified 11/19/22 15:38 Antibiotics) Past Med/Surg History Medical History Ventricular tachycardia Tobacco abuse Cardiomyopathy Elevated troponin I level Chest pain High cholesterol Hypertension History of heart attack Family History Father Myocardial infarction Mother Stroke Brother Cirrhosis Sister Hypertension Social History Smoking Status: Former smoker Tobacco Type: Cigarettes Cigarettes Per Day: 1/2 pack; Second Hand Exposure: Yes; Do You Dip or Chew Tobacco: No; Hx Alcohol Use: No Hx Substance Use: No Preferred Language: Somali Communication Ability: Effective Speech Therapy Assistant Required: No Beliefs That Will Affect Care: Spiritual Current Living Situation: Family Current Living Situation Comment: homeless within family- sleeps on sisters couch or friend's couch Feels Safe at Home: Yes Assistive Devices: None Review of Systems A total of 10 systems reviewed and were otherwise negative Physical Exam Vital Signs Vital Signs - 24 hr 03/14/23 18:36 03/14/23 18:41 03/14/23 18:42 Pulse Rate 82 Pulse Rate [Finger] 84 Respiratory Rate 15 12 Respiratory Effort / Characteristics Non-Labored Non-Labored Spontaneous Non-Labored Respiratory Depth Normal Normal Normal Blood Pressure 136/98 Blood Pressure [Right Arm] 136/98 Blood Pressure Mean 110 Blood Pressure Mean [Right Arm] 110 Pulse Oximetry 97 97 Oxygen Delivery Method Room Air Room Air Oxygen Flow Rate Sepsis Recent Fever Within 48 Hours No Sepsis New/Unexplained Change in Mental Status No Sepsis Action Taken by Nursing No Action Required 03/14/23 19:29 03/14/23 20:02 03/14/23 20:02 Pulse Rate 92 H Pulse Rate [Finger] 90 Respiratory Rate 18 18 Respiratory Effort / Characteristics Non-Labored Respiratory Depth Normal Blood Pressure Blood Pressure [Right Arm] 106/68 Blood Pressure Mean Blood Pressure Mean [Right Arm] 80 Pulse Oximetry 97 98 97 Oxygen Delivery Method Room Air Room Air Room Air Oxygen Flow Rate 0 0 Sepsis Recent Fever Within 48 Hours Sepsis New/Unexplained Change in Mental Status Sepsis Action Taken by Nursing General: Well developed well nourished middle-age male who appears in no acute distress, breathing comfortably on room air. Normal speech HEENT: Normal cephalic atraumatic. Pupils are equal round and reactive to light. Extraocular movements are intact. Oropharynx is pink with moist mucous membranes. No swelling of the mouth lips or tongue. Neck: Supple with a midline trachea. No meningeal signs or stiffness, no JVD or bruits. No Stridor. Chest: Normal respiratory effort but he does have scattered to auscultation bilaterally. . No increased work of breathing. Heart: Regular rate and rhythm without murmurs or gallops. Abdomen: Soft nontender, nondistended without rebound guarding or rigidity. Extremities: No cyanosis clubbing. Trace bilateral lower extremity edema. No calf tenderness or assymetry Spine/Back. Non tender to palpation. No CVA tenderness Skin: Good turgor without rashes. Neurologic exam: Cranial nerves two through 12 are intact. Motor and sensation are intact and symmetrical throughout. Uses Course Administered Medications Potassium Chloride (K Ricardo / Wtr) 10 meq in 100 mls @ 100 mls/hr IV Q1H JUSTINO Stop: 03/14/23 23:44 Last Admin: 03/14/23 21:25 Dose: 100 mls/hr Documented By: Magnesium Sulfate/Dextrose (Magnesium Sulfate / D5w) 1 gm in 100 mls @ 50 mls/hr IV ONE ONE Stop: 03/14/23 22:56 Last Admin: 03/14/23 21:25 Dose: 50 mls/hr Documented By: Discontinued Medications Acetaminophen (Acetaminophen 325 Mg Tab) 650 mg PO NOW STA Stop: 03/14/23 20:27 Last Admin: 03/14/23 21:25 Dose: 650 mg Documented By: Furosemide (Furosemide Inj 20 Mg/2 Ml Vial) 20 mg IV ONE ONE Stop: 03/14/23 19:44 Last Admin: 03/14/23 21:39 Dose: Not Given Documented By: ARMANDO Famotidine 20 mg/ Syringe 5 mls @ 2.5 mls/min IV ONE ONE Stop: 03/14/23 20:31 Last Admin: 03/14/23 21:25 Dose: 2.5 mls/min Documented By: Metoprolol Succinate (Metoprolol Succ 25mg Ext Rel Tab) 25 mg PO NOW STA Stop: 03/14/23 20:24 Last Admin: 03/14/23 21:24 Dose: 25 mg Documented By: Nitroglycerin (Nitroglycerin Sl 0.4 Mg/Tab Tab) 0.4 mg SL NOW STA Stop: 03/14/23 18:51 Last Admin: 03/14/23 19:16 Dose: 0.4 mg Documented By: ARMANDO Nitroglycerin (Nitroglycerin Sl 0.4 Mg/Tab Tab) 0.4 mg SL NOW STA Stop: 03/14/23 19:24 Last Admin: 03/14/23 19:33 Dose: 0.4 mg Documented By: ARMANDO Potassium Chloride (Potassium Chloride Crtab 20 Meq Tabcr) 40 meq PO NOW STA Stop: 03/14/23 20:34 Last Admin: 03/14/23 21:25 Dose: 40 meq Documented By: Critical Care Time Critical Care Time: Yes Total Critical Care Time: 35 Due to the patient's cardiac symptoms, need for frequent reassessment, multiple medications and consultation, I have personally spent greater than 35 minutes of critical care time in the direct management of this patient. This includes bedside care, interpretation of diagnostic studies, and testing, discussion with consultants, patient, and family members, and other required patient management activities. This 35 minutes is in excess of all separately billable procedures. Medical Decision Making Differential Diagnosis CHF, acute coronary syndrome, arrhythmia, electrolyte or metabolic abnormality, infection, pneumothorax, pneumonia, COVID Medical Records Attestation: I reviewed the patient's medical records. Home Medications Current Medication List: was personally reviewed by me Laboratory Data Attestation: I reviewed the patient's lab results. 03/14/23 18:36 03/14/23 18:36 Lab Results 03/14/23 03/14/2324 Range/Units 18:36 19:20 20:45 WBC 6.94 (4.8-10.8) K/ul RBC 5.15 (4.70-6.10) M/uL Hgb 15.1 (14.0-18.0) g/dl Hct 48.2 (42.0-52.0) % MCV 93.6 (80.0-100.0) fL MCH 29.3 (25.0-34.0) pg MCHC 31.3 L (32.0-36.0) g/dL RDW Std Deviation 51.8 H (36.4-46.3) fL RDW Coeff of Nicolás 15.0 H (11.5-14.5) % Plt Count 359 (130-400) K/uL MPV 10.1 (9.4-12.4) fL Immature Gran % (Auto) 0.3 % Neut % (Auto) 62.8 % Lymph % (Auto) 24.2 % [place] % (Auto) 10.7 % Eos % (Auto) 1.3 % Baso % (Auto) 0.7 % Neut # (Auto) 4.36 (1.40-6.50) K/uL Lymph # (Auto) 1.68 (1.20-3.40) K/uL [place] # (Auto) 0.74 H (0.11-0.59) K/uL Eos # (Auto) 0.09 (0.00-0.50) K/uL Baso # (Auto) 0.05 (0.00-0.20) K/uL Immature Gran # (Auto) 0.02 (0.01-0.20) K/uL PT 11.7 (9.0-12.0) Seconds INR 1.1 (0.9-1.1) APTT 27 (21-31) Seconds PTT Ratio 1.0 Sodium 135 L (136-145) mmol/L Potassium 3.4 L (3.5-5.1) mmol/L Chloride 102 (98-107) mmol/L Carbon Dioxide 27 (21-32) mmol/L Anion Gap 6 (3-11) BUN 19 (6-23) mg/dl Creatinine 0.96 (0.6-1.4) mg/dl Est Cr Clr Drug Dosing 98.5 ml/min Est GFR ( Amer) 107.9 ml/min Est GFR (Non-Af Amer) 93.1 ml/min BUN/Creatinine Ratio 19.8 (10-20) Glucose 125 H (70-99(Fasting)) mg/dl Calcium 8.9 (8.6-10.3) mg/dl Magnesium 1.9 (1.7-2.4) mg/dl Total Bilirubin 0.5 (0.2-1.0) mg/dl AST 28 (13-39) U/L ALT 21 (7-52) U/L Alkaline Phosphatase 78 (34-104) U/L Troponin I High Sens 22.8 H 25.1 H (0-20) pg/ml B-Natriuretic Peptide 2041 H (0-100) pg/ml Total Protein 6.5 (6.0-8.3) gm/dl Albumin 3.7 (3.4-5.0) gm/dl Globulin 2.8 (2.5-4.0) gm/dl Albumin/Globulin Ratio 1.3 (0.9-2) Lipase 12 (11-82) U/L SARS-CoV-2, RNA, NAAT NEGATIVE (NEGATIVE) Imaging Data Attestation: I personally reviewed and interpreted this imaging study as follows: My Impression: Chest xray-cardiomegaly no overt CHF changes. Mild COPD. No pneumonia or pneumothorax seen. Radiologist's Impression: Chest X-Ray 03/14/23 18:49 XR chest 1V portable HISTORY: 47 years-old Male Chest pain, nonspecific COMPARISON: 10/30/2022 TECHNIQUE: AP view of the chest FINDINGS: Cardiac silhouette is enlarged. No pneumothorax, pleural effusion, airspace consolidation or pulmonary edema. Mild pulmonary emphysema with hyperinflation. Bones appear grossly intact. IMPRESSION: 1. Cardiomegaly without acute process. 2. Mild pulmonary emphysema redemonstrated. ACT 112: Negative or not required by law. The above report was generated using voice recognition software. It may contain grammatical, syntax or spelling errors. Electronically signed by: Yakov Miller M.D. 03/14/2023 7:06 PM ECG Data Attestation: I personally reviewed and interpreted this ECG as follows: Indication: + back/shoulder pain Rate (beats per minute): 88 Rhythm: + normal sinus ECG Intervals/blocks: + Normal QRS, + Prolonged QT and + Normal [place] ECG [place]: + Left axis deviation ECG ST segments: + Normal ST segments ECG Findings: + Other (Lateral T wave inversions) Comparison ECG Date: from (10/30/22) Change: no significant change Additional Comments: EKG #2, normal sinus rhythm rate of 99 LVH T wave inversions laterally no change compared EKG #1 MDM Narrative Patient comes in as described above. He was placed in room A9. He is here for treatment and evaluation of possible cardiac event he has had some increasing shortness of breath since yesterday. He appears in no distress but he does have a significant cardiac history including CHF. His pain is almost completely resolved I did give him additional nitroglycerin sublingual. Chest x-ray was ordered EKG was ordered multiple blood testing was ordered he was placed on a library monitor IV access was established his initial EKG shows no significant arrhythmia he does have a PVC but no acute ischemic changes when compared to old he does have some chronic lateral T wave inversions. His QTc is mildly prolonged as well. His troponin is only mildly elevated in the 20 range. A repeat troponin shows only a slight elevation compared to first. BNP was elevated but about baseline. I did give the patient Lasix 20 mg IV to help with any potential CHF component particular given his history. I do think he needs to be admitted/observed for further inpatient treatment and evaluation. When to go to check on him he is sleeping comfortably and appears in no pain or respiratory distress. I have discussed the case at length and consultation with Dr. Ayoub and the [facility] hospitalist team will see him for these measures. COVID testing was negative Continuous library monitor: Orders placed in EMR for continuous library monitor call upon my evaluation patient noted to be in normal sinus rhythm with a rate of 85. Impression & Plan Chest pain, CAD (coronary artery disease), Abnormal EKG, Elevated troponin I level, CHF (congestive heart failure), Lab test negative for COVID-19 virus Discharge Plan Visit Data Chief Complaint: Cardiac Assessment Stated Complaint: DIZZY AND BACK PAIN ED Provider: Tomas Larios Discharge Problem: Chest pain, CAD (coronary artery disease), Abnormal EKG, Elevated troponin I level, CHF (congestive heart failure), Lab test negative for COVID-19 virus Forms Stand Alone Forms: My [facility] Prescriptions Prescriptions: No Action furosemide [Lasix] 40 mg tablet 40 mg PO QAM Qty: 30 3RF metoprolol succinate 25 mg tablet extended release 24 hr 25 mg PO QAM Qty: 30 1RF potassium chloride 20 mEq tablet,ER particles/crystals 20 meq PO QAM Qty: 30 0RF Entresto 49-51 mg tablet 1 tab PO BID Qty: 60 1RF spironolactone 25 mg tablet 25 mg PO QAM Qty: 90 3RF albuterol sulfate [Ventolin HFA] 90 mcg/actuation Hfa Aerosol Inhaler 2 puff inhalation Q6H PRN (Reason: shortness of breath or wheezing) Qty: 8.5 0RF nicotine [Nicoderm CQ] 21 mg/24 hr Patch 24 Hour 21 mg transdermal QAM Qty: 14 0RF Rx Instructions: Can buy OTC nitroglycerin [Nitrostat] 0.4 mg Tablet, Sublingual 0.4 mg sublingual Q5M PRN (Reason: chest pain) Qty: 30 0RF Rx Instructions: x 3 doses and call your doctor or go to the hospital rosuvastatin [Crestor] 20 mg Tablet 20 mg PO QAM Qty: 30 0RF aspirin 81 mg Tablet,Delayed Release (Dr/Ec) 81 mg PO DAILY Qty: 30 0RF pantoprazole 40 mg Tablet,Delayed Release (Dr/Ec) 40 mg PO QAM Qty: 30 0RF Referrals Referrals: PCP,NO [Primary Care Provider] - Discharge Problem: Chest pain Qualifiers: Chest pain type: precordial pain Qualified Code(s): R07.2 - Precordial pain CAD (coronary artery disease) Qualifiers: Coronary Disease-Associated Artery/Lesion type: unspecified vessel or lesion type [place] vs. transplanted heart: unspecified whether [place] or transplanted heart Associated angina: unspecified whether angina present Qualified Code(s): I 25.10 - Atherosclerotic heart disease of [place] coronary artery without angina pectoris CHF (congestive heart failure) Qualifiers: Heart failure type: unspecified Heart failure chronicity: acute on chronic Q ualified Code(s): I50.9 - Heart failure, unspecified
--- NOTE | 2023-03-14 19:07 | XRay Report ---
XR chest 1V portable HISTORY: 47 years-old Male Chest pain, nonspecific COMPARISON: 10/30/2022 TECHNIQUE: AP view of the chest FINDINGS: Cardiac silhouette is enlarged. No pneumothorax, pleural effusion, airspace consolidation or pulmonar y edema. Mild pulmonary emphysema with hyperinflation. Bones appear grossly intact. IMPRESSION: 1. Cardiomegaly without acute process. 2. Mild pulmonary emphysema redemonstrated. ACT 112: Negative or not required by law. The above report was generated using voice recognition software. It may contain grammatical, syntax o r spelling errors. Electronically signed by: Yakov Miller M.D. 03/14/2023 7:06 PM
[2023-03-14 19:10] LABS: Basophils # (auto) 0.05 K/uL (0.00-0.20); Basophils % (auto) 0.7 %; Eosinophils # (auto) 0.09 K/uL (0.00-0.50); Eosinophils % (auto) 1.3 %; Hematocrit (blood only) 48.2 % (42.0-52.0); Hemoglobin 15.1 g/dl (14.0-18.0); Immature Granulocytes # (auto) 0.02 K/uL (0.01-0.20); Immature Granulocytes % (auto) 0.3 %; Lymphocytes # (auto) 1.68 K/uL (1.20-3.40); Lymphocytes % (auto) 24.2 %; Mean Corpuscular Hemoglobin 29.3 pg (25.0-34.0); Mean Corpuscular Hgb Conc 31.3 g/dL (32.0-36.0); Mean Corpuscular Volume 93.6 fL (80.0-100.0); Mean Platelet Volume 10.1 fL (9.4-12.4); Monocytes # (auto) 0.74 K/uL (0.11-0.59); Monocytes % (auto) 10.7 %; Neutrophils # (auto) 4.36 K/uL (1.40-6.50); Neutrophils % (auto) 62.8 %; Platelet Count 359 K/uL (130-400); RDW Standard Deviation 51.8 fL (36.4-46.3); Red Blood Count 5.15 M/uL (4.70-6.10); White Blood Count 6.94 K/ul (4.8-10.8)
[2023-03-14 19:22] LABS: INR 1.1 (0.9-1.1); Partial Thromboplastin Time 27 Seconds (21-31); Prothrombin Time 11.7 Seconds (9.0-12.0)
[2023-03-14 19:35] LABS: Albumin Level 3.7 gm/dl (3.4-5.0); Bilirubin,Total 0.5 mg/dl (0.2-1.0); Calcium 8.9 mg/dl (8.6-10.3); Magnesium 1.9 mg/dl (1.7-2.4); Potassium 3.4 mmol/L (3.5-5.1)
[2023-03-14 19:41] LABS: Albumin Globulin Ratio 1.3 (0.9-2); BUN Creatinine Ratio 19.8 (10-20); Creatinine Clr Calc Pharmacy 98.5 ml/min; Est GFR (African American) 107.9 ml/min; Est GFR (Non-African American) 93.1 ml/min; Globulin 2.8 gm/dl (2.5-4.0); Total Protein 6.5 gm/dl (6.0-8.3)
[2023-03-14 19:43] LABS: Troponin I High Sensitivity 22.8 pg/ml (0-20)
[2023-03-14] MEDS ORDERED: FUROSEMIDE INJ 20 MG/2 ML VIAL IV ONE (19:43)
--- NOTE | 2023-03-14 20:00 | History & Physical Report ---
Date of Service March 14, 2023 Assessment & Plan (1) Back pain: Plan: -Admit to the PCU on tele and pulse oximetry -Currently hemodynamically stable and stable on RA -Presented to the ED via EMS with acute onset of back pain between his shoulder blades and dizziness which began approximately 3 hours prior to ED arrival -Also developed associated epigastric pain -Patient states that back pain is similar to previous IL's -Received 324 mg Aspirin and 3 doses of 0.4 mg SL nitroglycerine prior to admission -No acute trauma on evaluation of his back -Initial high sen trop elevated at 22, BNP elevated at 2040 but this is lower than previous admissions -Suspect his abdominal pain to be associated with gastritis, this could be contributing to his back pain as well, but we cannot rule out cardiac etiology with his significant hx -ECG's show T-wave inversion in the in the anterior and septal leads but are negative for acute ST segment changes -Holding the 20 mg IV lasix ordered in the ED as he appears euvolemic -Will give his home metoprolol dose he missed today -Will give 20 mg IV famotidine and 40 mg IV pantoprazole now -Will also give 650 mg PO tylenol -Stat 2 hour repeat high sen trop ordered on admission; will also trend q6h overnight -Will consult cardiology and ordered TTE to be obtained in the am -Will start clear liquid diet for now -BL SCD's for DVT PPX -AM CBC, BMP, mag (2) Dizziness: Plan: -Likely due to his abdominal/chest pain -Has resolved prior to admission -Patient has a long hx of drug abuse, will add on UA with urine tox screen -Continue to monitor on tele (3) Epigastric pain: Plan: -Continue medications for gastritis/reflux and monitor for improvement -Continue home pantoprazole tomorrow (4) Hypokalemia: Plan: -Noted to be 3.4 on arrival -Will give 3 bags of 10 meq IV KCL and 40 mg PO KCL -Mag is WNL at 1.9 but will give 1gm IV mag sulfate now to keep at 2.0 or above -Monitor am electrolytes (5) Hypertension: Plan: -stable -Continue metoprolol (6) CAD (coronary artery disease): Plan: -Continue aspirin, metoprolol (7) Cardiomyopathy: Plan: -Currently euvolemic on exam -Continue entesto -Continue am lasix and spironolactone tomorrow -AM TTE and cardiology consult (8) Tobacco abuse: Plan: -Patient denies need for nicotine patch at this time Plan The patient was discussed with Dr. Salas at the time of the admission History of Present Illness Chief Complaint: Dizziness, back pain Primary Care Provider: NO PCP Eagle Weeks is a 47 yo M with extensive cardiac PMH including HFrEF (EF 15- 20% in 09/2022), cardiomyopathy, CAD, MR, TR, HTN, HLD, myocardial infarction x2, tobacco use, and medication nonadherence who presented to the [facility] ED on 03/14/23 via EMS with complaints of dizziness and pain between his shoulder blades. Per the ED staff, the back pain is similar to symptoms experienced with his previous IL's. He remained stable in the ED. Labs were significant for a potassium of 3.4 initial high sen trop of 22, BNP of 2040 (lower than previous admissions), chest xray was read as "1. Cardiomegaly without acute process. 2. Mild pulmonary emphysema redemonstrated. ". The patient was reportedly given 324 PO aspirin and 1 dose of SL nitroglycerin by EMS in route. He was given an additional 2 doses of 0.4 mg SL nitroglycerine and ordered 20 mg IV lasix in the ED prior to admission. At the time of the exam the patient was lying in bed in mild distress. He states that he went to his Sister's house a few hours ago to help her with one of her sick pets. While at her home he started to develop back pain located between the shoulder blades and dizziness. He denies the sensation that the room is spinning and denies other focal neurologic defects. Shortly after the initial symptoms he also developed epigastric pain. When asked, he states he forgot to take his medications this am and has not had anything to eat or drink. He has not smoked in approximately 9 days and is trying his best to continue smoking cessation. He does smoke marijuana a few times weekly when his chronic back pain is severe. When asked, he states that the nitroglycerine he received by EMS and the ED may have improved the symptoms a little, but they have been constant for at least 2 hours prior to ED arrival. He does have a hx of reflux, he denies recent alcohol use. He also denies recent fever, chills, cough, dysuria, hematuria, melena, LE swelling, and recent trauma. He did have one episdoe of nausea and non-bloody emesis prior to EMS arrival. He is a full code and would want his son to make medical decisions for him if he cannot make them himself. Please refer to Dr. Salas's attestation for any changes to the treatment plan Allergies Allergy/AdvReac Type Severity Reaction Status Date / Time Sulfa (Sulfonamide Allergy Intermediate Hives Verified 11/19/22 15:38 Antibiotics) Home Medications Medication Instructions Recorded Confirmed Type albuterol sulfate 90 mcg/actuation 2 puff inhalation Q6H PRN 11/01/22 03/14/23 Rx aerosol inhaler (Ventolin HFA) shortness of breath or wheezing #8.5 grams aspirin 81 mg tablet,delayed 81 mg PO DAILY #30 tabs 11/01/22 03/14/23 Rx release nicotine 21 mg/24 hr daily 21 mg transdermal QAM #14 ea 11/01/22 03/14/23 Rx transdermal patch (Nicoderm CQ) nitroglycerin 0.4 mg sublingual 0.4 mg sublingual Q5M PRN chest 11/01/22 03/14/23 Rx tablet (Nitrostat) pain #30 tabs pantoprazole 40 mg tablet,delayed 40 mg PO QAM #30 tabs 11/01/22 03/14/23 Rx release rosuvastatin 20 mg tablet (Crestor) 20 mg PO QAM #30 tabs 11/01/22 03/14/23 Rx furosemide 40 mg tablet (Lasix) 40 mg PO QAM #30 tabs 11/19/22 03/14/23 Rx metoprolol succinate 25 mg 25 mg PO QAM #30 tabs 11/19/22 03/14/23 Rx tablet,extended release 24 hr potassium chloride 20 mEq 20 meq PO QAM #30 tabs 11/19/22 03/14/23 Rx tablet,extended release(part/cryst) sacubitril 49 mg-valsartan 51 mg 1 tab PO BID #60 tabs 11/19/22 03/14/23 Rx tablet (Entresto) spironolactone 25 mg tablet 25 mg PO QAM #90 tabs 10/03/23 01/26/24 Rx prednisone 20 mg tablet 40 mg (2 x 20 mg) PO DAILY 4 days 03/15/23 Rx #8 tabs Past Med/Surg History Medical History Ventricular tachycardia Tobacco abuse Cardiomyopathy Elevated troponin I level Chest pain High cholesterol Hypertension History of heart attack Family History Father Myocardial infarction Mother Stroke Brother Cirrhosis Sister Hypertension Social History Smoking Status: Former smoker Tobacco Type: Cigarettes Cigarettes Per Day: 1/2 pack; Second Hand Exposure: Yes; Do You Dip or Chew Tobacco: No; Hx Alcohol Use: No Hx Substance Use: No Preferred Language: French Communication Ability: Effective Administrative Aide Required: No Beliefs That Will Affect Care: None Current Living Situation: Family Current Living Situation Comment: staying on families couch Feels Safe at Home: Yes Assistive Devices: None Physical Exam Physical Exam: Physical Exam: General: In mild distress, stated age, well-nourished, non-toxic appearing HEENT: Normocephalic, atraumatic, no scleral icterus, pupils around round, symmetrical, and reactive to light, moist mucus membranes, negative JVD, trachea midline, no thyromegaly Chest/Pulm: No respiratory distress, symmetrical chest expansion, scattered expiratory wheezing Cardiac: RRR, 3/6 systolic murmur noted Abdomen: Negative for ascites and bruising, normoactive bowel sounds, soft, significantly tender to palpation in the epigastric region Musculoskeletal: Symmetrical and without signs of acute trauma, upper and lower extremities with full ROM, no atrophy, spasticity, or flaccidity Extremities: Radial, dorsalis pedis, and posterior tibial pulses are intact and symmetrical, no edema noted in the BL LE's Skin: Warm, dry, no rashes , lesions, or scars noted Neuro: Alert and oriented to person, place, month, year, and president, no focal defects, no tremors noted Psych: No acute distress, calm and cooperative during the exam Results & Data Results & Data Vital Signs (Past 12 Hours) Vital Signs Pulse Pulse Resp BP BP Pulse Ox O2 Del Method 03/14/23 19:29 90 18 106/68 97 Room Air 03/14/23 18:42 84 12 136/98 97 Room Air 03/14/23 18:36 82 15 136/98 97 Room Air Laboratory Results Abnormal lab results 03/14/23 Range/Units 18:36 MCHC 31.3 L (32.0-36.0) g/dL RDW Std Deviation 51.8 H (36.4-46.3) fL RDW Coeff of Nicolás 15.0 H (11.5-14.5) % [place] # (Auto) 0.74 H (0.11-0.59) K/uL Sodium 135 L (136-145) mmol/L Potassium 3.4 L (3.5-5.1) mmol/L Glucose 125 H (70-99(Fasting)) mg/dl Troponin I High Sens 22.8 H (0-20) pg/ml B-Natriuretic Peptide 2041 H (0-100) pg/ml Diagnostic Findings Chest X-Ray 03/14/23 18:49 XR chest 1V portable HISTORY: 47 years-old Male Chest pain, nonspecific COMPARISON: 10/30/2022 TECHNIQUE: AP view of the chest FINDINGS: Cardiac silhouette is enlarged. No pneumothorax, pleural effusion, airspace consolidation or pulmonary edema. Mild pulmonary emphysema with hyperinflation. Bones appear grossly intact. IMPRESSION: 1. Cardiomegaly without acute process. 2. Mild pulmonary emphysema redemonstrated. ACT 112: Negative or not required by law. The above report was generated using voice recognition software. It may contain grammatical, syntax or spelling errors. Electronically signed by: Yakov Miller M.D. 03/14/2023 7:06 PM ECG Additional Comments: Sinus rhythm with occasional Premature ventricular complexes Possible Left atrial enlargement Left axis deviation Left ventricular hypertrophy with QRS widening ( Sokolow-Villatoro , [place] product , Romhilt-Velez ) Nonspecific T wave abnormality Abnormal ECG When compared with ECG of 30-OCT-2022 13:13, Premature ventricular complexes are now Present Right bundle branch block is no longer Present Code Status & VTE Plan Code Status full code VTE Prophylaxis Plan VTE Prophylaxis will be ordered: Yes Supervising Physician Co-Signing Physician Notes Attending addendum: I have physically seen this patient, have supervised the PHILIP's activities, and agree with the H&P unless as otherwise noted. Assessment and Plan: Back pain between shoulder blades/dizziness/CAD/CHF/history of IL/cardiomyopathy- The patient will be admitted to telemetry for serial cardiac enzymes, serial EKG's, cardiac rhythm monitoring and a 2-D echocardiogram with Dopplers. Patient reports that his symptoms are similar to previous MIs Troponin 22.8 on admission with follow-up pending Patient did receive nitroglycerin sublingual x 2 in the ED and furosemide 20 mg IV Hold any further furosemide at this time Continue metoprolol dosing, as patient missed his last dose Pantoprazole 40 mg IV and famotidine 20 mg IV every 12 hours Acetaminophen 650 mg by mouth every 4 hours as needed for mild pain or fever Unclear whether this is a cardiac or GI issue, or combination. Continue aspirin, Entresto, furosemide and spironolactone Cardiology consult PG Care Time/CCT Total # of Minutes Spent Total Time Spent with Patient: Total time spent is greater than 50% in coordination of care (as documented) at patient's floor/unit and/or counseling patient: C[place] [address] INT INP/OBS CARE 3/75MIN Patient Type Established Medical Decision Making High Complexity Diagnoses Back pain M54.9 Dizziness R42 Epigastric pain R10.13 Hypokalemia E87.6 Hypertension I10 CAD (coronary artery disease) I25.10 Cardiomyopathy I42.9 Tobacco abuse Z72.0
[2023-03-14] MEDS ORDERED: METOPROLOL SUCC 25MG EXT REL TAB PO STA (20:23)
[2023-03-14] MEDS ORDERED: ACETAMINOPHEN 325 MG TAB PO STA (20:26)
[2023-03-14] MEDS ORDERED: FAMOTIDINE 20 MG in SYRINGE 3 ML IV ONE (20:30)
[2023-03-14] MEDS ORDERED: POTASSIUM CHLORIDE CRTAB 20 MEQ TABCR PO STA (20:33)
[2023-03-14] MEDS ORDERED: MAGNESIUM SULFATE / D5W 1 GM/100 ML BAG IV ONE (20:57)
[2023-03-14] MEDS: POTASSIUM CHLORIDE / WTR 10 MEQ/100 ML PLCT IV SCH ×2 (21:25→23:40)
[2023-03-15] MEDS ORDERED: ACETAMINOPHEN 325 MG TAB PO PRN
[2023-03-15] MEDS ORDERED: ALBUTEROL 0.083% NEBU SOLN 3 ML VIAL NEB STA (00:02)
[2023-03-15] MEDS: VALSARTAN/SACUBITRIL 51/49 MG TAB PO SCH ×2 (00:08→08:26)
[2023-03-15] MEDS: POTASSIUM CHLORIDE / WTR 10 MEQ/100 ML PLCT IV SCH (01:16)
[2023-03-15 01:51] LABS: Appearance Urine Clear (Clear); Bilirubin Urine Negative (Negative); Blood Urine Trace-intact (Negative); Color Urine Yellow; Glucose Urine UA Negative (Negative); Ketones Urine Negative (Negative); Leukocyte Esterase Urine Negative (Negative); Nitrite Urine Negative (Negative); Protein Urine 3+ (Negative); Specific Gravity Urine >= 1.030 (1.000-1.030); Urobilinogen Urine Positive (Negative); pH Urine 5.5 (4.5-7.5)
[2023-03-15 02:31] LABS: Amphetamines+Metham, Urine Pos (Neg); Barbiturates, Urine Neg (Neg); Benzodiazepine, Urine Neg (Neg); Cocaine, Urine Neg (Neg); MDMA (Ecstacy), Urine Neg (Neg); Marijuana, Urine Pos (Neg); Methadone, Urine Neg (Neg); Opiate, Urine Neg (Neg); Phencyclidine, Urine Neg (Neg)
[2023-03-15 02:33] LABS: Bacteria Urine Negative (Negative); RBC Urine 0-4 /hpf (0-4); WBC Urine 0-5 /hpf (0-5)
[2023-03-15 03:14] LABS: Basophils # (auto) 0.06 K/uL (0.00-0.20); Eosinophils # (auto) 0.12 K/uL (0.00-0.50); Eosinophils % (auto) 1.9 %; Hematocrit (blood only) 43.4 % (42.0-52.0); Hemoglobin 13.7 g/dl (14.0-18.0); Immature Granulocytes # (auto) 0.02 K/uL (0.01-0.20); Immature Granulocytes % (auto) 0.3 %; Lymphocytes # (auto) 2.22 K/uL (1.20-3.40); Lymphocytes % (auto) 35.9 %; Mean Corpuscular Hemoglobin 29.1 pg (25.0-34.0); Mean Corpuscular Hgb Conc 31.6 g/dL (32.0-36.0); Mean Corpuscular Volume 92.1 fL (80.0-100.0); Monocytes # (auto) 0.61 K/uL (0.11-0.59); Monocytes % (auto) 9.9 %; Neutrophils # (auto) 3.16 K/uL (1.40-6.50); Platelet Count 314 K/uL (130-400); RDW Standard Deviation 50.6 fL (36.4-46.3); Red Blood Count 4.71 M/uL (4.70-6.10); White Blood Count 6.19 K/ul (4.8-10.8)
[2023-03-15 03:30] LABS: Albumin Globulin Ratio 1.4 (0.9-2); Albumin Level 3.6 gm/dl (3.4-5.0); BUN Creatinine Ratio 21.6 (10-20); Bilirubin,Total 0.7 mg/dl (0.2-1.0); Calcium 8.5 mg/dl (8.6-10.3); Creatinine Clr Calc Pharmacy 97.5 ml/min; Est GFR (African American) 106.6 ml/min; Est GFR (Non-African American) 91.9 ml/min; Globulin 2.6 gm/dl (2.5-4.0); Magnesium 2.1 mg/dl (1.7-2.4); Potassium 3.9 mmol/L (3.5-5.1); Total Protein 6.2 gm/dl (6.0-8.3)
[2023-03-15] MEDS ORDERED: ASPIRIN 81 MG ECTAB PO SCH (09:00)
[2023-03-15] MEDS ORDERED: FUROSEMIDE 40 MG TAB PO SCH (09:00)
[2023-03-15] MEDS ORDERED: PANTOprazole 40 MG TAB PO SCH (09:00)
[2023-03-15] MEDS ORDERED: NICOTINE 21 MG/24 HR TDSY TD SCH (09:00)
[2023-03-15] MEDS ORDERED: ROSUVASTATIN CALCIUM 20 MG TAB PO SCH (09:00)
[2023-03-15] MEDS ORDERED: POTASSIUM CHLORIDE CRTAB 20 MEQ TABCR PO SCH (09:00)
[2023-03-15] MEDS ORDERED: METOPROLOL SUCC 25MG EXT REL TAB PO SCH (09:00)
[2023-03-15] MEDS ORDERED: SPIRONOLACTONE 25 MG TAB PO SCH (09:00)
--- NOTE | 2023-03-15 10:15 | Electrocardiogram Report ---
Test Reason : Blood Pressure : / mmHG Vent. Rate : 088 BPM Atrial Rate : 088 BPM P-R Int : 192 ms QRS Dur : 126 ms QT Int : 446 ms P-R-T Axes : 068 -31 083 degrees QTc Int : 539 ms Sinus rhythm with occasional Premature ventricular complexes Possible Left atrial enlargement Left axis deviation Right bundle branch block Nonspecific T wave abnormality Abnormal ECG When compared with ECG of 30-OCT-2022 13:13, Premature ventricular complexes are now Present Confirmed by Randolph Beckwith ([id number]) on 03/15/2023 10:15:50 AM Referred By: REFERRED SELF Confirmed By:Randolph Beckwith
--- NOTE | 2023-03-15 10:19 | Electrocardiogram Report ---
Test Reason : Blood Pressure : / mmHG Vent. Rate : 094 BPM Atrial Rate : 094 BPM P-R Int : 180 ms QRS Dur : 126 ms QT Int : 408 ms P-R-T Axes : 070 -22 172 degrees QTc Int : 510 ms Normal sinus rhythm Left atrial enlargement Right bundle branch block Nonspecific T wave abnormality Abnormal ECG When compared with ECG of 14-MAR-2023 18:35, (unconfirmed) Premature ventricular complexes are no longer Present Nonspecific T wave abnormality now evident in Inferior leads Confirmed by Randolph Beckwith ([id number]) on 03/15/2023 10:19:01 AM Referred By: REFERRED SELF Confirmed By:Randolph Beckwith
--- NOTE | 2023-03-15 10:37 | XCELERA ---
[id number] \\[id number]
[2023-03-15] MEDS ORDERED: PANTOprazole 40 MG in SYRINGE 0 ML IV SCH (11:00)
--- NOTE | 2023-03-15 11:38 | Cardiology Consultation ---
Date of Consultation March 15, 2023 Assessment & Plan (1) Chest pain: -essentially normal high sensitivity troponin. -no acute EKG changes. -noncardiac chest pain. -no further cardiac evaluation necessary. (2) Cardiomyopathy: -nonischemic etiology. -LVEF stable, 15-20%. -continue medical management. -consider addition of Jardiance. (3) Chronic systolic (congestive) heart failure: -well compensated at this time. -continue medical management. History of Present Illness Attending Physician: Nora Nassar MD History of Present Illness Mr. Weeks is a 47-year-old male admitted yesterday with an atypical chest pain syndrome. This consultation was ordered to assist in his management. Of note, patient typically follows with Dr. Mcnulty in the outpatient setting. The patient was in his usual state of until the day of presentation. He was at his sister's house helping with some chores. As he was leaving, he developed discomfort in the interscapular region and some associated dizziness. There were no symptoms such as shortness of breath, nausea, vomiting, diaphoresis, or radiation of the discomfort. He presented to the emergency room for further care. On arrival here, initial troponin was 22.8. EKG showed a right bundle branch block with a nonspecific T-wave abnormality. No acute changes. His discomfort spontaneously resolved. He did undergo a cardiac catheterization in June 2019 which showed no coronary artery disease. He does carry a history of a nonischemic cardiomyopathy with ejection fraction of less than 20%. He does follow in the CHF clinic. Currently, patient is resting comfortably in bed without complaints. Past medical and surgical history 1. Hypertension 2. Hypercholesterolemia 3. Nonischemic uptwdtzuczdqon-31-59% 4. No coronary artery disease-June 2019 5. Moderate to severe tricuspid regurgitation 6. Mild aortic insufficiency 7. Mild mitral regurgitation 8. Paroxysmal SVT 9. Diabetes mellitus 10. Bipolar disorder 11. Cholecystectomy 12. L5/S1 diskectomy-2015 Social history Homeless, but lives with family. Smokes 1/2 pack cigarettes daily. No alcohol Family history Father at age 50 from an [place] Mother at 72 from an [place] Review of systems A 10 point review systems undertaken and negative except for that described above. Allergies Allergy/AdvReac Type Severity Reaction Status Date / Time Sulfa (Sulfonamide Allergy Intermediate Hives Verified 11/19/22 15:38 Antibiotics) Home Medications Medication Instructions Recorded Confirmed Type albuterol sulfate 90 mcg/actuation 2 puff inhalation Q6H PRN 11/01/22 03/14/23 Rx aerosol inhaler (Ventolin HFA) shortness of breath or wheezing #8.5 grams aspirin 81 mg tablet,delayed 81 mg PO DAILY #30 tabs 11/01/22 03/14/23 Rx release nicotine 21 mg/24 hr daily 21 mg transdermal QAM #14 ea 11/01/22 03/14/23 Rx transdermal patch (Nicoderm CQ) nitroglycerin 0.4 mg sublingual 0.4 mg sublingual Q5M PRN chest 11/01/22 03/14/23 Rx tablet (Nitrostat) pain #30 tabs pantoprazole 40 mg tablet,delayed 40 mg PO QAM #30 tabs 11/01/22 03/14/23 Rx release rosuvastatin 20 mg tablet (Crestor) 20 mg PO QAM #30 tabs 11/01/22 03/14/23 Rx furosemide 40 mg tablet (Lasix) 40 mg PO QAM #30 tabs 11/19/22 03/14/23 Rx metoprolol succinate 25 mg 25 mg PO QAM #30 tabs 11/19/22 03/14/23 Rx tablet,extended release 24 hr potassium chloride 20 mEq 20 meq PO QAM #30 tabs 11/19/22 03/14/23 Rx tablet,extended release(part/cryst) sacubitril 49 mg-valsartan 51 mg 1 tab PO BID #60 tabs 11/19/22 03/14/23 Rx tablet (Entresto) spironolactone 25 mg tablet 25 mg PO QAM #90 tabs 11/19/22 03/14/23 Rx Patient History Medical History Ventricular tachycardia Tobacco abuse Cardiomyopathy Elevated troponin I level Chest pain High cholesterol Hypertension History of heart attack Family History Father Myocardial infarction Mother Stroke Brother Cirrhosis Sister Hypertension Social History Smoking Status: Former smoker Tobacco Type: Cigarettes Cigarettes Per Day: 1/2 pack; Second Hand Exposure: Yes; Do You Dip or Chew Tobacco: No; Hx Alcohol Use: No Hx Substance Use: No Preferred Language: Uzbek Communication Ability: Effective 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 HEENT exam is negative. Neck is supple with full carotid upstrokes. There are no carotid bruits. Jugular is pressure is flat at 90. There is no thyromegaly. Cardiovascular exam reveals a regular rhythm with distant heart sounds. No obvious murmurs. Lungs are clear without rales, rhonchi, or wheezes. Abdomen is soft without bruits. Extremities reveal intact radial artery pulses bilaterally. There is no peripheral edema. Results & Data Vital Signs (Past 12 Hours) Vital Signs Temp Pulse Pulse Resp BP Pulse Ox O2 Del Method 03/15/23 07:49 36.5 C 69 18 114/78 97 Room Air 03/15/23 03:03 36.5 C 68 20 110/76 98 Room Air 03/15/23 00:58 78 22 99 Room Air 03/15/23 00:23 85 03/15/23 00:20 Room Air Laboratory Results CBC notes hemoglobin 13.7, hematocrit 43.4, white count 6.2, platelet count [id number]. Electrolytes note a sodium of 134, potassium 3.9, chloride 104, bicarb 25, BUN 21, creatinine 0.97, glucose of 118. Initial high sensitivity troponin was 22.8 with follow-up values of 25.1, 21.8, and 19.6. BNP is elevated, but stable, at 2040. Diagnostic Findings Echocardiogram notes severe left ventricular dysfunction with global hypokinesis. Left ventricular ejection fraction is 15-20%. There was mild aortic insufficiency and moderate to severe tricuspid regurgitation. Compared with the study performed in October 2022, no significant change. EKG notes sinus rhythm with a right bundle-branch block and nonspecific T-wave abnormality. Chest x-ray notes cardiomegaly but no acute disease. PG Care Time/CCT Total # of Minutes Spent Total Time Spent with Patient: Total time spent is greater than 50% in coordination of care (as documented) at patient's floor/unit and/or counseling patient: Coding Level of Care Code 81825 OFFICE CONSULT LVL Diagnoses Chest pain R07.2 Chest pain type: precordial pain Cardiomyopathy I42.9 Chronic systolic (congestive) heart failure I50.22 (1) Chest pain Chest pain type: precordial pain Qualified Code(s): R07.2 - Precordial pain
[2023-03-15] MEDS ORDERED: predniSONE 20 MG TAB PO SCH (12:00)
--- NOTE | 2023-03-15 12:37 | Discharge Summary ---
Date of Service March 15, 2023 Admission HPI Per Admitting Provider Eagle Weeks is a 47 yo M with extensive cardiac PMH including HFrEF (EF 15- 20% in 09/2022), cardiomyopathy, CAD, MR, TR, HTN, HLD, myocardial infarction x2, tobacco use, and medication nonadherence who presented to the [facility] ED on 03/14/23 via EMS with complaints of dizziness and pain between his shoulder blades. Per the ED staff, the back pain is similar to symptoms experienced with his previous MS's. He remained stable in the ED. Labs were significant for a potassium of 3.4 initial high sen trop of 22, BNP of 2040 (lower than previous admissions), chest xray was read as "1. Cardiomegaly without acute process. 2. Mild pulmonary emphysema redemonstrated. ". The patient was reportedly given 324 PO aspirin and 1 dose of SL nitroglycerin by EMS in route. He was given an additional 2 doses of 0.4 mg SL nitroglycerine and ordered 20 mg IV lasix in the ED prior to admission. At the time of the exam the patient was lying in bed in mild distress. He states that he went to his Sister's house a few hours ago to help her with one of her sick pets. While at her home he started to develop back pain located between the shoulder blades and dizziness. He denies the sensation that the room is spinning and denies other focal neurologic defects. Shortly after the initial symptoms he also developed epigastric pain. When asked, he states he forgot to take his medications this am and has not had anything to eat or drink. He has not smoked in approximately 9 days and is trying his best to continue smoking cessation. He does smoke marijuana a few times weekly when his chronic back pain is severe. When asked, he states that the nitroglycerine he received by EMS and the ED may have improved the symptoms a little, but they have been constant for at least 2 hours prior to ED arrival. He does have a hx of reflux, he denies recent alcohol use. He also denies recent fever, chills, cough, dysuria, hematuria, melena, LE swelling, and recent trauma. He did have one episdoe of nausea and non-bloody emesis prior to EMS arrival. He is a full code and would want his son to make medical decisions for him if he cannot make them himself. Please refer to Dr. Salas's attestation for any changes to the treatment plan Admission Exam Per Admitting Provider General: In mild distress, stated age, well-nourished, non-toxic appearing HEENT: Normocephalic, atraumatic, no scleral icterus, pupils around round, symmetrical, and reactive to light, moist mucus membranes, negative JVD, trachea midline, no thyromegaly Chest/Pulm: No respiratory distress, symmetrical chest expansion, scattered expiratory wheezing Cardiac: RRR, 3/6 systolic murmur noted Abdomen: Negative for ascites and bruising, normoactive bowel sounds, soft, significantly tender to palpation in the epigastric region Musculoskeletal: Symmetrical and without signs of acute trauma, upper and lower extremities with full ROM, no atrophy, spasticity, or flaccidity Extremities: Radial, dorsalis pedis, and posterior tibial pulses are intact and symmetrical, no edema noted in the BL LE's Skin: Warm, dry, no rashes , lesions, or scars noted Neuro: Alert and oriented to person, place, month, year, and president, no focal defects, no tremors noted Psych: No acute distress, calm and cooperative during the exam Principal Diagnosis Back pain, chest pain, abdominal pain, dizziness, respiratory illness, COPD exacerbation Discharge Exam General: Nontoxic-appearing, NAD Cardiovascular: RRR, no obvious murmurs, distant heart sounds Pulmonary: Diffuse expiratory wheezing Abdomen: Soft, NT/ND, no guarding Extremities: Moving all extremities, no pedal edema Integumentary: No suspicious rash or lesion on exposed skin Neurologic: AAOx3, no focal deficits Psychiatric: Appropriate mood/affect Discharge Data Allergies Allergy/AdvReac Type Severity Reaction Status Date / Time Sulfa (Sulfonamide Allergy Intermediate Hives Verified 11/19/22 15:38 Antibiotics) Consultations 03/14/23 19:54 ED Decision to Admit Stat 03/14/23 20:25 Consult Cardiology Routine 03/15/23 12:36 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 [facility] 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 Routine Hospital Course (1) Back pain: -Presented to the ED via EMS with acute onset of back pain between his shoulder blades and dizziness which began approximately 3 hours prior to ED arrival, also developed associated epigastric pain -Patient states that back pain is similar to previous MS's -Received 324 mg Aspirin and 3 doses of 0.4 mg SL nitroglycerine prior to admission -High sen trop elevated at 22-->25-->22-->20-->15 -BNP elevated at 2040 but this is lower than previous admissions -Suspect his abdominal pain to be associated with gastritis, this could be contributing to his back pain as well -ECG with RBBB and nonspecific T-wave abnormality without acute changes -Continued metoprolol -Held lasix - resumed on discharge -Given famotidine and Tylenol inpatient -Continued PPI -TTE with no changes from Oct 2022 - EF 15 to 20%, global hypokinesis of left ventricle, mild aortic regurgitation, moderate to severe tricuspid regurgitation -Cardiology consulted - [place] to be noncardiac chest pain. consider addition of Jardiance - to be addressed outpatient (2) Wheezing: Patient with notable wheezing on examination day of discharge Denies history of COPD or emphysema, has emphysematous changes on chest x-ray and tobacco use historysuspect COPD and current symptomatology may be related to an exacerbation secondary to viral illness as patient does note recent coughing Started on prednisone today and discharged on a course of prednisone 40 mg daily to complete a total of 5 days of treatment Recommend outpatient PFTs/spirometry when back to baseline to further evaluate (3) Dizziness: -Likely due to his abdominal/chest pain -Has resolved prior to admission -Patient has a long hx of drug abuse -UDS positive for amphetamine/meth screen with confirmation pending, positive for THC screen (4) Epigastric pain: -Continue medications for gastritis/reflux and monitor for improvement -Continue home pantoprazole (5) Hypokalemia: -Noted to be 3.4 on arrival and improved with supplementation -Continue home potassium with lasix on discharge -trend outpatient (6) Hypertension: -stable -Continue metoprolol (7) CAD (coronary artery disease): -Continue aspirin, metoprolol (8) Cardiomyopathy: -Currently euvolemic on exam -Continue entresto -Resume lasix and spironolactone -Patient to have follow up with heart failure clinic - nurse navigator message sent -See above (9) Tobacco abuse: -Nicotine patch -See above Total Time Total Time Spent Total Time Spent (In Minutes): 45 Total Time Includes: Examination of the Patient, Discharge Planning, Medication Reconciliation and Communication With Other Providers Discharge Plan Discharge Items Patient Disposition: Home - Self-Care Reason For Visit: BACK/CHEST/ABD PAIN Discharge Diagnosis: Back pain, chest pain, abdominal pain, dizziness, respiratory illness, COPD exacerbation Activity: Resume your previous activity Non-emergency contact: Primary Care Provider and Support Representative Call non-emergency contact if: your symptoms worsen Follow-up/Referrals: PCP,NO [Primary Care Provider] - Diet: Heart Healthy Addtl Attending Provider Instructions: You were admitted with a constellation of symptoms including back pain, abdominal pain, chest pain, and dizziness. He had evaluation to look for possible heart attack and other possible reasons for your symptoms. Your blood work and your chest x-ray overall were unremarkable. Your echocardiogram was stable compared to prior check in October. It seems the most likely reason for your symptoms is a viral illnessCOVID was tested and negative. It is highly likely that you have emphysema/COPD and your respiratory viral illness is triggering worsening symptoms of underlying emphysema/COPD. Recommend a course of oral prednisone for 5 daysfirst dose given while you are in the hospital. 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 Please ensure you have follow-up with your PCP. Recommend when you feel back to your normal baseline to have lung testing performed to formally assess for emphysema/COPD as you may be a candidate for inhalers. Try to decrease your tobacco use. Ensure follow-up heart failure clinic - if you do not hear from them early next week to coordinate this appointment, please call your PCP. Otherwise keep all your medications as previously prescribed. Pending Studies at Discharge: Yes Studies:: Final results of UDS Stand-Alone Forms: My [facility], Smoking Cessation Medications and DC Order Prescriptions: New prednisone 20 mg tablet 40 mg PO DAILY 4 Days Qty: 8 0RF Rx Instructions: Start 03/16/23 Continued furosemide [Lasix] 40 mg tablet 40 mg PO QAM Qty: 30 3RF metoprolol succinate 25 mg tablet extended release 24 hr 25 mg PO QAM Qty: 30 1RF potassium chloride 20 mEq tablet,ER particles/crystals 20 meq PO QAM Qty: 30 0RF Entresto 49-51 mg tablet 1 tab PO BID Qty: 60 1RF spironolactone 25 mg tablet 25 mg PO QAM Qty: 90 3RF albuterol sulfate [Ventolin HFA] 90 mcg/actuation Hfa Aerosol Inhaler 2 puff inhalation Q6H PRN (Reason: shortness of breath or wheezing) Qty: 8.5 0RF nicotine [Nicoderm CQ] 21 mg/24 hr Patch 24 Hour 21 mg transdermal QAM Qty: 14 0RF Rx Instructions: Can buy OTC nitroglycerin [Nitrostat] 0.4 mg Tablet, Sublingual 0.4 mg sublingual Q5M PRN (Reason: chest pain) Qty: 30 0RF Rx Instructions: x 3 doses and call your doctor or go to the hospital rosuvastatin [Crestor] 20 mg Tablet 20 mg PO QAM Qty: 30 0RF aspirin 81 mg Tablet,Delayed Release (Dr/Ec) 81 mg PO DAILY Qty: 30 0RF pantoprazole 40 mg Tablet,Delayed Release (Dr/Ec) 40 mg PO QAM Qty: 30 0RF Discharge Orders: Discharge Order- CHF (Routine); Ordered 03/15/23 Ordered By: Nora Nassar Admission Data Admit Date/Time: 03/14/23 20:23 Attending Provider: Nora Nassar Admit Provider: Noel Salas Primary Care Provider: PCP,NO Other Providers: Noel Salas; Randolph Beckwith Other Interventions: Discharge Summary Assessment (RN) Last Done: 03/15/23 13:23 Coding Level of Care Code 80137 INP/OBS DISCH >30 MIN Diagnoses Back pain M54.9 Wheezing R06.2 Dizziness R42 Epigastric pain R10.13 Hypokalemia E87.6 Hypertension I10 CAD (coronary artery disease) I25.10 Associated angina: unspecified whether angina present Coronary Disease-Associated Artery/Lesion type: unspecified vessel or lesion type [place] vs. transplanted heart: unspecified whether [place] or transplanted heart Cardiomyopathy I42.9 Tobacco abuse Z72.0
[2023-03-15] MEDS ORDERED: predniSONE 20 MG TAB PO ONE (18:15)
[2023-03-17 15:12] LABS: Amphetamine Urine, Confirm 900 ng/mL (<250); Marijuana Quant, GCMS Urine 743 ng/mL (<5); Methamphetamine, Ur Confirm 6730 ng/mL (<250)
== END 2023-03-15 19:13 | disposition home or self-care (01) ==
LOC: ED 18:26 → 4W 20:23 → INTOOBSV 20:23 → SUATTDRO 20:23 → 4W 22:28
DX: J44.1 Chronic obstructive pulmonary disease with (acute) exacerbation; I25.10 Atherosclerotic heart disease of native coronary artery without angina pectoris; B97.89 Other viral agents as the cause of diseases classified elsewhere; I50.20 Unspecified systolic (congestive) heart failure; Z79.82 Long term (current) use of aspirin; R42 Dizziness and giddiness; E87.6 Hypokalemia; I25.2 Old myocardial infarction; J06.9 Acute upper respiratory infection, unspecified; E78.5 Hyperlipidemia, unspecified; R94.31 Abnormal electrocardiogram [ECG] [EKG]; Z88.2 Allergy status to sulfonamides; I11.0 Hypertensive heart disease with heart failure; R10.13 Epigastric pain; Z82.49 Family history of ischemic heart disease and other diseases of the circulatory system; Z79.899 Other long term (current) drug therapy; R79.89 Other specified abnormal findings of blood chemistry; R07.2 Precordial pain; I43 Cardiomyopathy in diseases classified elsewhere; M54.9 Dorsalgia, unspecified; Z87.891 Personal history of nicotine dependence; Z82.3 Family history of stroke

== ENCOUNTER 2023-06-12 03:18 | Inpatient (IN) ==
[2023-06-12] MEDS: HYDROmorphone INJ 0.5 MG/0.5 ML SYR IV STA (03:33)
[2023-06-12] MEDS: ONDANSETRON INJ 2 MG/ML 2 ML VIAL IV STA (03:33)
[2023-06-12] MEDS: SODIUM CHLORIDE 0.9% 1,000 ML IV ONE ×2 (03:33→04:44)
[2023-06-12 03:47] LABS: iSTAT Creatinine 1.4 mg/dl (0.6-1.3); iSTAT Hemoglobin 18.7 g/dl (14.0-18.0); iSTAT Potassium 4.1 mmol/L (3.3-5.0)
--- NOTE | 2023-06-12 03:49 | Emergency Department Note ---
Impression & Plan Abdominal pain, epigastric, Acute hyponatremia, Acute dehydration, Hypovolemic shock Admit to the [facility] ED Provider Note NAME: JUDY READ AGE: 47 SEX: Male INFORMANT: Patient and EMS ED PROVIDER(S): Sridevi Rahman DO CHIEF COMPLAINT: Epigastric abdominal pain and nausea PLAN: Disposition: Admit to the [facility] MEDICAL DECISION MAKING: This is a 47-year-old male patient who presents to the emergency department with epigastric abdominal pain and nausea. The patient had been at [facility] 24 hours ago with the same complaint where they obtain laboratory studies but were not doing anything else according to the patient so he left against their advice. He called EMS to his home tonight because symptoms were worsening and he was now having chest discomfort radiating through to his back. Patient also describes decreased urinary output and that his urine had become darker. Patient describes a past medical history of heart problems. Patient states that his symptoms began yesterday afternoon with epigastric abdominal pain and a runny nose. Laboratory studies revealed a negative bio fire test with no leukocytosis. Patient was significantly hemoconcentrated with a hemoglobin greater than 18. Sodium was low at 129. BUN was elevated at 28. Glucose was 112. Total bilirubin was elevated at 1.5 AST was 157 and ALT was 181. On physical exam, the patient had significant dry mucous membranes with mottling of his skin. There was very poor skin turgor. He had acute epigastric abdominal pain with palpation. Initially, there was concern for sepsis and the patient had a lactate greater than 4. He was treated empirically with cefepime. On presentation, the patient's initial concern was for epigastric abdominal pain shooting through to his back. He underwent CT angiogram of the chest and abdomen to rule out aortic dissection. This was negative. Patient received 2.5 L of IV crystalloid which dramatically improved his mottling of his skin and improved his mucous membranes. Patient does admit that he had not been drinking very much over the past 48 hours. He received IV analgesia and IV antiemetics for his pain and nausea. [facility] care. Care[facility]management [facility] with[facility] Triage Nursing notes: Reviewed and agree with them. Vital Signs: reviewed and remarkable for hypertension Additional History obtained from: EMS Chronic Medical/Social Conditions affecting care: Hypertension and heart disease Differential Diagnosis: Cardiac ischemia, aortic dissection, abdominal aortic aneurysm, cystitis, sepsis, kidney stone, hypovolemic shock Diagnostics, independently interpreted by me: ECG: Normal sinus rhythm at a rate of 93. There is ST segment depression in the inferior and lateral leads Cardiac Monitoring: Normal sinus rhythm at a rate of 94 Imaging studies: CT scan of the chest: As per stat rad CT scan of the abdomen/pelvis: As per stat rad HPI: The patient had been at [facility] 24 hours ago with the same complaint where they obtain laboratory studies but were not doing anything else according to the patient so he left against their advice. He called EMS to his home tonight because symptoms were worsening and he was now having chest discomfort radiating through to his back. Patient also describes decreased urinary output and that his urine had become darker. Patient describes a past medical history of heart problems. Patient states that his symptoms began yesterday afternoon with epigastric abdominal pain and a runny nose. PAST MEDICAL HISTORY: See Below, PAST SURGICAL HISTORY: See Below, SOCIAL HISTORY: See Below, HOME MEDICATIONS: See list ALLERGIES: See list VITALS: See Below PHYSICAL EXAMINATION: HEENT: Head - normocephalic and atraumatic. Pupils are equal, round, and reactive to light. Extraocular eye muscles are intact, and sclera are anicteric. Nose - moist nasal mucosa without discharge. Mouth - moist buccal mucosa. Oropharynx is nonerythematous and there is no tonsillar exudate or edema noted. Neck: Supple; no JVD, nuchal rigidity, cervical lymphadenopathy, or auscultated bruits. Heart: Regular rate and rhythm. There is a normal S1 and S2 with no murmurs, clicks, or gallops appreciated. Lungs: Clear to auscultation bilaterally with no wheezes, rales, or rhonchi. Abdomen: Soft, moderate pain to palpation in the epigastrium. There are no palpable pulsatile masses or hepatosplenomegaly. There is no guarding, rigidity, or rebound noted. Extremities: No evidence of cyanosis, clubbing, or edema. There are easily palpable peripheral pulses. Slow capillary refill Skin: warm and dry with poor turgor and no rashes. Emergency department course: The patient was evaluated in room B-1. A complete history and physical was performed. A second IV lock was initiated. The patient was bolused with a liter of normal saline solution as his i-STAT hemoglobin was 18. Creatinine was 1.4. Patient began to vomit was given a dose of IV Zofran. He complained of fairly severe epigastric pain was given a dose of IV Dilaudid. He went for a stat CT scan of the chest and abdomen/pelvis to rule out aortic dissection. Bio fire testing was obtained. The patient was catheterized for urine specimen. patient was given an IV dose of cefepime. He was given additional 1500 cc of saline out of concern that the patient may be septic. Upon repeat evaluation, the mottling of his skin has improved as has his capillary refill. Patient is resting more comfortably at this time. I discussed the case with the [facility] Hospitalist and they will evaluate for further inpatient care. I have personally spent greater than 75 minutes of critical care time in the direct management of this patient. This includes bedside care, interpretation of diagnostic studies, and testing, discussion with consultants, patient, and family members, and other required patient management activities. This 75 minutes is in excess of all separately billable procedures. Past Med/Surg History Medical History Ventricular tachycardia Tobacco abuse Cardiomyopathy Elevated troponin I level Chest pain High cholesterol Hypertension History of heart attack Family History Father Myocardial infarction Mother Stroke Brother Cirrhosis Sister Hypertension Social History Smoking Status: Former smoker Tobacco Type: Cigarettes Cigarettes Per Day: 1/2 pack; Second Hand Exposure: Yes; Do You Dip or Chew Tobacco: No; Hx Alcohol Use: No Hx Substance Use: No Preferred Language: Ghanaian Communication Ability: Effective Children'S Service Worker Required: No Beliefs That Will Affect Care: None Current Living Situation: Family Current Living Situation Comment: staying on families couch Feels Safe at Home: Yes Assistive Devices: None Allergies Allergies Allergy/AdvReac Type Severity Reaction Status Date / Time Sulfa (Sulfonamide Allergy Intermediate Hives Verified 11/19/22 15:38 Antibiotics) Home Meds Previous Rx's Medication Instructions Recorded albuterol sulfate 90 mcg/actuation 2 puff inhalation Q6H PRN 11/01/22 aerosol inhaler (Ventolin HFA) shortness of breath or wheezing #8.5 grams aspirin 81 mg tablet,delayed 81 mg PO DAILY #30 tabs 11/01/22 release nicotine 21 mg/24 hr daily 21 mg transdermal QAM #14 ea 11/01/22 transdermal patch (Nicoderm CQ) nitroglycerin 0.4 mg sublingual 0.4 mg sublingual Q5M PRN chest 11/01/22 tablet (Nitrostat) pain #30 tabs pantoprazole 40 mg tablet,delayed 40 mg PO QAM #30 tabs 11/01/22 release rosuvastatin 20 mg tablet (Crestor) 20 mg PO QAM #30 tabs 11/01/22 furosemide 40 mg tablet (Lasix) 40 mg PO QAM #30 tabs 11/19/22 metoprolol succinate 25 mg 25 mg PO QAM #30 tabs 11/19/22 tablet,extended release 24 hr potassium chloride 20 mEq 20 meq PO QAM #30 tabs 11/19/22 tablet,extended release(part/cryst) sacubitril 49 mg-valsartan 51 mg 1 tab PO BID #60 tabs 11/19/22 tablet (Entresto) spironolactone 25 mg tablet 25 mg PO QAM #90 tabs 11/19/22 Results & Data (ED) Vital Signs Vital Signs - 24 hr 06/12/23 03:18 06/12/23 03:24 06/12/23 03:59 Temperature 36.4 C L Temperature Source Oral Pulse Rate 92 H 94 H Pulse Rate [Radial] 87 Respiratory Rate 20 18 Respiratory Effort / Characteristics Non-Labored Spontaneous Non-Labored Spontaneous Respiratory Depth Normal Normal Respiratory Pattern Regular Regular Blood Pressure 143/103 H Blood Pressure [Right Arm] 139/102 H Blood Pressure Mean 116 Blood Pressure Mean [Right Arm] 114 Pulse Oximetry 100 100 Oxygen Delivery Method Room Air Room Air Sepsis Recent Fever Within 48 Hours No Sepsis New/Unexplained Change in Mental Status N/A Sepsis Action Taken by Nursing No Action Required 06/12/23 03:59 06/12/23 04:12 06/12/23 05:11 Temperature Temperature Source Pulse Rate Pulse Rate [Radial] 88 88 Respiratory Rate 18 18 Respiratory Effort / Characteristics Non-Labored Spontaneous Non-Labored Spontaneous Respiratory Depth Normal Normal Respiratory Pattern Regular Regular Blood Pressure Blood Pressure [Right Arm] 116/82 120/54 L Blood Pressure Mean Blood Pressure Mean [Right Arm] 93 76 Pulse Oximetry 100 98 100 Oxygen Delivery Method Room Air Room Air Room Air Sepsis Recent Fever Within 48 Hours Sepsis New/Unexplained Change in Mental Status Sepsis Action Taken by Nursing Laboratory Data 06/12/23 03:40 06/12/23 04:07 Lab Results 06/12/23 06/12/23 06/12/23 Range/Units 03:35 03:38 03:40 WBC 9.45 (4.8-10.8) K/ul RBC 5.56 (4.70-6.10) M/uL Hgb 16.6 (14.0-18.0) g/dl POC Hgb 18.7 H (14.0-18.0) g/dl Hct 50.8 (42.0-52.0) % POC Hct 55 H (42-52) % MCV 91.4 (80.0-100.0) fL MCH 29.9 (25.0-34.0) pg MCHC 32.7 (32.0-36.0) g/dL RDW Std Deviation 49.1 H (36.4-46.3) fL RDW Coeff of Nicolás 14.8 H (11.5-14.5) % Plt Count 335 (130-400) K/uL MPV 10.3 (9.4-12.4) fL Immature Gran % (Auto) 0.3 % Neut % (Auto) 55.5 % Lymph % (Auto) 32.4 % [place] % (Auto) 10.4 % Eos % (Auto) 0.6 % Baso % (Auto) 0.8 % Neut # (Auto) 5.24 (1.40-6.50) K/uL Lymph # (Auto) 3.06 (1.20-3.40) K/uL [place] # (Auto) 0.98 H (0.11-0.59) K/uL Eos # (Auto) 0.06 (0.00-0.50) K/uL Baso # (Auto) 0.08 (0.00-0.20) K/uL Immature Gran # (Auto) 0.03 (0.01-0.20) K/uL POC Sodium 131 L (135-144) mmol/L Sodium (136-145) mmol/L POC Potassium 4.1 (3.3-5.0) mmol/L Potassium (3.5-5.1) mmol/L POC Chloride 93 L (101-112) mmol/L Chloride (98-107) mmol/L Carbon Dioxide (21-32) mmol/L POC Total CO2 29 (24-31) mmol/L Anion Gap (3-11) POC Anion Gap 14.0 L (16-25) mmol/L POC BUN 33 H (7-18) mg/dl BUN (6-23) mg/dl Creatinine (0.6-1.4) mg/dl POC Creatinine 1.4 H (0.6-1.3) mg/dl Est Cr Clr Drug Dosing ml/min Est GFR ( Amer) ml/min Est GFR (Non-Af Amer) ml/min BUN/Creatinine Ratio (10-20) Glucose (70-99(Fasting)) mg/dl POC Glucose (other) 105 H (70-99) mg/dl Lactate 4.2 H* (0.4-2.0) mmol/L Calcium (8.6-10.3) mg/dl POC Ioniz Calcium Krzysztof 1.00 L (1.12-1.32) mmol/l Magnesium (1.7-2.4) mg/dl Total Bilirubin (0.2-1.0) mg/dl Direct Bilirubin (0-0.2) mg/dl AST (13-39) U/L ALT (7-52) U/L Alkaline Phosphatase (34-104) U/L Troponin I High Sens (0-20) pg/ml B-Natriuretic Peptide (0-100) pg/ml Total Protein (6.0-8.3) gm/dl Albumin (3.4-5.0) gm/dl Lipase (11-82) U/L Procalcitonin 0.03 (0-0.5) ng/ml Urine Color Urine Appearance (Clear) Urine pH (4.5-7.5) Ur Specific [place] (1.000-1.030) Urine Protein (Negative) Urine Glucose (UA) (Negative) Urine Ketones (Negative) Urine Blood (Negative) Urine Nitrite (Negative) Urine Bilirubin (Negative) Urine Urobilinogen (Negative) Ur Leukocyte Esterase (Negative) Urine WBC (Auto) (0-5) /hpf Urine RBC (Auto) (0-2) /hpf U Hyaline Cast (Auto) (0-2) /lpf U Epithel Cells (Auto) (0-2) /hpf Urine Bacteria (Auto) (None Seen) Adenovirus (PCR) (NotDetected) B. pertussis DNA (PCR) (NotDetected) B.parapertussis DNA PCR (NotDetected) C. pneumoniae DNA (PCR) (NotDetected) Coronavirus OC43 (PCR) (NotDetected) Coronavirus HKU1 (PCR) (NotDetected) Coronavirus 229E (PCR) (NotDetected) SARS-CoV-2 (PCR) (NotDetected) Coronavirus NL63 (PCR) (NotDetected) Human Metapneumovir PCR (NotDetected) Influenza Type A (PCR) (NotDetected) Influenza Type B (PCR) (NotDetected) M. pneumoniae (PCR) (NotDetected) Parainfluenza 1 (PCR) (NotDetected) Parainfluenza 2 (PCR) (NotDetected) Parainfluenza 3 (PCR) (NotDetected) Parainfluenza 4 (PCR) (NotDetected) RSV (PCR) (NotDetected) Entero/Rhino (PCR) (NotDetected) 06/12/23 06/12/23 06/12/23 Range/Units 04:07 04:08 05:10 WBC (4.8-10.8) K/ul RBC (4.70-6.10) M/uL Hgb (14.0-18.0) g/dl POC Hgb (14.0-18.0) g/dl Hct (42.0-52.0) % POC Hct (42-52) % MCV (80.0-100.0) fL MCH (25.0-34.0) pg MCHC (32.0-36.0) g/dL RDW Std Deviation (36.4-46.3) fL RDW Coeff of Nicolás (11.5-14.5) % Plt Count (130-400) K/uL MPV (9.4-12.4) fL Immature Gran % (Auto) % Neut % (Auto) % Lymph % (Auto) % [place] % (Auto) % Eos % (Auto) % Baso % (Auto) % Neut # (Auto) (1.40-6.50) K/uL Lymph # (Auto) (1.20-3.40) K/uL [place] # (Auto) (0.11-0.59) K/uL Eos # (Auto) (0.00-0.50) K/uL Baso # (Auto) (0.00-0.20) K/uL Immature Gran # (Auto) (0.01-0.20) K/uL POC Sodium (135-144) mmol/L Sodium 129 L (136-145) mmol/L POC Potassium (3.3-5.0) mmol/L Potassium 3.9 (3.5-5.1) mmol/L POC Chloride (101-112) mmol/L Chloride 95 L (98-107) mmol/L Carbon Dioxide 24 (21-32) mmol/L POC Total CO2 (24-31) mmol/L Anion Gap 10 (3-11) POC Anion Gap (16-25) mmol/L POC BUN (7-18) mg/dl BUN 28 H (6-23) mg/dl Creatinine 1.23 (0.6-1.4) mg/dl POC Creatinine (0.6-1.3) mg/dl Est Cr Clr Drug Dosing 80.6 ml/min Est GFR ( Amer) 80.0 ml/min Est GFR (Non-Af Amer) 69.0 ml/min BUN/Creatinine Ratio 22.8 H (10-20) Glucose 112 H (70-99(Fasting)) mg/dl POC Glucose (other) (70-99) mg/dl Lactate (0.4-2.0) mmol/L Calcium 8.1 L (8.6-10.3) mg/dl POC Ioniz Calcium Krzysztof (1.12-1.32) mmol/l Magnesium 1.8 (1.7-2.4) mg/dl Total Bilirubin 1.5 H (0.2-1.0) mg/dl Direct Bilirubin 0.6 H (0-0.2) mg/dl AST 157 H (13-39) U/L ALT 181 H (7-52) U/L Alkaline Phosphatase 69 (34-104) U/L Troponin I High Sens 22.8 H (0-20) pg/ml B-Natriuretic Peptide (0-100) pg/ml Total Protein 5.4 L (6.0-8.3) gm/dl Albumin 3.1 L (3.4-5.0) gm/dl Lipase (11-82) U/L Procalcitonin (0-0.5) ng/ml Urine Color Dark Yellow Urine Appearance Clear (Clear) Urine pH 5.5 (4.5-7.5) Ur Specific [place] > 1.045 H (1.000-1.030) Urine Protein 3+ H (Negative) Urine Glucose (UA) Negative (Negative) Urine Ketones Negative (Negative) Urine Blood Negative (Negative) Urine Nitrite Negative (Negative) Urine Bilirubin 1+ H (Negative) Urine Urobilinogen Positive H (Negative) Ur Leukocyte Esterase Negative (Negative) Urine WBC (Auto) 0-5 (0-5) /hpf Urine RBC (Auto) 0-2 (0-2) /hpf U Hyaline Cast (Auto) 0-2 (0-2) /lpf U Epithel Cells (Auto) 0-2 (0-2) /hpf Urine Bacteria (Auto) None Seen (None Seen) Adenovirus (PCR) Not Detected (NotDetected) B. pertussis DNA (PCR) Not Detected (NotDetected) B.parapertussis DNA PCR Not Detected (NotDetected) C. pneumoniae DNA (PCR) Not Detected (NotDetected) Coronavirus OC43 (PCR) Not Detected (NotDetected) Coronavirus HKU1 (PCR) Not Detected (NotDetected) Coronavirus 229E (PCR) Not Detected (NotDetected) SARS-CoV-2 (PCR) Not Detected (NotDetected) Coronavirus NL63 (PCR) Not Detected (NotDetected) Human Metapneumovir PCR Not Detected (NotDetected) Influenza Type A (PCR) Not Detected (NotDetected) Influenza Type B (PCR) Not Detected (NotDetected) M. pneumoniae (PCR) Not Detected (NotDetected) Parainfluenza 1 (PCR) Not Detected (NotDetected) Parainfluenza 2 (PCR) Not Detected (NotDetected) Parainfluenza 3 (PCR) Not Detected (NotDetected) Parainfluenza 4 (PCR) Not Detected (NotDetected) RSV (PCR) Not Detected (NotDetected) Entero/Rhino (PCR) Not Detected (NotDetected) 06/12/23 06/12/23 Range/Units 05:48 05:51 WBC (4.8-10.8) K/ul RBC (4.70-6.10) M/uL Hgb (14.0-18.0) g/dl POC Hgb (14.0-18.0) g/dl Hct (42.0-52.0) % POC Hct (42-52) % MCV (80.0-100.0) fL MCH (25.0-34.0) pg MCHC (32.0-36.0) g/dL RDW Std Deviation (36.4-46.3) fL RDW Coeff of Nicolás (11.5-14.5) % Plt Count (130-400) K/uL MPV (9.4-12.4) fL Immature Gran % (Auto) % Neut % (Auto) % Lymph % (Auto) % [place] % (Auto) % Eos % (Auto) % Baso % (Auto) % Neut # (Auto) (1.40-6.50) K/uL Lymph # (Auto) (1.20-3.40) K/uL [place] # (Auto) (0.11-0.59) K/uL Eos # (Auto) (0.00-0.50) K/uL Baso # (Auto) (0.00-0.20) K/uL Immature Gran # (Auto) (0.01-0.20) K/uL POC Sodium (135-144) mmol/L Sodium (136-145) mmol/L POC Potassium (3.3-5.0) mmol/L Potassium (3.5-5.1) mmol/L POC Chloride (101-112) mmol/L Chloride (98-107) mmol/L Carbon Dioxide (21-32) mmol/L POC Total CO2 (24-31) mmol/L Anion Gap (3-11) POC Anion Gap (16-25) mmol/L POC BUN (7-18) mg/dl BUN (6-23) mg/dl Creatinine (0.6-1.4) mg/dl POC Creatinine (0.6-1.3) mg/dl Est Cr Clr Drug Dosing ml/min Est GFR ( Amer) ml/min Est GFR (Non-Af Amer) ml/min BUN/Creatinine Ratio (10-20) Glucose (70-99(Fasting)) mg/dl POC Glucose (other) (70-99) mg/dl Lactate 3.7 H* (0.4-2.0) mmol/L Calcium (8.6-10.3) mg/dl POC Ioniz Calcium Krzysztof (1.12-1.32) mmol/l Magnesium (1.7-2.4) mg/dl Total Bilirubin (0.2-1.0) mg/dl Direct Bilirubin (0-0.2) mg/dl AST (13-39) U/L ALT (7-52) U/L Alkaline Phosphatase (34-104) U/L Troponin I High Sens 22.8 H (0-20) pg/ml B-Natriuretic Peptide 2585 H (0-100) pg/ml Total Protein (6.0-8.3) gm/dl Albumin (3.4-5.0) gm/dl Lipase 6 L (11-82) U/L Procalcitonin (0-0.5) ng/ml Urine Color Urine Appearance (Clear) Urine pH (4.5-7.5) Ur Specific [place] (1.000-1.030) Urine Protein (Negative) Urine Glucose (UA) (Negative) Urine Ketones (Negative) Urine Blood (Negative) Urine Nitrite (Negative) Urine Bilirubin (Negative) Urine Urobilinogen (Negative) Ur Leukocyte Esterase (Negative) Urine WBC (Auto) (0-5) /hpf Urine RBC (Auto) (0-2) /hpf U Hyaline Cast (Auto) (0-2) /lpf U Epithel Cells (Auto) (0-2) /hpf Urine Bacteria (Auto) (None Seen) Adenovirus (PCR) (NotDetected) B. pertussis DNA (PCR) (NotDetected) B.parapertussis DNA PCR (NotDetected) C. pneumoniae DNA (PCR) (NotDetected) Coronavirus OC43 (PCR) (NotDetected) Coronavirus HKU1 (PCR) (NotDetected) Coronavirus 229E (PCR) (NotDetected) SARS-CoV-2 (PCR) (NotDetected) Coronavirus NL63 (PCR) (NotDetected) Human Metapneumovir PCR (NotDetected) Influenza Type A (PCR) (NotDetected) Influenza Type B (PCR) (NotDetected) M. pneumoniae (PCR) (NotDetected) Parainfluenza 1 (PCR) (NotDetected) Parainfluenza 2 (PCR) (NotDetected) Parainfluenza 3 (PCR) (NotDetected) Parainfluenza 4 (PCR) (NotDetected) RSV (PCR) (NotDetected) Entero/Rhino (PCR) (NotDetected) Administered Medications Discontinued Medications Fentanyl Citrate (Fentanyl Citrate Pf 100 Mcg/2 Ml Vial) 50 mcg IV NOW STA Stop: 06/12/23 04:47 Last Admin: 06/12/23 04:51 Dose: 50 mcg Documented By: PIOTR Hydromorphone HCl (Hydromorphone Inj 0.5 Mg/0.5 Ml Syr) 0.5 mg IV NOW STA Stop: 06/12/23 03:28 Last Admin: 06/12/23 03:33 Dose: 0.5 mg Documented By: PIOTR Sodium Chloride (Nss) 1,000 mls @ 999 mls/hr IV .Q1H1M ONE Stop: 06/12/23 04:27 Last Infusion: 06/12/23 04:44 Dose: Infused Documented By: Admin: 06/12/23 03:33 Dose: 999 mls/hr Documented By: PIOTR Sodium Chloride (Nss) 1,000 mls @ 999 mls/hr IV .Q1H1M ONE Stop: 06/12/23 05:19 Last Infusion: 06/12/23 05:36 Dose: Infused Documented By: Admin: 06/12/23 04:44 Dose: 999 mls/hr Documented By: PIOTR Cefepime HCl (Maxipime) 2,000 mg in 20 mls @ 5 mls/min IV NOW STA; Protocol Stop: 06/12/23 04:49 Last Admin: 06/12/23 05:19 Dose: 5 mls/min Documented By: PIOTR Sodium Chloride (Nss) 500 mls @ 999 mls/hr IV .Q31M ONE Stop: 06/12/23 05:16 Last Infusion: 06/12/23 05:50 Dose: Infused Documented By: Admin: 06/12/23 05:19 Dose: 999 mls/hr Documented By: PIOTR Ioversol (Optiray 320 125ml) 118 ml IV ONCE ONE Stop: 06/12/23 03:54 Last Admin: 06/12/23 03:54 Dose: 118 ml Documented By: JORDAN Ondansetron HCl (Ondansetron Inj 2 Mg/Ml 2 Ml Vial) 4 mg IV NOW STA Stop: 06/12/23 03:28 Last Admin: 06/12/23 03:33 Dose: 4 mg Documented By: PIOTR Imaging Data Radiologist's Impression: Abdomen/Pelvis CTA 06/12/23 03:27 Exam(s): CTA ABDOMEN + PELVIS W/WO Contrast IV Amt: 118 cc opti 320 EXAM: CT Angiography Abdomen and Pelvis Without and With Intravenous Contrast CLINICAL HISTORY: eval aortic dissection. TECHNIQUE: Axial computed tomographic angiography images of the abdomen and pelvis without and with intravenous contrast. CTDI is 73.61 mGy and DLP is 3066. 91 mGy-cm. Automated exposure control was utilized for the study. A dose lowering technique was utilized adhering to the principles of ALARA. MIP reconstructed images were created and reviewed. CONTRAST: Patient received 118 cc opti 320 of IV contrast COMPARISON: No relevant prior studies available. FINDINGS: VASCULATURE: Aorta: The abdominal aorta is normal in caliber with atherosclerotic calcification noted dissection or aneurysm identified. No acute periaortic abnormality. Celiac trunk and mesenteric arteries: The celiac artery, superior mesenteric artery and SEBASTIAN are patent. No occlusion or significant stenosis. Renal arteries: Single right renal artery and 2 left renal arteries are patent without stenosis or occlusion. Iliac arteries: There is moderate, greater than 50% luminal stenosis involving the proximal left common iliac artery with a suggestion of ulcerative plaque proximally. No aneurysm, definite dissection or acute perivascular abnormality. The left external and internal iliac arteries are patent. The right common iliac, internal and external iliac arteries are patent. Lung bases: Unremarkable. No mass. No consolidation. ABDOMEN: Liver: Hepatic steatosis with mild lobular contours anteriorly. There is prominent reflux of contrast into the intrahepatic IVC and hepatic veins. Gallbladder and bile ducts: Unremarkable. No calcified stones. No ductal dilation. Pancreas: Unremarkable. No ductal dilation. No mass. Spleen: Unremarkable. No splenomegaly. Adrenals: Unremarkable. No mass. Kidneys and ureters: Unremarkable. No obstructing stones. No hydronephrosis. No solid mass. Stomach and bowel: No evidence for bowel obstruction. Asymmetric mucosal prominence of the partially distended cecum and ascending colon. PELVIS: Appendix: A normal caliber appendix is noted posterior to the cecum. Bladder: Unremarkable. No stones. No mass. Reproductive: Unremarkable as visualized. ABDOMEN and PELVIS: Intraperitoneal space: Mild ascites noted throughout the abdomen and pelvis. No loculation. No free air. Bones/joints: No acute fracture. No dislocation. Soft tissues: Unremarkable. Lymph nodes: Unremarkable. No enlarged lymph nodes. IMPRESSION: 1. The abdominal aorta is normal in caliber with atherosclerotic calcification noted dissection or aneurysm identified. No acute periaortic abnormality. 2. There is moderate, greater than 50% luminal stenosis involving the proximal left common iliac artery with a suggestion of ulcerative plaque proximally. No aneurysm, definite dissection or acute perivascular abnormality. 3. Mild ascites noted throughout the abdomen and pelvis. No loculation. 4. There is prominent reflux of contrast into the intrahepatic IVC and hepatic veins. This suggests right heart dysfunction and may represent venous congestion of the liver. 5. No evidence for bowel obstruction. Asymmetric mucosal prominence of the partially distended cecum and ascending colon. This may represent cirrhotic colopathy. However, inflammatory or infectious colitis are also considerations. No pneumoperitoneum. Electronically signed by: Wayne Correa MD 06/12/23 04:31 AM Chest CTA 06/12/23 03:27 Exam(s): CTA CHEST W/WO Contrast IV Amt: 118 cc opti 320 EXAM: CT Angiography Chest Without and With Intravenous Contrast CLINICAL HISTORY: eval aortic dissection. TECHNIQUE: Axial computed tomographic angiography images of the chest without and with intravenous contrast. CTDI is 73.61 mGy and DLP is 3066.91 mGy-cm. Automated exposure control was utilized for the study. A dose lowering technique was utilized adhering to the principles of ALARA. MIP reconstructed images were created and reviewed. CONTRAST: Patient received 118 cc opti 320 of IV contrast COMPARISON: CTA chest 10/30/2022 FINDINGS: Pulmonary arteries: Unremarkable. No pulmonary embolism. Aorta: Ectasia of the ascending aorta with the mid ascending aorta measuring 4 x 4.3 cm. There is a gradual tapering of the ascending aorta with the aortic arch and descending aorta are normal in caliber. No dissection. No intimal wall abnormality identified on precontrast imaging. No acute periaortic abnormality. Lungs: No focal airspace consolidation. Central peribronchial cuffing noted bilaterally, most prominent in the lower lobes, similar to the previous examination. Curvilinear changes involving the lingular segments. Pleural space: Unremarkable. No significant effusion. No pneumothorax. Heart: Global cardiomegaly. There is significant reflux of contrast into the intrahepatic IVC and hepatic veins. Trace pericardial effusion in the superior pericardial recess, stable. Similar mild coronary artery calcification. Bones/joints: No acute fracture. No dislocation. Soft tissues: Unremarkable. Lymph nodes: Nonspecific bilateral hilar lymph nodes, similar. IMPRESSION: 1. Ectasia of the ascending aorta with the mid ascending aorta measuring 4 x 4.3 cm. There is a gradual tapering of the ascending aorta with the aortic arch and descending aorta are normal in caliber. No dissection. No intimal wall abnormality identified on precontrast imaging. No acute periaortic abnormality. 2. Global cardiomegaly. There is significant reflux of contrast into the intrahepatic IVC and hepatic veins. Findings suggest right heart dysfunction. 3. No focal airspace consolidation. Central peribronchial cuffing noted bilaterally, most prominent in the lower lobes, similar to the previous examination. This may represent chronic changes or recurrent inflammatory or infectious bronchitis. Interstitial vascular congestion is considered less likely without coexisting interlobular septal thickening. Electronically signed by: Wayne Correa MD 06/12/23 04:37 AM Chest X-Ray 06/12/23 03:27 XR chest 1V portable HISTORY: 47 years-old Male Sepsis acute sepsis COMPARISON: CTA chest of same day TECHNIQUE: AP view of the chest FINDINGS: Cardiac silhouette is enlarged. No pneumothorax, pleural effusion, airspace consolidation or pulmonary edema. Mild pulmonary emphysema. Bones of the chest appear grossly intact. Contrast noted within the renal collecting systems. Partially imaged cervical spinal fusion hardware. IMPRESSION: Cardiomegaly without acute process of the chest. ACT 112: Negative or not required by law. The above report was generated using voice recognition software. It may contain grammatical, syntax or spelling errors. Electronically signed by: Yakov Miller M.D. 06/12/2023 7:07 AM Discharge Plan Visit Data Chief Complaint: Abdominal Pain Stated Complaint: ABDOMINAL PAIN INTO CHEST AND BACK ED Provider: Sridevi Rahman Discharge Problem: Abdominal pain, epigastric, Acute hyponatremia, Acute dehydration, Hypovolemic shock Forms Stand Alone Forms: My [facility] Prescriptions Prescriptions: No Action furosemide [Lasix] 40 mg tablet 40 mg PO QAM Qty: 30 3RF metoprolol succinate 25 mg tablet extended release 24 hr 25 mg PO QAM Qty: 30 1RF potassium chloride 20 mEq tablet,ER particles/crystals 20 meq PO QAM Qty: 30 0RF Entresto 49-51 mg tablet 1 tab PO BID Qty: 60 1RF spironolactone 25 mg tablet 25 mg PO QAM Qty: 90 3RF albuterol sulfate [Ventolin HFA] 90 mcg/actuation Hfa Aerosol Inhaler 2 puff inhalation Q6H PRN (Reason: shortness of breath or wheezing) Qty: 8.5 0RF nicotine [Nicoderm CQ] 21 mg/24 hr Patch 24 Hour 21 mg transdermal QAM Qty: 14 0RF Rx Instructions: Can buy OTC nitroglycerin [Nitrostat] 0.4 mg Tablet, Sublingual 0.4 mg sublingual Q5M PRN (Reason: chest pain) Qty: 30 0RF Rx Instructions: x 3 doses and call your doctor or go to the hospital rosuvastatin [Crestor] 20 mg Tablet 20 mg PO QAM Qty: 30 0RF aspirin 81 mg Tablet,Delayed Release (Dr/Ec) 81 mg PO DAILY Qty: 30 0RF pantoprazole 40 mg Tablet,Delayed Release (Dr/Ec) 40 mg PO QAM Qty: 30 0RF Referrals Referrals: PCP,NO [Primary Care Provider] -
[2023-06-12] MEDS: OPTIRAY 320 125ml IV ONE (03:54)
[2023-06-12 04:01] LABS: Basophils # (auto) 0.08 K/uL (0.00-0.20); Basophils % (auto) 0.8 %; Eosinophils # (auto) 0.06 K/uL (0.00-0.50); Eosinophils % (auto) 0.6 %; Hematocrit (blood only) 50.8 % (42.0-52.0); Hemoglobin 16.6 g/dl (14.0-18.0); Immature Granulocytes # (auto) 0.03 K/uL (0.01-0.20); Immature Granulocytes % (auto) 0.3 %; Lymphocytes # (auto) 3.06 K/uL (1.20-3.40); Lymphocytes % (auto) 32.4 %; Mean Corpuscular Hemoglobin 29.9 pg (25.0-34.0); Mean Corpuscular Hgb Conc 32.7 g/dL (32.0-36.0); Mean Corpuscular Volume 91.4 fL (80.0-100.0); Mean Platelet Volume 10.3 fL (9.4-12.4); Monocytes # (auto) 0.98 K/uL (0.11-0.59); Monocytes % (auto) 10.4 %; Neutrophils # (auto) 5.24 K/uL (1.40-6.50); Neutrophils % (auto) 55.5 %; Platelet Count 335 K/uL (130-400); RDW Coefficient of Variation 14.8 % (11.5-14.5); RDW Standard Deviation 49.1 fL (36.4-46.3); Red Blood Count 5.56 M/uL (4.70-6.10); White Blood Count 9.45 K/ul (4.8-10.8)
--- NOTE | 2023-06-12 04:33 | CT Scan Report ---
Exam(s): CTA ABDOMEN + PELVIS W/WO Contrast IV Amt: 118 cc opti 320 EXAM: CT Angiography Abdomen and Pelvis Without and With Intravenous Contrast CLINICAL HISTORY: eval aortic dissection. TECHNIQUE: Axial computed tomographic angiography images of the abdomen and pelvis without and with intravenous contrast. CTDI is 73.61 mGy and DLP is 3066. 91 mGy-cm. Automated exposure control was utilized for the study. A dose lowering technique was utilized adhering to the principles of ALARA. MIP reconstructed images were created and reviewed. CONTRAST: Patient received 118 cc opti 320 of IV contrast COMPARISON: No relevant prior studies available. FINDINGS: VASCULATURE: Aorta: The abdominal aorta is normal in caliber with atherosclerotic calcification noted dissection or aneurysm identified. No acute periaortic abnormality. Celiac trunk and mesenteric arteries: The celiac artery, superior mesenteric artery and SEBASTIAN are patent. No occlusion or significant stenosis. Renal arteries: Single right renal artery and 2 left renal arteries are patent without stenosis or occlusion. Iliac arteries: There is moderate, greater than 50% luminal stenosis involving the proximal left common iliac artery with a suggestion of ulcerative plaque proximally. No aneurysm, definite dissection or acute perivascular abnormality. The left external and internal iliac arteries are patent. The right common iliac, internal and external iliac arteries are patent. Lung bases: Unremarkable. No mass. No consolidation. ABDOMEN: Liver: Hepatic steatosis with mild lobular contours anteriorly. There is prominent reflux of contrast into the intrahepatic IVC and hepatic veins. Gallbladder and bile ducts: Unremarkable. No calcified stones. No ductal dilation. Pancreas: Unremarkable. No ductal dilation. No mass. Spleen: Unremarkable. No splenomegaly. Adrenals: Unremarkable. No mass. Kidneys and ureters: Unremarkable. No obstructing stones. No hydronephrosis. No solid mass. Stomach and bowel: No evidence for bowel obstruction. Asymmetric mucosal prominence of the partially distended cecum and ascending colon. PELVIS: Appendix: A normal caliber appendix is noted posterior to the cecum. Bladder: Unremarkable. No stones. No mass. Reproductive: Unremarkable as visualized. ABDOMEN and PELVIS: Intraperitoneal space: Mild ascites noted throughout the abdomen and pelvis. No loculation. No free air. Bones/joints: No acute fracture. No dislocation. Soft tissues: Unremarkable. Lymph nodes: Unremarkable. No enlarged lymph nodes. IMPRESSION: 1. The abdominal aorta is normal in caliber with atherosclerotic calcification noted dissection or aneurysm identified. No acute periaortic abnormality. 2. There is moderate, greater than 50% luminal stenosis involving the proximal left common iliac artery with a suggestion of ulcerative plaque proximally. No aneurysm, definite dissection or acute perivascular abnormality. 3. Mild ascites noted throughout the abdomen and pelvis. No loculation. 4. There is prominent reflux of contrast into the intrahepatic IVC and hepatic veins. This suggests right heart dysfunction and may represent venous congestion of the liver. 5. No evidence for bowel obstruction. Asymmetric mucosal prominence of the partially distended cecum and ascending colon. This may represent cirrhotic colopathy. However, inflammatory or infectious colitis are also considerations. No pneumoperitoneum. Electronically signed by: Wayne Correa MD 06/12/23 04:31 AM
[2023-06-12 04:37] LABS: Albumin Level 3.1 gm/dl (3.4-5.0); Bilirubin Direct 0.6 mg/dl (0-0.2); Bilirubin,Total 1.5 mg/dl (0.2-1.0); Calcium 8.1 mg/dl (8.6-10.3); Magnesium 1.8 mg/dl (1.7-2.4); Potassium 3.9 mmol/L (3.5-5.1)
--- NOTE | 2023-06-12 04:37 | CT Scan Report ---
Exam(s): CTA CHEST W/WO Contrast IV Amt: 118 cc opti 320 EXAM: CT Angiography Chest Without and With Intravenous Contrast CLINICAL HISTORY: eval aortic dissection. TECHNIQUE: Axial computed tomographic angiography images of the chest without and with intravenous contrast. CTDI is 73.61 mGy and DLP is 3066.91 mGy-cm. Automated exposure control was utilized for the study. A dose lowering technique was utilized adhering to the principles of ALARA. MIP reconstructed images were created and reviewed. CONTRAST: Patient received 118 cc opti 320 of IV contrast COMPARISON: CTA chest 10/30/2022 FINDINGS: Pulmonary arteries: Unremarkable. No pulmonary embolism. Aorta: Ectasia of the ascending aorta with the mid ascending aorta measuring 4 x 4.3 cm. There is a gradual tapering of the ascending aorta with the aortic arch and descending aorta are normal in caliber. No dissection. No intimal wall abnormality identified on precontrast imaging. No acute periaortic abnormality. Lungs: No focal airspace consolidation. Central peribronchial cuffing noted bilaterally, most prominent in the lower lobes, similar to the previous examination. Curvilinear changes involving the lingular segments. Pleural space: Unremarkable. No significant effusion. No pneumothorax. Heart: Global cardiomegaly. There is significant reflux of contrast into the intrahepatic IVC and hepatic veins. Trace pericardial effusion in the superior pericardial recess, stable. Similar mild coronary artery calcification. Bones/joints: No acute fracture. No dislocation. Soft tissues: Unremarkable. Lymph nodes: Nonspecific bilateral hilar lymph nodes, similar. IMPRESSION: 1. Ectasia of the ascending aorta with the mid ascending aorta measuring 4 x 4.3 cm. There is a gradual tapering of the ascending aorta with the aortic arch and descending aorta are normal in caliber. No dissection. No intimal wall abnormality identified on precontrast imaging. No acute periaortic abnormality. 2. Global cardiomegaly. There is significant reflux of contrast into the intrahepatic IVC and hepatic veins. Findings suggest right heart dysfunction. 3. No focal airspace consolidation. Central peribronchial cuffing noted bilaterally, most prominent in the lower lobes, similar to the previous examination. This may represent chronic changes or recurrent inflammatory or infectious bronchitis. Interstitial vascular congestion is considered less likely without coexisting interlobular septal thickening. Electronically signed by: Wayne Correa MD 06/12/23 04:37 AM
[2023-06-12 04:43] LABS: BUN Creatinine Ratio 22.8 (10-20); Creatinine Clr Calc Pharmacy 80.6 ml/min; Total Protein 5.4 gm/dl (6.0-8.3)
[2023-06-12 04:48] LABS: Troponin I High Sensitivity 22.8 pg/ml (0-20)
[2023-06-12] MEDS: fentaNYL citrate PF 100 MCG/2 ML VIAL IV STA (04:51)
[2023-06-12 05:08] LABS: Adenovirus PCR Not Detected (NotDetected); Bordetella parapertussis PCR Not Detected (NotDetected); Bordetella pertussis PCR Not Detected (NotDetected); Chlamydia pneumoniae PCR Not Detected (NotDetected); Coronavirus 229E PCR Not Detected (NotDetected); Coronavirus CoV-2 (COVID19)PCR Not Detected (NotDetected); Coronavirus HKU1 PCR Not Detected (NotDetected); Coronavirus NL63 PCR Not Detected (NotDetected); Coronavirus OC43PCR Not Detected (NotDetected); Human Metapneumovirus PCR Not Detected (NotDetected); Influenza A PCR Not Detected (NotDetected); Influenza B PCR Not Detected (NotDetected); Mycoplasma pneumoniae PCR Not Detected (NotDetected); Parainfluenza Virus 1 PCR Not Detected (NotDetected); Parainfluenza Virus 2 PCR Not Detected (NotDetected); Parainfluenza Virus 3 PCR Not Detected (NotDetected); Parainfluenza Virus 4 PCR Not Detected (NotDetected); Respiratory Syncytial VirusPCR Not Detected (NotDetected); Rhinovirus/Enterovirus PCR Not Detected (NotDetected)
[2023-06-12] MEDS: CEFEPIME 2,000 MG/20 ML VIAL IV STA (05:19)
[2023-06-12] MEDS: SODIUM CHLORIDE 0.9% 500 ML IV ONE (05:19)
[2023-06-12 05:43] LABS: Appearance Urine Clear (Clear); Bacteria Urine Automated None Seen (None Seen); Bilirubin Urine 1+ (Negative); Blood Urine Negative (Negative); Cast Urine Automated 0-2 /lpf (0-2); Color Urine Dark Yellow; Epithelial Cell Urine Auto 0-2 /hpf (0-2); Glucose Urine UA Negative (Negative); Ketones Urine Negative (Negative); Leukocyte Esterase Urine Negative (Negative); Nitrite Urine Negative (Negative); Protein Urine 3+ (Negative); RBC Urine Automated 0-2 /hpf (0-2); Specific Gravity Urine > 1.045 (1.000-1.030); Urobilinogen Urine Positive (Negative); WBC Urine Automated 0-5 /hpf (0-5); pH Urine 5.5 (4.5-7.5)
--- NOTE | 2023-06-12 05:52 | History & Physical Report ---
Date of Service June 12, 2023 Assessment & Plan (1) Abdominal pain, epigastric: Plan: Etiology unclear. ?Dehydration? Poor perfusion. ER attending states that patient was very cool and mottled on arrival with increased capillary refill time Improved with IVF -trend troponin -Repeat LFTs -Morphine and Zofran PRN (2) Chronic systolic (congestive) heart failure: Plan: Patient appears dry on exam slightly -Continue Valsartan/Sacbitril and Metoprolol -HOld Lasix and Sprionolactone -Monitor I/Os, daily weights (3) Hypertension: Plan: Chronic -Continue cardiac medications as above (4) CAD (coronary artery disease): History of Present Illness Chief Complaint: abdominal pain, back pain Primary Care Provider: NO PCP Geovanni Weeks is a 47yo male with h/o ICM woth EF of 15-20%, CAD presenting with abodminal pain. back pain. Patient was working on a car a couple of days ago and wasn't feeling well. Laid down and felt nausea. The next day he had some chest pressure that radiated into the back and abdomen. He was seen at [facility] +[place], nausea and vomiting Allergies Allergy/AdvReac Type Severity Reaction Status Date / Time Sulfa (Sulfonamide Allergy Intermediate Hives Verified 11/19/22 15:38 Antibiotics) Home Medications Medication Instructions Recorded Confirmed Type albuterol sulfate 90 mcg/actuation 2 puff inhalation Q6H PRN 11/01/22 03/14/23 Rx aerosol inhaler (Ventolin HFA) shortness of breath or wheezing #8.5 grams aspirin 81 mg tablet,delayed 81 mg PO DAILY #30 tabs 11/01/22 03/14/23 Rx release nicotine 21 mg/24 hr daily 21 mg transdermal QAM #14 ea 11/01/22 03/14/23 Rx transdermal patch (Nicoderm CQ) nitroglycerin 0.4 mg sublingual 0.4 mg sublingual Q5M PRN chest 11/01/22 03/14/23 Rx tablet (Nitrostat) pain #30 tabs pantoprazole 40 mg tablet,delayed 40 mg PO QAM #30 tabs 11/01/22 03/14/23 Rx release rosuvastatin 20 mg tablet (Crestor) 20 mg PO QAM #30 tabs 09/15/23 01/26/24 Rx furosemide 40 mg tablet (Lasix) 40 mg PO QAM #30 tabs 11/19/22 03/14/23 Rx metoprolol succinate 25 mg 25 mg PO QAM #30 tabs 11/19/22 03/14/23 Rx tablet,extended release 24 hr potassium chloride 20 mEq 20 meq PO QAM #30 tabs 11/19/22 03/14/23 Rx tablet,extended release(part/cryst) sacubitril 49 mg-valsartan 51 mg 1 tab PO BID #60 tabs 11/19/22 03/14/23 Rx tablet (Entresto) spironolactone 25 mg tablet 25 mg PO QAM #90 tabs 11/19/22 03/14/23 Rx Past Med/Surg History Medical History Lab test negative for COVID-19 virus CHF (congestive heart failure) Elevated troponin I level Hypokalemia Ventricular tachycardia Tobacco abuse Cardiomyopathy Elevated troponin I level Chest pain High cholesterol Hypertension History of heart attack Family History Father Myocardial infarction Mother Stroke Brother Cirrhosis Sister Hypertension Social History Smoking Status: Former smoker Tobacco Type: Cigarettes Cigarettes Per Day: 1/2 pack; Second Hand Exposure: Yes; Do You Dip or Chew Tobacco: No; Hx Alcohol Use: No Hx Substance Use: No Preferred Language: Greek Communication Ability: Effective Egg Pasteurizer Required: No Beliefs That Will Affect Care: None Current Living Situation: Family Current Living Situation Comment: staying on families couch Feels Safe at Home: Yes Assistive Devices: None Review of Systems Review of Systems: All systems reviewed & are unremarkable except as noted in HPI & below Physical Exam Physical Exam: General: patient resting comfortably, NAD, non-toxic in appearance, AA&O x 4 Skin: warm, dry, intact, no rashes or lesions HEENT: NC/AT, PERRL, EOMI, anicteric sclera, conjunctiva without injection, external ear normal to inspection and nontender, nares patent, moist mucus membranes, dentition intact, no oropharyngeal lesions, neck supple, trachea midline, no LAD, no thyromegaly, no JVD Heart: +S1/S2, regular, no m/r/g Lungs: equal air entry bilaterally, no rales/rhonchi/wheezes Abd: +BS, soft, NT/ND, no masses/organomegaly/ascites Ext: warm, 2+ pulses in UE/LE bilaterally, no clubbing/cyanosis or edema Neuro: nonfocal, patient AA&O x 4, speech intact, no facial droop, moving all extremities on command with equal strength 5/5 Results & Data Results & Data Vital Signs (Past 12 Hours) Vital Signs Temp Pulse Pulse Resp BP BP Pulse Ox 06/12/23 05:11 88 18 120/54 L 100 06/12/23 04:12 88 18 116/82 98 06/12/23 03:59 100 06/12/23 03:59 87 18 139/102 H 100 06/12/23 03:24 94 H 06/12/23 03:18 36.4 C L 92 H 20 143/103 H 100 O2 Del Method 06/12/23 05:11 Room Air 06/12/23 04:12 Room Air 06/12/23 03:59 Room Air 06/12/23 03:59 Room Air 06/12/23 03:24 06/12/23 03:18 Room Air Laboratory Results Laboratory Results WBC 9.45 K/ul (4.8-10.8) 06/12/23 03:40 RBC 5.56 M/uL (4.70-6.10) 06/12/23 03:40 Hgb 16.6 g/dl (14.0-18.0) 06/12/23 03:40 POC Hgb 18.7 g/dl (14.0-18.0) H 06/12/23 03:35 Hct 50.8 % (42.0-52.0) 06/12/23 03:40 POC Hct 55 % (42-52) H 06/12/23 03:35 MCV 91.4 fL (80.0-100.0) 06/12/23 03:40 MCH 29.9 pg (25.0-34.0) 06/12/23 03:40 MCHC 32.7 g/dL (32.0-36.0) 06/12/23 03:40 RDW Std Deviation 49.1 fL (36.4-46.3) H 06/12/23 03:40 RDW Coeff of Nicolás 14.8 % (11.5-14.5) H 06/12/23 03:40 Plt Count 335 K/uL (130-400) 06/12/23 03:40 MPV 10.3 fL (9.4-12.4) 06/12/23 03:40 Immature Gran % (Auto) 0.3 % 06/12/23 03:40 Neut % (Auto) 55.5 % 06/12/23 03:40 Lymph % (Auto) 32.4 % 06/12/23 03:40 [place] % (Auto) 10.4 % 06/12/23 03:40 Eos % (Auto) 0.6 % 06/12/23 03:40 Baso % (Auto) 0.8 % 06/12/23 03:40 Neut # (Auto) 5.24 K/uL (1.40-6.50) 06/12/23 03:40 Lymph # (Auto) 3.06 K/uL (1.20-3.40) 06/12/23 03:40 [place] # (Auto) 0.98 K/uL (0.11-0.59) H 06/12/23 03:40 Eos # (Auto) 0.06 K/uL (0.00-0.50) 06/12/23 03:40 Baso # (Auto) 0.08 K/uL (0.00-0.20) 06/12/23 03:40 Immature Gran # (Auto) 0.03 K/uL (0.01-0.20) 06/12/23 03:40 POC Sodium 131 mmol/L (135-144) L 06/12/23 03:35 Sodium 129 mmol/L (136-145) L 06/12/23 04:07 POC Potassium 4.1 mmol/L (3.3-5.0) 06/12/23 03:35 Potassium 3.9 mmol/L (3.5-5.1) 06/12/23 04:07 POC Chloride 93 mmol/L (101-112) L 06/12/23 03:35 Chloride 95 mmol/L (98-107) L 06/12/23 04:07 Carbon Dioxide 24 mmol/L (21-32) 06/12/23 04:07 POC Total CO2 29 mmol/L (24-31) 06/12/23 03:35 Anion Gap 10 (3-11) 06/12/23 04:07 POC Anion Gap 14.0 mmol/L (16-25) L 06/12/23 03:35 POC BUN 33 mg/dl (7-18) H 06/12/23 03:35 BUN 28 mg/dl (6-23) H 06/12/23 04:07 Creatinine 1.23 mg/dl (0.6-1.4) 06/12/23 04:07 POC Creatinine 1.4 mg/dl (0.6-1.3) H 06/12/23 03:35 Est Cr Clr Drug Dosing 80.6 ml/min 06/12/23 04:07 Est GFR ( Amer) 80.0 ml/min 06/12/23 04:07 Est GFR (Non-Af Amer) 69.0 ml/min 06/12/23 04:07 BUN/Creatinine Ratio 22.8 (10-20) H 06/12/23 04:07 Glucose 112 mg/dl (70-99(Fasting)) H 06/12/23 04:07 POC Glucose (other) 105 mg/dl (70-99) H 06/12/23 03:35 Lactate 3.7 mmol/L (0.4-2.0) H* 06/12/23 05:51 Calcium 8.1 mg/dl (8.6-10.3) L 06/12/23 04:07 POC Ioniz Calcium Krzysztof 1.00 mmol/l (1.12-1.32) L 06/12/23 03:35 Magnesium 1.8 mg/dl (1.7-2.4) 06/12/23 04:07 Total Bilirubin 1.5 mg/dl (0.2-1.0) H 06/12/23 04:07 Direct Bilirubin 0.6 mg/dl (0-0.2) H 06/12/23 04:07 AST 157 U/L (13-39) H 06/12/23 04:07 ALT 181 U/L (7-52) H 06/12/23 04:07 Alkaline Phosphatase 69 U/L (34-104) 06/12/23 04:07 Troponin I High Sens 22.8 pg/ml (0-20) H 06/12/23 05:48 B-Natriuretic Peptide 2585 pg/ml (0-100) H 06/12/23 05:48 Total Protein 5.4 gm/dl (6.0-8.3) L 06/12/23 04:07 Albumin 3.1 gm/dl (3.4-5.0) L 06/12/23 04:07 Lipase 6 U/L (11-82) L 06/12/23 05:48 Procalcitonin 0.03 ng/ml (0-0.5) 06/12/23 03:40 Urine Color Dark Yellow 06/12/23 05:10 Urine Appearance Clear (Clear) 06/12/23 05:10 Urine pH 5.5 (4.5-7.5) 06/12/23 05:10 Ur Specific [place] > 1.045 (1.000-1.030) H 06/12/23 05:10 Urine Protein 3+ (Negative) H 06/12/23 05:10 Urine Glucose (UA) Negative (Negative) 06/12/23 05:10 Urine Ketones Negative (Negative) 06/12/23 05:10 Urine Blood Negative (Negative) 06/12/23 05:10 Urine Nitrite Negative (Negative) 06/12/23 05:10 Urine Bilirubin 1+ (Negative) H 06/12/23 05:10 Urine Urobilinogen Positive (Negative) H 06/12/23 05:10 Ur Leukocyte Esterase Negative (Negative) 06/12/23 05:10 Urine WBC (Auto) 0-5 /hpf (0-5) 06/12/23 05:10 Urine RBC (Auto) 0-2 /hpf (0-2) 06/12/23 05:10 U Hyaline Cast (Auto) 0-2 /lpf (0-2) 06/12/23 05:10 U Epithel Cells (Auto) 0-2 /hpf (0-2) 06/12/23 05:10 Urine Bacteria (Auto) None Seen (None Seen) 06/12/23 05:10 Adenovirus (PCR) Not Detected (NotDetected) 06/12/23 04:08 B. pertussis DNA (PCR) Not Detected (NotDetected) 06/12/23 04:08 B.parapertussis DNA PCR Not Detected (NotDetected) 06/12/23 04:08 C. pneumoniae DNA (PCR) Not Detected (NotDetected) 06/12/23 04:08 Coronavirus OC43 (PCR) Not Detected (NotDetected) 06/12/23 04:08 Coronavirus HKU1 (PCR) Not Detected (NotDetected) 06/12/23 04:08 Coronavirus 229E (PCR) Not Detected (NotDetected) 06/12/23 04:08 SARS-CoV-2 (PCR) Not Detected (NotDetected) 06/12/23 04:08 Coronavirus NL63 (PCR) Not Detected (NotDetected) 06/12/23 04:08 Human Metapneumovir PCR Not Detected (NotDetected) 06/12/23 04:08 Influenza Type A (PCR) Not Detected (NotDetected) 06/12/23 04:08 Influenza Type B (PCR) Not Detected (NotDetected) 06/12/23 04:08 M. pneumoniae (PCR) Not Detected (NotDetected) 06/12/23 04:08 Parainfluenza 1 (PCR) Not Detected (NotDetected) 06/12/23 04:08 Parainfluenza 2 (PCR) Not Detected (NotDetected) 06/12/23 04:08 Parainfluenza 3 (PCR) Not Detected (NotDetected) 06/12/23 04:08 Parainfluenza 4 (PCR) Not Detected (NotDetected) 06/12/23 04:08 RSV (PCR) Not Detected (NotDetected) 06/12/23 04:08 Entero/Rhino (PCR) Not Detected (NotDetected) 06/12/23 04:08 Impressions Abdomen/Pelvis CTA 06/12/23 03:27 Exam(s): CTA ABDOMEN + PELVIS W/WO Contrast IV Amt: 118 cc opti 320 EXAM: CT Angiography Abdomen and Pelvis Without and With Intravenous Contrast CLINICAL HISTORY: eval aortic dissection. TECHNIQUE: Axial computed tomographic angiography images of the abdomen and pelvis without and with intravenous contrast. CTDI is 73.61 mGy and DLP is 3066. 91 mGy-cm. Automated exposure control was utilized for the study. A dose lowering technique was utilized adhering to the principles of ALARA. MIP reconstructed images were created and reviewed. CONTRAST: Patient received 118 cc opti 320 of IV contrast COMPARISON: No relevant prior studies available. FINDINGS: VASCULATURE: Aorta: The abdominal aorta is normal in caliber with atherosclerotic calcification noted dissection or aneurysm identified. No acute periaortic abnormality. Celiac trunk and mesenteric arteries: The celiac artery, superior mesenteric artery and SEBASTIAN are patent. No occlusion or significant stenosis. Renal arteries: Single right renal artery and 2 left renal arteries are patent without stenosis or occlusion. Iliac arteries: There is moderate, greater than 50% luminal stenosis involving the proximal left common iliac artery with a suggestion of ulcerative plaque proximally. No aneurysm, definite dissection or acute perivascular abnormality. The left external and internal iliac arteries are patent. The right common iliac, internal and external iliac arteries are patent. Lung bases: Unremarkable. No mass. No consolidation. ABDOMEN: Liver: Hepatic steatosis with mild lobular contours anteriorly. There is prominent reflux of contrast into the intrahepatic IVC and hepatic veins. Gallbladder and bile ducts: Unremarkable. No calcified stones. No ductal dilation. Pancreas: Unremarkable. No ductal dilation. No mass. Spleen: Unremarkable. No splenomegaly. Adrenals: Unremarkable. No mass. Kidneys and ureters: Unremarkable. No obstructing stones. No hydronephrosis. No solid mass. Stomach and bowel: No evidence for bowel obstruction. Asymmetric mucosal prominence of the partially distended cecum and ascending colon. PELVIS: Appendix: A normal caliber appendix is noted posterior to the cecum. Bladder: Unremarkable. No stones. No mass. Reproductive: Unremarkable as visualized. ABDOMEN and PELVIS: Intraperitoneal space: Mild ascites noted throughout the abdomen and pelvis. No loculation. No free air. Bones/joints: No acute fracture. No dislocation. Soft tissues: Unremarkable. Lymph nodes: Unremarkable. No enlarged lymph nodes. IMPRESSION: 1. The abdominal aorta is normal in caliber with atherosclerotic calcification noted dissection or aneurysm identified. No acute periaortic abnormality. 2. There is moderate, greater than 50% luminal stenosis involving the proximal left common iliac artery with a suggestion of ulcerative plaque proximally. No aneurysm, definite dissection or acute perivascular abnormality. 3. Mild ascites noted throughout the abdomen and pelvis. No loculation. 4. There is prominent reflux of contrast into the intrahepatic IVC and hepatic veins. This suggests right heart dysfunction and may represent venous congestion of the liver. 5. No evidence for bowel obstruction. Asymmetric mucosal prominence of the partially distended cecum and ascending colon. This may represent cirrhotic colopathy. However, inflammatory or infectious colitis are also considerations. No pneumoperitoneum. Electronically signed by: Wayne Correa MD 06/12/23 04:31 AM Chest CTA 06/12/23 03:27 Exam(s): CTA CHEST W/WO Contrast IV Amt: 118 cc opti 320 EXAM: CT Angiography Chest Without and With Intravenous Contrast CLINICAL HISTORY: eval aortic dissection. TECHNIQUE: Axial computed tomographic angiography images of the chest without and with intravenous contrast. CTDI is 73.61 mGy and DLP is 3066.91 mGy-cm. Automated exposure control was utilized for the study. A dose lowering technique was utilized adhering to the principles of ALARA. MIP reconstructed images were created and reviewed. CONTRAST: Patient received 118 cc opti 320 of IV contrast COMPARISON: CTA chest 10/30/2022 FINDINGS: Pulmonary arteries: Unremarkable. No pulmonary embolism. Aorta: Ectasia of the ascending aorta with the mid ascending aorta measuring 4 x 4.3 cm. There is a gradual tapering of the ascending aorta with the aortic arch and descending aorta are normal in caliber. No dissection. No intimal wall abnormality identified on precontrast imaging. No acute periaortic abnormality. Lungs: No focal airspace consolidation. Central peribronchial cuffing noted bilaterally, most prominent in the lower lobes, similar to the previous examination. Curvilinear changes involving the lingular segments. Pleural space: Unremarkable. No significant effusion. No pneumothorax. Heart: Global cardiomegaly. There is significant reflux of contrast into the intrahepatic IVC and hepatic veins. Trace pericardial effusion in the superior pericardial recess, stable. Similar mild coronary artery calcification. Bones/joints: No acute fracture. No dislocation. Soft tissues: Unremarkable. Lymph nodes: Nonspecific bilateral hilar lymph nodes, similar. IMPRESSION: 1. Ectasia of the ascending aorta with the mid ascending aorta measuring 4 x 4.3 cm. There is a gradual tapering of the ascending aorta with the aortic arch and descending aorta are normal in caliber. No dissection. No intimal wall abnormality identified on precontrast imaging. No acute periaortic abnormality. 2. Global cardiomegaly. There is significant reflux of contrast into the intrahepatic IVC and hepatic veins. Findings suggest right heart dysfunction. 3. No focal airspace consolidation. Central peribronchial cuffing noted bilaterally, most prominent in the lower lobes, similar to the previous examination. This may represent chronic changes or recurrent inflammatory or infectious bronchitis. Interstitial vascular congestion is considered less likely without coexisting interlobular septal thickening. Electronically signed by: Wayne Correa MD 06/12/23 04:37 AM Chest X-Ray 06/12/23 03:27 XR chest 1V portable HISTORY: 47 years-old Male Sepsis acute sepsis COMPARISON: CTA chest of same day TECHNIQUE: AP view of the chest FINDINGS: Cardiac silhouette is enlarged. No pneumothorax, pleural effusion, airspace consolidation or pulmonary edema. Mild pulmonary emphysema. Bones of the chest appear grossly intact. Contrast noted within the renal collecting systems. Partially imaged cervical spinal fusion hardware. IMPRESSION: Cardiomegaly without acute process of the chest. ACT 112: Negative or not required by law. The above report was generated using voice recognition software. It may contain grammatical, syntax or spelling errors. Electronically signed by: Yakov Miller M.D. 06/12/2023 7:07 AM PG Care Time/CCT Total # of Minutes Spent Total Time Spent with Patient: Total time spent is greater than 50% in coordination of care (as documented) at patient's floor/unit and/or counseling patient: Coding Level of Care Code 14538 INT INP/OBS CARE 2/55MIN Diagnoses Abdominal pain, epigastric R10.13 Chronic systolic (congestive) heart failure I50.22 Hypertension I10 CAD (coronary artery disease) I25.10 Associated angina: unspecified whether angina present Coronary Disease-Associated Artery/Lesion type: unspecified vessel or lesion type [place] vs. transplanted heart: unspecified whether [place] or transplanted heart (4) CAD (coronary artery disease) Associated angina: unspecified whether angina present Coronary Disease- Associated Artery/Lesion type: unspecified vessel or lesion type [place] vs. transplanted heart: unspecified whether [place] or transplanted heart Qualified Code(s): I25.10 - Atherosclerotic heart disease of [place] coronary artery without angina pectoris
[2023-06-12 06:27] LABS: Troponin I High Sensitivity 22.8 pg/ml (0-20)
--- NOTE | 2023-06-12 07:09 | XRay Report ---
XR chest 1V portable HISTORY: 47 years-old Male Sepsis acute sepsis COMPARISON: CTA chest of same day TECHNIQUE: AP view of the chest FINDINGS: Cardiac silhouette is enlarged. No pneumothorax, pleural effusion, airspace consolidation or pulmonar y edema. Mild pulmonary emphysema. Bones of the chest appear grossly intact. Contrast noted within th e renal collecting systems. Partially imaged cervical spinal fusion hardware. IMPRESSION: Cardiomegaly without acute process of the chest. ACT 112: Negative or not required by law. The above report was generated using voice recognition software. It may contain grammatical, syntax o r spelling errors. Electronically signed by: Yakov Miller M.D. 06/12/2023 7:07 AM
[2023-06-12] MEDS ORDERED: ACETAMINOPHEN 325 MG TAB PO PRN (07:40)
[2023-06-12] MEDS: MoRPHine SULFATE 4 MG/ML 1 ML CARP\\VIAL IV PRN (08:37)
[2023-06-12] MEDS: CALCIUM GLUCONATE 1,000 MG/60 ML BAG IV STA (08:37)
[2023-06-12] MEDS: VALSARTAN/SACUBITRIL 51/49 MG TAB PO SCH (10:33)
[2023-06-12] MEDS: METOPROLOL SUCC 25MG EXT REL TAB PO SCH (10:33)
[2023-06-12] MEDS: PANTOprazole 40 MG TAB PO SCH (10:33)
[2023-06-12] MEDS: ALUMINUM/MAGNESIUM/SIMETH (MAALOX MAX) 30 ML UDC PO PRN (13:21)
--- NOTE | 2023-06-12 15:17 | XCELERA ---
[id number]
[2023-06-12] MEDS: NICOTINE 14 MG/24 HR PATCH TD SCH (15:21)
--- NOTE | 2023-06-12 15:47 | Electrocardiogram Report ---
Test Reason : Blood Pressure : / mmHG Vent. Rate : 093 BPM Atrial Rate : 093 BPM P-R Int : 190 ms QRS Dur : 128 ms QT Int : 408 ms P-R-T Axes : 065 -34 092 degrees QTc Int : 507 ms Normal sinus rhythm Possible Left atrial enlargement Left axis deviation Left ventricular hypertrophy with QRS widening T wave abnormality, consider lateral ischemia Abnormal ECG When compared with ECG of 14-MAR-2023 20:00, Nonspecific T wave abnormality no longer evident in Inferior leads Confirmed by Randolph Beckwith ([id number]) on 06/12/2023 3:47:00 PM Referred By: REFERRED SELF Confirmed By:Randolph Beckwith
[2023-06-12] MEDS: ALPRAZolam 0.25 MG TABLET PO PRN (17:00)
[2023-06-12] MEDS: FAMOTIDINE 10 MG TABLET PO ONE (17:24)
[2023-06-12] MEDS: ALPRAZolam 0.5 MG TABLET PO STA (17:33)
[2023-06-12] MEDS: ONDANSETRON INJ 2 MG/ML 2 ML VIAL IV PRN (17:35)
--- NOTE | 2023-06-12 18:16 | Hospitalist Progress Note ---
Date of Service June 12, 2023 Assessment & Plan (1) Abdominal pain, epigastric: Plan: Etiology unclear. ?Dehydration? Poor perfusion. ER attending states that patient was very cool and mottled on arrival with increased capillary refill time Improved with IVF -trend troponin -Repeat LFTs -Morphine and Zofran PRN (2) Chronic systolic (congestive) heart failure: Plan: Patient appears dry on exam slightly -Continue Valsartan/Sacbitril and Metoprolol -HOld Lasix and Sprionolactone -Monitor I/Os, daily weights (3) Hypertension: Plan: Chronic -Continue cardiac medications as above (4) CAD (coronary artery disease): Admission and Anticipated Discharge Date Admission Date: June 12, 2023 Subjective Patient Results & Data Results & Data Vital Signs (Past 12 Hours) Vital Signs Pulse Pulse Resp BP BP Pulse Ox O2 Del Method 06/12/23 15:50 70 19 96 06/12/23 15:40 70 23 94 06/12/23 15:36 70 17 96 06/12/23 15:36 104/82 06/12/23 15:30 69 22 97 06/12/23 15:25 70 22 94 Room Air 06/12/23 15:23 96 06/12/23 15:10 74 20 94 06/12/23 15:00 70 14 91 06/12/23 14:50 73 16 95 06/12/23 14:40 73 14 92 06/12/23 14:30 73 19 93 06/12/23 14:20 72 18 96 06/12/23 14:10 70 17 94 06/12/23 14:00 70 17 93 06/12/23 13:50 72 18 88 L 06/12/23 13:40 73 12 93 06/12/23 13:30 74 4 L 97 06/12/23 13:20 74 14 97 06/12/23 13:10 84 19 91 06/12/23 12:37 76 18 114/87 100 06/12/23 08:00 87 20 127/96 100 Room Air PG Care Time/CCT Total # of Minutes Spent Total Time Spent with Patient: Total time spent is greater than 50% in coordination of care (as documented) at patient's floor/unit and/or counseling patient: Coding Diagnoses Abdominal pain, epigastric R10.13 Chronic systolic (congestive) heart failure I50.22 Hypertension I10 CAD (coronary artery disease) I25.10 Associated angina: unspecified whether angina present Coronary Disease-Associated Artery/Lesion type: unspecified vessel or lesion type [place] vs. transplanted heart: unspecified whether [place] or transplanted heart (4) CAD (coronary artery disease) Associated angina: unspecified whether angina present Coronary Disease- Associated Artery/Lesion type: unspecified vessel or lesion type [place] vs. transplanted heart: unspecified whether [place] or transplanted heart Qualified Code(s): I25.10 - Atherosclerotic heart disease of [place] coronary artery without angina pectoris
--- NOTE | 2023-06-12 18:24 | Communication Note ---
Date of Service: June 12, 2023 Please refer to the H&P dictated earlier this morning for details of presentation on admission. In brief, the patient presented with chest pressure radiating to the back and generally feeling weak. He of note he is a very poor historian and has vague complaints. He was thought to be severely dehydrated and was given IV fluids. He states that he is feeling much better since getting fluids. He was found to be in acute kidney injury and his creatinine is trending downwards. Because of his chest pressure, his troponins have been trended. His echocardiogram did not show any new changes however his troponins are trending upward. Cardiology has been consulted. The patient has been wanting to leave [place]. He tells me that he has bipolar disorder and ADHD and had stopped taking his medications. He is having a hard time calming himself down. I convinced him to stay in the hospital but he is requesting Xanax. I ordered Xanax to help him calm down. I am hoping that he will stay in the hospital for us to be able to complete the workup and wait for his creatinine to stabilize.
[2023-06-13] MEDS ORDERED: Heparin IV Adult Wt-Based Standard w/ INITIAL Bolus Protocol IV STA (08:14)
[2023-06-13 08:39] LABS: Hematocrit (blood only) 50.1 % (42.0-52.0); Hemoglobin 16.6 g/dl (14.0-18.0); Mean Corpuscular Hemoglobin 29.6 pg (25.0-34.0); Mean Corpuscular Hgb Conc 33.1 g/dL (32.0-36.0); Mean Corpuscular Volume 89.5 fL (80.0-100.0); Platelet Count 305 K/uL (130-400); RDW Coefficient of Variation 14.8 % (11.5-14.5); RDW Standard Deviation 47.8 fL (36.4-46.3)
[2023-06-13 08:56] LABS: BUN Creatinine Ratio 25.2 (10-20); Bilirubin Direct 0.6 mg/dl (0-0.2); Bilirubin,Total 1.5 mg/dl (0.2-1.0); Calcium 8.2 mg/dl (8.6-10.3); Creatinine Clr Calc Pharmacy 86.2 ml/min; Est GFR (African American) 86.7 ml/min; Est GFR (Non-African American) 74.8 ml/min; Potassium 4.2 mmol/L (3.5-5.1); Total Protein 5.5 gm/dl (6.0-8.3)
[2023-06-13] MEDS: HEPARIN SODIUM/DEXTROSE 25,000 UNITS/500 ML BAG IV SCH (09:19)
[2023-06-13] MEDS: HEPARIN SOD (PORCINE) 1000 UNIT/ML IV ONE (09:19)
[2023-06-13 10:12] LABS: Basophils # (auto) 0.06 K/uL (0.00-0.20); Basophils % (auto) 0.8 %; Eosinophils # (auto) 0.05 K/uL (0.00-0.50); Eosinophils % (auto) 0.6 %; Hematocrit (blood only) 48.3 % (42.0-52.0); Hemoglobin 15.6 g/dl (14.0-18.0); Immature Granulocytes # (auto) 0.01 K/uL (0.01-0.20); Immature Granulocytes % (auto) 0.1 %; Lymphocytes # (auto) 1.66 K/uL (1.20-3.40); Lymphocytes % (auto) 21.1 %; Mean Corpuscular Hgb Conc 32.3 g/dL (32.0-36.0); Mean Corpuscular Volume 89.8 fL (80.0-100.0); Mean Platelet Volume 9.9 fL (9.4-12.4); Monocytes # (auto) 0.66 K/uL (0.11-0.59); Monocytes % (auto) 8.4 %; Neutrophils # (auto) 5.44 K/uL (1.40-6.50); Platelet Count 297 K/uL (130-400); RDW Coefficient of Variation 14.8 % (11.5-14.5); RDW Standard Deviation 47.9 fL (36.4-46.3); Red Blood Count 5.38 M/uL (4.70-6.10); White Blood Count 7.88 K/ul (4.8-10.8)
[2023-06-13 10:34] LABS: INR 2.2 (0.9-1.1); Partial Thromboplastin Ratio > 4.9; Prothrombin Time 22.8 Seconds (9.0-12.0)
[2023-06-13 10:43] LABS: Partial Thromboplastin Time > 139 Seconds (21-31)
--- NOTE | 2023-06-13 12:46 | Electrocardiogram Report ---
Test Reason : Blood Pressure : / mmHG Vent. Rate : 075 BPM Atrial Rate : 075 BPM P-R Int : 188 ms QRS Dur : 132 ms QT Int : 460 ms P-R-T Axes : 077 -41 187 degrees QTc Int : 513 ms Normal sinus rhythm Possible Left atrial enlargement Left axis deviation Left ventricular hypertrophy with QRS widening with repolarization abnormality Abnormal ECG When compared with ECG of 12-JUN-2023 18:24, (unconfirmed) No significant change Confirmed by Randolph Beckwith ([id number]) on 06/13/2023 12:46:18 PM Referred By: REFERRED SELF Confirmed By:Randolph Beckwith
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
--- NOTE | 2023-06-13 13:47 | Gastrointestinal Consultation ---
Date of Consultation June 13, 2023 Assessment & Plan (1) Abnormal finding on liver function: -Obtain acute infectious hepatitis studies to assess for overlapping issues -Trend LFTs -No biliary findings on CT imaging -Given overall clinical picture with EF of 15%, elevated troponin, elevated BNP, elevated LFTs, imaging findings of venous congestion related to right sided cardiac dysfunction, it seems likely that his LFTs and cirrhotic appearing liver are likely cardiac in nature. Supervising Physician Co-Signing Physician Notes Agree with LIDIA Abbasi as above Interviewed and examined patient and agree with above Gen: A+Ox3, refused to answer some questions, flat affect Abd: Soft, NT, ND, +BS Continue current therapy and supportive care Most likely liver numbers are secondary to Congestive hepatopathy. Cardiology following and appreciate their input. History of Present Illness Reason for Consultation: Elevated LFTs Attending Physician: Saray Perkins MD History of Present Illness Patient is a 47 yo male with PMH of Bipolar Disorder, HTN, MR, TR, ischemic cardiomyopathy and heart failure with EF of 15%. Patient went to [facility] on 06/11/23 for chest pain and nausea. He left AMA. He then presented to [facility] with epigastric pain and a upper respiratory symptoms. Lactate on admission was >4. CTA chest and abdomen excluded dissection and showed ascites with R sided cardiac dysfunction with associated venous liver congestion. Troponin 234.5. BNP 2585. INR 2.2, T bili 1.5, D bili 0.6, AST 314, ALT 392. Patient is minimally cooperative with an interview/assessment this afternoon. He does deny alcohol use or history of hepatitis. Cardiology has been consulted. Allergies Allergy/AdvReac Type Severity Reaction Status Date / Time Sulfa (Sulfonamide Allergy Intermediate Hives Verified 11/19/22 15:38 Antibiotics) Home Medications Medication Instructions Recorded Confirmed Type albuterol sulfate 90 mcg/actuation 2 puff inhalation Q6H PRN 11/01/22 06/12/23 Rx aerosol inhaler (Ventolin HFA) shortness of breath or wheezing #8.5 grams aspirin 81 mg tablet,delayed 81 mg PO DAILY #30 tabs 11/01/22 06/12/23 Rx release nicotine 21 mg/24 hr daily 21 mg transdermal QAM #14 ea 11/01/22 06/12/23 Rx transdermal patch (Nicoderm CQ) nitroglycerin 0.4 mg sublingual 0.4 mg sublingual Q5M PRN chest 11/01/22 06/12/23 Rx tablet (Nitrostat) pain #30 tabs pantoprazole 40 mg tablet,delayed 40 mg PO QAM #30 tabs 11/01/22 06/12/23 Rx release rosuvastatin 20 mg tablet (Crestor) 20 mg PO QAM #30 tabs 11/01/22 06/12/23 Rx furosemide 40 mg tablet (Lasix) 40 mg PO QAM #30 tabs 11/19/22 06/12/23 Rx metoprolol succinate 25 mg 25 mg PO QAM #30 tabs 11/19/22 06/12/23 Rx tablet,extended release 24 hr potassium chloride 20 mEq 20 meq PO QAM #30 tabs 11/19/22 06/12/23 Rx tablet,extended release(part/cryst) sacubitril 49 mg-valsartan 51 mg 1 tab PO BID #60 tabs 11/19/22 06/12/23 Rx tablet (Entresto) spironolactone 25 mg tablet 25 mg PO QAM #90 tabs 11/19/22 06/12/23 Rx Patient History Medical History Lab test negative for COVID-19 virus CHF (congestive heart failure) Elevated troponin I level Hypokalemia Ventricular tachycardia Tobacco abuse Cardiomyopathy Elevated troponin I level Chest pain High cholesterol Hypertension History of heart attack Family History Father Myocardial infarction Mother Stroke Brother Cirrhosis Sister Hypertension Social History Smoking Status: Current some day smoker Tobacco Type: Cigarettes Cigarettes Per Day: 1/2 pack; Second Hand Exposure: Yes; Do You Dip or Chew Tobacco: No; Hx Alcohol Use: No Hx Substance Use: Yes Last Used Substance: Days (ago) Last Used Substance Other:: "2 weeks ago" Preferred Language: Tunisian Communication Ability: Effective 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 Plant 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: No Beliefs That Will Affect Care: None Current Living Situation: Family Current Living Situation Comment: Sister Feels Safe at Home: Yes Assistive Devices: None Review of Systems Constitutional: no fever and no chills Respiratory: no cough and no dyspnea Cardiovascular: no chest pain Gastrointestinal: + abdominal pain; no melena Physical Exam Constitutional: well developed Respiratory: normal respiratory effort Cardiovascular: Rate/Rhythm: regular rate Gastrointestinal (Abdomen): normal bowel sounds, soft, nontender, no hepatosplenomegaly Psychiatric: Orientation: alert and oriented x 3 Results & Data Vital Signs (Past 12 Hours) Vital Signs Temp Pulse Pulse Resp BP Pulse Ox O2 Del Method 06/13/23 11:56 Room Air 06/13/23 11:53 36.4 C L 71 18 95/60 L 97 Room Air 06/13/23 07:32 36.6 C 80 18 122/85 97 Room Air 06/13/23 07:15 77 06/13/23 01:12 74 PG Care Time/CCT Total # of Minutes Spent Total Time Spent with Patient: Total time spent is greater than 50% in coordination of care (as documented) at patient's floor/unit and/or counseling patient: Coding Level of Care Code 08824 IN/OBS CONSULT LVL 4,60M Diagnoses Abnormal finding on liver function R94.5
--- NOTE | 2023-06-13 14:55 | Electrocardiogram Report ---
Test Reason : Blood Pressure : / mmHG Vent. Rate : 079 BPM Atrial Rate : 079 BPM P-R Int : 186 ms QRS Dur : 126 ms QT Int : 446 ms P-R-T Axes : 075 -30 112 degrees QTc Int : 511 ms Normal sinus rhythm Possible Left atrial enlargement Left axis deviation Left ventricular hypertrophy with QRS widening T wave abnormality, consider lateral ischemia Abnormal ECG When compared with ECG of 12-JUN-2023 03:25, No significant change was found Confirmed by Randolph Beckwith ([id number]) on 06/13/2023 2:54:41 PM Referred By: REFERRED SELF Confirmed By:Randolph Beckwith
--- NOTE | 2023-06-13 15:10 | Hospitalist Progress Note ---
Date of Service June 13, 2023 Assessment & Plan (1) Abdominal pain, epigastric: Plan: Abnormal LFTs, rising Abdominal CT shows findings concerning for cirrhosis, cirrhotic colopathy, ascites, venous congestion of the liver. No biliary findings. Consult GI (2) Chronic systolic (congestive) heart failure: Plan: Appears euvolemic today Continue Entresto, metoprolol Continue to hold Lasix and spironolactone Elevated troponin with chest discomfort. Cardiology consulted. They do not believe there is an acute coronary syndrome. Recommended that I stop the IV heparin drip. Echocardiogram showed no new changes. EF 15% Patient has history of nonischemic cardiomyopathy. Minimal coronary artery disease was seen in 2019 (3) Hypertension: Plan: Blood pressure was rather low on admission and still on the low side Continue to hold Lasix and spironolactone (4) Noncompliance: Plan: Patient has a history of bipolar disorder, ADHD. He stopped taking his medications He has racing thoughts and pressured speech. He gets restless and has left AMA in the past because of it. Because of his untreated psychiatric illness, his medical illnesses are difficult to take care of. Consulted psychiatry Currently on Xanax to help him relax Admission and Anticipated Discharge Date Admission Date: June 12, 2023 Subjective Patient had been wanting to leave AMA yesterday. He was also complaining of epigastric and chest discomfort. His troponins were rising. I spoke to the patient about my concerns and convinced him to stay in the hospital. He stated that he has issues with ADHD and bipolar disorder and he cannot help but be restless. He requested Ativan which was ordered. In the meantime, we trended his troponins, started him on heparin drip and consulted cardiology. This morning, cardiology did not think that the patient was going through an acute coronary syndrome nor was he fluid overloaded. They recommended that I stop the heparin drip. It was noted that the patient has been having epigastric and right upper quadrant pain along with elevated LFTs. GI was consulted. Because of the patient's psychiatric issues, psychiatry was consulted as well. Unfortunately the patient is a poor historian, has pressured of speech and gets very restless. Because of getting Ativan, he is quite drowsy now. This morning, he has not talked about leaving AGAINST MEDICAL ADVICE yet. Review of Systems Review of Systems: All systems reviewed & are unremarkable except as noted in Subjective Physical Exam Physical Exam: General: Sleeping, arousable. Able to converse when awakened. Heart: S1, S2/regular rate and rhythm, no murmur rubs or gallops Lungs: Clear to auscultation bilaterally. Normal effort Abdomen: Soft/nondistended. Tenderness to palpation in the right upper quadrant and epigastrium. Extremities: No clubbing/cyanosis. No edema Behavior: Appropriate, cooperative Results & Data Results & Data Vital Signs (Past 12 Hours) Vital Signs Temp Pulse Pulse Resp BP Pulse Ox O2 Del Method 06/13/23 14:53 81 06/13/23 11:56 Room Air 06/13/23 11:53 36.4 C L 71 18 95/60 L 97 Room Air 06/13/23 07:32 36.6 C 80 18 122/85 97 Room Air 06/13/23 07:15 77 Laboratory Results Abnormal lab results 06/12/23 06/12/23 06/13/23 Range/Units 14:44 19:43 07:39 RDW Std Deviation 47.8 H (36.4-46.3) fL RDW Coeff of Nicolás 14.8 H (11.5-14.5) % [place] # (Auto) (0.11-0.59) K/uL PT (9.0-12.0) Seconds INR (0.9-1.1) APTT (21-31) Seconds Sodium 132 L (136-145) mmol/L BUN 29 H (6-23) mg/dl BUN/Creatinine Ratio 25.2 H (10-20) Glucose 105 H (70-99(Fasting)) mg/dl Calcium 8.2 L (8.6-10.3) mg/dl Total Bilirubin 1.5 H (0.2-1.0) mg/dl Direct Bilirubin 0.6 H (0-0.2) mg/dl AST 314 H (13-39) U/L ALT 392 H (7-52) U/L Troponin I High Sens 91.4 H* D 234.5 H* D (0-20) pg/ml Total Protein 5.5 L (6.0-8.3) gm/dl Albumin 3.0 L (3.4-5.0) gm/dl 06/13/23 Range/Units 09:52 RDW Std Deviation 47.9 H (36.4-46.3) fL RDW Coeff of Nicolás 14.8 H (11.5-14.5) % [place] # (Auto) 0.66 H (0.11-0.59) K/uL PT 22.8 H (9.0-12.0) Seconds INR 2.2 H (0.9-1.1) APTT > 139 H* (21-31) Seconds Sodium (136-145) mmol/L BUN (6-23) mg/dl BUN/Creatinine Ratio (10-20) Glucose (70-99(Fasting)) mg/dl Calcium (8.6-10.3) mg/dl Total Bilirubin (0.2-1.0) mg/dl Direct Bilirubin (0-0.2) mg/dl AST (13-39) U/L ALT (7-52) U/L Troponin I High Sens (0-20) pg/ml Total Protein (6.0-8.3) gm/dl Albumin (3.4-5.0) gm/dl PG Care Time/CCT Total # of Minutes Spent Total Time Spent with Patient: Total time spent is greater than 50% in coordination of care (as documented) at patient's floor/unit and/or counseling patient: Coding Level of Care Code 62150 SUB INP/OBS CARE 2/35MIN Diagnoses Abdominal pain, epigastric R10.13 Chronic systolic (congestive) heart failure I50.22 Hypertension I10 Noncompliance Z91.199
[2023-06-13] MEDS: ALPRAZolam 0.5 MG TABLET PO PRN (15:49)
[2023-06-13] MEDS: MoRPHine SULFATE 2 MG/ML CARP IV PRN (15:52)
[2023-06-13] MEDS: ALPRAZolam 0.5 MG TABLET PO STA (21:42)
[2023-06-14 05:09] LABS: Albumin Globulin Ratio 1.3 (0.9-2); Albumin Level 2.9 gm/dl (3.4-5.0); BUN Creatinine Ratio 22.3 (10-20); Bilirubin,Total 0.9 mg/dl (0.2-1.0); Calcium 7.9 mg/dl (8.6-10.3); Creatinine Clr Calc Pharmacy 81.9 ml/min; Est GFR (African American) 81.6 ml/min; Est GFR (Non-African American) 70.4 ml/min; Globulin 2.3 gm/dl (2.5-4.0); Potassium 3.8 mmol/L (3.5-5.1); Total Protein 5.2 gm/dl (6.0-8.3)
[2023-06-14] MEDS ORDERED: ALPRAZolam 0.5 MG TABLET PO PRN (09:37)
--- NOTE | 2023-06-14 14:28 | Psychiatric Consultation ---
Date of Consultation June 14, 2023 Impression / Recommendations Impression Attempted to meet with patient for psychiatry consult but he did not want to participate in interview and per RN had already signed AMA paperwork to leave. Psych liason met with him yesterday and no safety concerns or 302 criteria at that time. Psych History Chief Complaint "[]". Allergies Allergy/AdvReac Type Severity Reaction Status Date / Time Sulfa (Sulfonamide Allergy Intermediate Hives Verified 11/19/22 15:38 Antibiotics) Home Medications Medication Instructions Recorded Confirmed Type albuterol sulfate 90 mcg/actuation 2 puff inhalation Q6H PRN 11/01/22 06/12/23 Rx aerosol inhaler (Ventolin HFA) shortness of breath or wheezing #8.5 grams aspirin 81 mg tablet,delayed 81 mg PO DAILY #30 tabs 11/01/22 06/12/23 Rx release nicotine 21 mg/24 hr daily 21 mg transdermal QAM #14 ea 11/01/22 06/12/23 Rx transdermal patch (Nicoderm CQ) nitroglycerin 0.4 mg sublingual 0.4 mg sublingual Q5M PRN chest 11/01/22 06/12/23 Rx tablet (Nitrostat) pain #30 tabs pantoprazole 40 mg tablet,delayed 40 mg PO QAM #30 tabs 11/01/22 06/12/23 Rx release rosuvastatin 20 mg tablet (Crestor) 20 mg PO QAM #30 tabs 11/01/22 06/12/23 Rx furosemide 40 mg tablet (Lasix) 40 mg PO QAM #30 tabs 11/19/22 06/12/23 Rx metoprolol succinate 25 mg 25 mg PO QAM #30 tabs 11/19/22 06/12/23 Rx tablet,extended release 24 hr potassium chloride 20 mEq 20 meq PO QAM #30 tabs 11/19/22 06/12/23 Rx tablet,extended release(part/cryst) sacubitril 49 mg-valsartan 51 mg 1 tab PO BID #60 tabs 11/19/22 06/12/23 Rx tablet (Entresto) spironolactone 25 mg tablet 25 mg PO QAM #90 tabs 11/19/22 06/12/23 Rx Patient History Medical History Lab test negative for COVID-19 virus CHF (congestive heart failure) Elevated troponin I level Hypokalemia Ventricular tachycardia Tobacco abuse Cardiomyopathy Elevated troponin I level Chest pain High cholesterol Hypertension History of heart attack Family History Father Myocardial infarction Mother Stroke Brother Cirrhosis Sister Hypertension Social History Smoking Status: Current some day smoker Tobacco Type: Cigarettes Cigarettes Per Day: 1/2 pack; Second Hand Exposure: Yes; Do You Dip or Chew Tobacco: No; Hx Alcohol Use: No Hx Substance Use: Yes Last Used Substance: Days (ago) Last Used Substance Other:: "2 weeks ago" Preferred Language: Welsh Communication Ability: Effective Grading Clerk Required: No Beliefs That Will Affect Care: None Current Living Situation: Family Current Living Situation Comment: Sister Feels Safe at Home: Yes Assistive Devices: None Physical Exam Vital Signs (Past 24 Hours): Last Vital Signs Temp 36.5 C 06/14/23 11:14 Pulse 74 06/14/23 11:14 Resp 18 06/14/23 11:14 BP 119/85 06/14/23 11:14 Pulse Ox 99 06/14/23 11:14 O2 Del Method Room Air 06/14/23 11:14 Results & Data (PSY) Medications Administered Al Hydrox/Mg Hydrox/Simethicone (Aluminum/Magnesium/Simeth (Maalox Max) 30 Ml Udc) 15 ml PO Q6H PRN PRN Reason: Dyspepsia Stop: 07/12/23 12:47 Last Admin: 06/13/23 11:35 Dose: 15 ml Documented By: JOSE MANUEL Admin: 06/12/23 13:21 Dose: 15 ml Documented By: ANDIE Metoprolol Succinate (Metoprolol Succ 25mg Ext Rel Tab) 25 mg PO QAM [facility] Stop: 07/12/23 08:59 Last Admin: 06/14/23 09:53 Dose: 25 mg Documented By: Admin: 06/13/23 09:20 Dose: 25 mg Documented By: JOSE MANUEL Admin: 06/12/23 10:33 Dose: 25 mg Documented By: MR Miscellaneous (Remove Nicoderm Patch) 1 each N/A DAILY@0859 [facility] Stop: 07/13/23 08:58 Last Admin: 06/14/23 09:54 Dose: 1 each Documented By: Admin: 06/13/23 09:20 Dose: 1 each Documented By: JOSE MANUEL Morphine Sulfate (Morphine Sulfate 4 Mg/Ml 1 Ml Carp\\Vial) 4 mg IV Q3H PRN PRN Reason: Pain (6,7,8,9,10) Stop: 06/26/23 07:39 Last Admin: 06/14/23 04:24 Dose: 4 mg Documented By: Admin: 06/12/23 08:37 Dose: 4 mg Documented By: Morphine Sulfate (Morphine Sulfate 2 Mg/Ml Carp) 2 mg IV Q3H PRN PRN Reason: Pain (1,2,3,4,5) & Pre PT Stop: 06/26/23 07:39 Last Admin: 06/13/23 15:52 Dose: 2 mg Documented By: JOSE MANUEL Nicotine (Nicotine 14 Mg/24 Hr Patch) [facility] [place] Stop: 07/12/23 14:44 Last Admin: 06/14/23 09:52 Dose: 1 patch Documented By: Admin: 06/13/23 09:20 Dose: 1 patch Documented By: JOSE MANUEL Admin: 06/12/23 15:21 Dose: 1 patch Documented By: ANDIE Ondansetron HCl (Ondansetron Inj 2 Mg/Ml 2 Ml Vial) 4 mg IV Q6H PRN PRN Reason: Nausea And Vomiting Stop: 07/12/23 07:39 Last Admin: 06/12/23 17:35 Dose: 4 mg Documented By: ANDIE Pantoprazole Sodium (Pantoprazole 40 Mg Tab) 40 mg PO QAM [facility] Stop: 07/12/23 08:59 Last Admin: 06/14/23 09:53 Dose: 40 mg Documented By: Admin: 06/13/23 09:20 Dose: 40 mg Documented By: JOSE MANUEL Admin: 06/12/23 10:33 Dose: 40 mg Documented By: Sacubitril/Valsartan (Valsartan/Sacubitril 51/49 Mg Tab) 1 tab PO BID [facility] Stop: 07/12/23 08:59 Last Admin: 06/14/23 09:53 Dose: 1 tab Documented By: Admin: 06/13/23 20:57 Dose: 1 tab Documented By: Admin: 06/13/23 09:20 Dose: 1 tab Documented By: JOSE MANUEL Admin: 06/12/23 21:28 Dose: 1 tab Documented By: Admin: 06/12/23 10:33 Dose: 1 tab Documented By: Coding Level of Care Code None
--- NOTE | 2023-06-14 19:27 | Hospitalist Progress Note ---
Date of Service June 14, 2023 Assessment & Plan (1) Abdominal pain, epigastric: Plan: Abnormal LFTs, trending down Abdominal CT shows findings concerning for cirrhosis, cirrhotic colopathy, ascites, venous congestion of the liver. No biliary findings. Per GI, his elevated LFTs and cirrhotic appearance of liver are likely cardiac in nature given overall picture with EF of 15% and imaging findings of venous congestion of liver Acute hepatitis panel ordered (2) Chronic systolic (congestive) heart failure: Plan: Appears euvolemic today Continue Entresto, metoprolol Continue to hold Lasix and spironolactone Elevated troponin with chest discomfort. Cardiology consulted. They do not believe there is an acute coronary syndrome. Recommended that I stop the IV heparin drip. Echocardiogram showed no new changes. EF 15% Patient has history of nonischemic cardiomyopathy. Minimal coronary artery disease was seen in 2019 (3) Hypertension: Plan: Blood pressure was rather low on admission and still on the low side Continue to hold Lasix and spironolactone (4) Noncompliance: Plan: Patient has a history of bipolar disorder, ADHD. He stopped taking his medications He has racing thoughts and pressured speech. He gets restless and has left AMA in the past because of it. Because of his untreated psychiatric illness, his medical illnesses are difficult to take care of. Consulted psychiatry. However patient did not want to participate in the interview with psychiatry. Patient signed the AMA paper but ended up staying since he does not have a ride Discontinued Xanax Admission and Anticipated Discharge Date Admission Date: June 12, 2023 Subjective During my encounter, patient walked from the bathroom back to his bed. He was still quite drowsy and jittery. He stated that he is feeling a little bit better. However he still does have abdominal pain Review of Systems Review of Systems: All systems reviewed & are unremarkable except as noted in Subjective Physical Exam Physical Exam: General: Awake, conversant. His conversation goes out in tangents and he has a hard time staying focused on 1 topic Heart: S1, S2/regular rate and rhythm, no murmur rubs or gallops Lungs: Clear to auscultation bilaterally. Normal effort Abdomen: Soft/nondistended. Tenderness to palpation in the right upper quadrant and epigastrium. Extremities: No clubbing/cyanosis. No edema Behavior: Appropriate, cooperative Results & Data Results & Data Vital Signs (Past 12 Hours) Vital Signs Temp Pulse Pulse Resp BP Pulse Ox O2 Del Method 06/14/23 11:14 36.5 C 74 18 119/85 99 Room Air 06/14/23 08:00 71 06/14/23 07:32 36.5 C 64 18 112/75 98 Room Air PG Care Time/CCT Total # of Minutes Spent Total Time Spent with Patient: Total time spent is greater than 50% in coordination of care (as documented) at patient's floor/unit and/or counseling patient: Coding Level of Care Code 51259 SUB INP/OBS CARE 2/35MIN Diagnoses Abdominal pain, epigastric R10.13 Chronic systolic (congestive) heart failure I50.22 Hypertension I10 Noncompliance Z91.199
[2023-06-15 03:47] LABS: HBSAG NON-REACTIVE (NON-REACTIVE); Hepatitis A Antibody IgM NON-REACTIVE (NON-REACTIVE); Hepatitis B Core Antibody IgM NON-REACTIVE (NON-REACTIVE)
[2023-06-15 05:28] LABS: Albumin Globulin Ratio 1.3 (0.9-2); Albumin Level 3.2 gm/dl (3.4-5.0); BUN Creatinine Ratio 20.4 (10-20); Bilirubin,Total 0.8 mg/dl (0.2-1.0); Calcium 8.2 mg/dl (8.6-10.3); Creatinine Clr Calc Pharmacy 91.8 ml/min; Est GFR (African American) 93.6 ml/min; Est GFR (Non-African American) 80.7 ml/min; Globulin 2.5 gm/dl (2.5-4.0); Potassium 4.1 mmol/L (3.5-5.1); Total Protein 5.7 gm/dl (6.0-8.3)
[2023-06-15 05:33] LABS: Basophils # (auto) 0.03 K/uL (0.00-0.20); Basophils % (auto) 0.4 %; Eosinophils # (auto) 0.09 K/uL (0.00-0.50); Eosinophils % (auto) 1.1 %; Hematocrit (blood only) 50.4 % (42.0-52.0); Hemoglobin 16.7 g/dl (14.0-18.0); Immature Granulocytes # (auto) 0.03 K/uL (0.01-0.20); Immature Granulocytes % (auto) 0.4 %; Lymphocytes # (auto) 1.57 K/uL (1.20-3.40); Lymphocytes % (auto) 19.8 %; Mean Corpuscular Hemoglobin 30.1 pg (25.0-34.0); Mean Corpuscular Hgb Conc 33.1 g/dL (32.0-36.0); Mean Platelet Volume 10.1 fL (9.4-12.4); Monocytes # (auto) 0.67 K/uL (0.11-0.59); Monocytes % (auto) 8.5 %; Neutrophils # (auto) 5.53 K/uL (1.40-6.50); Neutrophils % (auto) 69.8 %; Platelet Count 320 K/uL (130-400); RDW Coefficient of Variation 14.7 % (11.5-14.5); RDW Standard Deviation 49.3 fL (36.4-46.3); Red Blood Count 5.54 M/uL (4.70-6.10); White Blood Count 7.92 K/ul (4.8-10.8)
--- NOTE | 2023-06-15 14:35 | Discharge Summary ---
Date of Service June 15, 2023 Admission HPI Per Admitting Provider Geovanni Weeks is a 47yo male with h/o ICM woth EF of 15-20%, CAD presenting with abodminal pain. back pain. Patient was working on a car a couple of days ago and wasn't feeling well. Laid down and felt nausea. The next day he had some chest pressure that radiated into the back and abdomen. He was seen at [facility] +Chills, nausea and vomiting Admission Exam Per Admitting Provider General: patient resting comfortably, NAD, non-toxic in appearance, AA&O x 4 Skin: warm, dry, intact, no rashes or lesions HEENT: NC/AT, PERRL, EOMI, anicteric sclera, conjunctiva without injection, external ear normal to inspection and nontender, nares patent, moist mucus membranes, dentition intact, no oropharyngeal lesions, neck supple, trachea midline, no LAD, no thyromegaly, no JVD Heart: +S1/S2, regular, no m/r/g Lungs: equal air entry bilaterally, no rales/rhonchi/wheezes Abd: +BS, soft, NT/ND, no masses/organomegaly/ascites Ext: warm, 2+ pulses in UE/LE bilaterally, no clubbing/cyanosis or edema Neuro: nonfocal, patient AA&O x 4, speech intact, no facial droop, moving all extremities on command with equal strength 5/5 Principal Diagnosis Acute dehydration due to poor p.o. intake and continuing diuretics Epigastric pain likely due to acid reflux Liver cirrhosis most likely cardiac in etiology Noncompliance to medications, office visits Bipolar disorder, ADHD Substance abuse Chronic systolic congestive heart failure with an EF of 15% Discharge Exam General: Sleeping, arousable. Able to hold a conversation. Heart: S1, S2/regular rate and rhythm, no murmur rubs or gallops Lungs: Clear to auscultation bilaterally. Normal effort Abdomen: Soft/nondistended. Mild tenderness to palpation in the right upper quadrant and epigastrium. Extremities: No clubbing/cyanosis. No edema Behavior: Appropriate, cooperative Discharge Data Allergies Allergy/AdvReac Type Severity Reaction Status Date / Time Sulfa (Sulfonamide Allergy Intermediate Hives Verified 11/19/22 15:38 Antibiotics) Consultations 06/12/23 05:20 ED Decision to Admit Stat 06/12/23 18:12 Consult Cardiology Routine 06/13/23 09:16 Consult Psychiatry Routine 06/13/23 10:56 Consult Gastroenterology Routine Ordered Studies 06/12/23 03:27 CT angio chest dissec wo/w con Stat CTA abd pelvis wo/w con [CT angio abd pelvis wo/w con] Stat Hospital Course (1) Abdominal pain, epigastric: Abnormal LFTs, trending down Abdominal CT shows findings concerning for cirrhosis, cirrhotic colopathy, ascites, venous congestion of the liver. No biliary findings. Per GI, his elevated LFTs and cirrhotic appearance of liver are likely cardiac in nature given overall picture with EF of 15% and imaging findings of venous congestion of liver Acute hepatitis panel negative His abdominal pain seems to have resolved for the most part (2) Chronic systolic (congestive) heart failure: Appears euvolemic today Continue Entresto, metoprolol Resume Lasix and Aldactone Elevated troponin with chest discomfort. Cardiology consulted. They do not believe there is an acute coronary syndrome. Recommended discontinuation of IV heparin drip. Echocardiogram showed no new changes. EF 15% Patient has history of nonischemic cardiomyopathy. Minimal coronary artery disease was seen in 2019 (3) Hypertension: Blood pressure was rather low on admission Most likely secondary to poor p.o. intake Blood pressure starting to go up Resume Aldactone and Lasix (4) Noncompliance: Patient has a history of bipolar disorder, ADHD. He stopped taking his medications He has racing thoughts and pressured speech. He gets restless and has left AMA in the past because of it. Because of his untreated psychiatric illness, his medical illnesses are difficult to take care of. Consulted psychiatry. However patient did not want to participate in the interview with psychiatry. Patient signed the AMA paper but ended up staying since he does not have a ride Discontinued Xanax and morphine Patient has been discharged today Talk to him about the importance of compliance and follow-up Patient says that he does not have any doctor as he recently moved However he has the resources and he says that he will call to schedule an appointment Plan Discharge today Total Time Total Time Spent Total Time Spent (In Minutes): 35 Discharge Plan Discharge Items Patient Disposition: Home - Self-Care Reason For Visit: CHEST, BACK, ABDOMINAL PAIN Discharge Diagnosis: Acute dehydration due to poor p.o. intake and continuing diuretics Epigastric pain likely due to acid reflux Liver cirrhosis most likely cardiac in etiology Noncompliance to medications, office visits Bipolar disorder, ADHD Substance abuse Chronic systolic congestive heart failure with an EF of 15% Activity: Resume your previous activity Non-emergency contact: Primary Care Provider Call non-emergency contact if: you have any medication questions and your symptoms worsen Follow-up/Referrals: PCP,NO [Primary Care Provider] - Diet: Carb Consistent or DM2, Heart Healthy and Low Sodium (2gm) Addtl Attending Provider Instructions: You were given information about PCP earlier. Please make a choice and establish a PCP. Advised against substance abuse Advised on the importance of medication compliance Pending Studies at Discharge: No Stand-Alone Forms: My [facility] [place], Smoking Cessation Medications and DC Order Prescriptions: Continued furosemide [Lasix] 40 mg tablet 40 mg PO QAM Qty: 30 3RF Rx Instructions: last filled in Nov 2022 per pharmacy 06/12/23 metoprolol succinate 25 mg tablet extended release 24 hr 25 mg PO QAM Qty: 30 1RF Rx Instructions: last filled in Nov 2022 per pharmacy 06/12/23 potassium chloride 20 mEq tablet,ER particles/crystals 20 meq PO QAM Qty: 30 0RF Rx Instructions: last filled in Nov 2022 per pharmacy 06/12/23 Entresto 49-51 mg tablet 1 tab PO BID Qty: 60 1RF Rx Instructions: last filled in Nov 2022 per pharmacy 06/12/23 spironolactone 25 mg tablet 25 mg PO QAM Qty: 90 3RF Rx Instructions: last filled in Nov 2022 per pharmacy 06/12/23 albuterol sulfate [Ventolin HFA] 90 mcg/actuation Hfa Aerosol Inhaler 2 puff inhalation Q6H PRN (Reason: shortness of breath or wheezing) Qty: 8.5 0RF nicotine [Nicoderm CQ] 21 mg/24 hr Patch 24 Hour 21 mg transdermal QAM Qty: 14 0RF Rx Instructions: OTC unable to verify nitroglycerin [Nitrostat] 0.4 mg Tablet, Sublingual 0.4 mg sublingual Q5M PRN (Reason: chest pain) Qty: 30 0RF Rx Instructions: last filled Oct 2022 x 3 doses and call your doctor or go to the hospital rosuvastatin [Crestor] 20 mg Tablet 20 mg PO QAM Qty: 30 0RF Rx Instructions: last filled in Nov 2022 per pharmacy 06/12/23 aspirin 81 mg Tablet,Delayed Release (Dr/Ec) 81 mg PO DAILY Qty: 30 0RF pantoprazole 40 mg Tablet,Delayed Release (Dr/Ec) 40 mg PO QAM Qty: 30 0RF Rx Instructions: unable to verify with pharmacy 06/12/23 Discharge Orders: Discharge Order (Routine); Ordered 06/15/23 Ordered By: Saray Perkins Admission Data Admit Date/Time: 06/12/23 05:52 Attending Provider: Saray Perkins Admit Provider: Yary Porras Primary Care Provider: PCP,NO Other Providers: Yary Porras; Randolph Beckwith; Smitha Webster; Davon Fontana; Aren Castillo Jr; Marcy Mistry; Bee Spann; Sean Vogt Coding Level of Care Code 95366 INP/OBS DISCH >30 MIN Diagnoses Abdominal pain, epigastric R10.13 Chronic systolic (congestive) heart failure I50.22 Hypertension I10 Noncompliance Z91.199
[2023-06-15 17:23] LABS: A calco-baum cmplx NotReported Not Detected (NotDetected); Bact fragilis Not Reported Not Detected (NotDetected); Blood Culture Id Panel See PCR Comment (NotDetected); C auris Not Reported Not Detected (NotDetected); Calbicans Not Reported Not Detected (NotDetected); Candida glabrata Not Reported Not Detected (NotDetected); Candida krusei Not Reported Not Detected (NotDetected); Cneoformans/gatti Not Reported Not Detected (NotDetected); Cparapsilosis Not Reported Not Detected (NotDetected); E cloacae compx Not Reported Not Detected (NotDetected); Efaecalis Not Reported Not Detected (NotDetected); Efaecium Not Reported Not Detected (NotDetected); Enterobacterales Not Reported Not Detected (NotDetected); Escherichia coli Not Reported Not Detected (NotDetected); H influenzae Not Reported Not Detected (NotDetected); K aerogenes Not Reported Not Detected (NotDetected); Koxytoca Not Reported Not Detected (NotDetected); Kpneumoniae grp Not Reported Not Detected (NotDetected); Lmonocyt Not Reported Not Detected (NotDetected); N meningitidis Not Reported Not Detected (NotDetected); P aeruginosa Not Reported Not Detected (NotDetected); Proteus spp Not Reported Not Detected (NotDetected); Salmonella spp Not Reported Not Detected (NotDetected); Smarcescens Not Reported Not Detected (NotDetected); Staph lugdunensis Not Reported Not Detected (NotDetected); Staph spp. Not Reported DETECTED (NotDetected); Staphaureus Not Reported Not Detected (NotDetected); Staphepi Not Reported Not Detected (NotDetected); Stenmaltophilia Not Reported Not Detected (NotDetected); Strep agal(GrpB) Not Reported Not Detected (NotDetected); Strep pneum Not Reported Not Detected (NotDetected); Strep pyog (GrpA) Not Reported Not Detected (NotDetected); Strep spp Not Reported Not Detected (NotDetected)
[2023-06-15 18:09] LABS: Staphylococcus spp. DETECTED (NotDetected)
== END 2023-06-15 14:15 | disposition home or self-care (01) | DRG 641 ==
LOC: SUATTDRO → ED 03:18 → SUATTDRO 05:52 → EDINP 05:52 → 2W 07:42
DX: I27.20 Pulmonary hypertension, unspecified; F17.210 Nicotine dependence, cigarettes, uncomplicated; Z79.82 Long term (current) use of aspirin; Z91.128 Patient's intentional underdosing of medication regimen for other reason; I25.10 Atherosclerotic heart disease of native coronary artery without angina pectoris; Z82.49 Family history of ischemic heart disease and other diseases of the circulatory system; Z91.199 Patient's noncompliance with other medical treatment and regimen due to unspecified reason; I11.0 Hypertensive heart disease with heart failure; F31.9 Bipolar disorder, unspecified; Z88.2 Allergy status to sulfonamides; Z79.899 Other long term (current) drug therapy; N17.9 Acute kidney failure, unspecified; K76.1 Chronic passive congestion of liver; K21.9 Gastro-esophageal reflux disease without esophagitis; I50.22 Chronic systolic (congestive) heart failure; R77.8 Other specified abnormalities of plasma proteins; F90.9 Attention-deficit hyperactivity disorder, unspecified type; I25.5 Ischemic cardiomyopathy; Z82.3 Family history of stroke; I08.1 Rheumatic disorders of both mitral and tricuspid valves; E86.0 Dehydration